=== PATIENT | female | born 1960 | race Caucasian/White ===

== ENCOUNTER 2019-08-12 14:13 | Outpatient (CLI) | payer MEDICAID, SELFPAY ==
--- NOTE | 2019-08-12 10:15 | DI.RAD_ITS ---
EXAM: XR KNEE LT 2V AP,LAT CLINICAL HISTORY: pain. TECHNIQUE: 2D digital imaging was performed. COMPARISON: No exams were available for comparison FINDINGS: BONES: No acute fracture is present. No bony destructive lesion is seen. Periarticular spurring is s een in the lateral femoral tibial joint and the patellofemoral joint. JOINTS: The knee is normally aligned. Small joint effusion. There is marked narrowing of the medial femoral tibial joint space. SOFT TISSUE: Normal. IMPRESSION: Degenerative changes of the left knee. DATA REPOSITORY: RADIATION DOSE DELIVERED:
== END 2019-08-12 14:33 ==
PROVIDERS: PCP Nurse Practitioner Family; Referring Provider Nurse Practitioner Family; Visit Provider Orthopaedic Surgery
DX: M25.562 Pain in left knee (principal); M25.462 Effusion, left knee; M17.12 Unilateral primary osteoarthritis, left knee
CPT/HCPCS: 73560

== ENCOUNTER 2020-12-29 11:58 | Outpatient (CLI) | payer MEDICAID, SELFPAY ==
--- NOTE | 2020-12-29 10:30 | DI.RAD_ITS ---
Exam(s) XR KNEE LT 1V XR STANDING ALIGNMENT EXAM: XR STANDING ALIGNMENT and XR knee LT 1 V CLINICAL HISTORY: left knee DJD. TECHNIQUE: 2D digital imaging was performed. COMPARISON: CR XR KNEE LT 2V AP,LAT from 08/12/2019 CR XR KNEE LT 2V AP,LAT from 08/12/2019 FINDINGS: Evaluation of the left knee, again shows marked loss of the medial joint compartment with bone on bon e. Mild spurring is seen at the posterior patella. There is a left knee joint effusion. The right knee is well maintained. The hips and ankles are unremarkable. The right lower extremity measures 79.4 cm. The left lower extremity measures 80.4 cm. SOFT TISSUE: Normal. IMPRESSION: Osteoarthritis of the left knee. DATA REPOSITORY: RADIATION DOSE DELIVERED:
== END 2020-12-29 11:59 | disposition home or self-care (01) ==
LOC: DIORS 11:59
PROVIDERS: PCP Nurse Practitioner Family; Referring Provider Nurse Practitioner Family; Visit Provider Physician Assistant
DX: M25.562 Pain in left knee (principal); M25.462 Effusion, left knee; M17.12 Unilateral primary osteoarthritis, left knee
CPT/HCPCS: 73560; 77073

== ENCOUNTER 2021-03-13 03:12 | Outpatient (CLI) | payer MEDICAID, SELFPAY ==
[2021-03-13 09:58] LABS: HCT 41.5 % (36.0-46.0); HGB 12.5 g/dL (11.2-15.7); MCH 28.3 pg (27.0-33.0); MCHC 30.1 % (32.0-36.0); MCV 94.1 fL (80-95); MPV 9.4 fL (8.0-11.0); Platelet Count 222 10^3/uL (130-400); RBC 4.41 10^6/uL (3.93-5.22); RDW 14.6 % (11.7-14.6); RDW-SD 50.9 fL; WBC 6.97 10^3/uL (4.4-10.8)
[2021-03-13 10:50] LABS: Anion Gap 7.8 mmol/L (3-11); BUN 21 mg/dL (7-18); CO2 29.2 mmol/L (21.0-32.0); CREATININE 0.9 mg/dL (0.55-1.02); Calcium 8.8 mg/dL (8.5-10.1); Chloride 105 mmol/L (98-107); Glucose 99 mg/dL (74-106); Potassium 4.6 mmol/L (3.5-5.1); Sodium 142 mmol/L (136-145)
[2021-03-13 13:34] LABS: Source Nasal/Nares
[2021-03-13 18:38] LABS: COVID-19 PCR Negative (Negative)
== END 2021-03-13 03:13 | disposition home or self-care (01) ==
LOC: LBO 03:12
PROVIDERS: PCP Student in an Organized Health Care Education/Training Program; Visit Provider Student in an Organized Health Care Education/Training Program
DX: M25.562 Pain in left knee (principal); M17.12 Unilateral primary osteoarthritis, left knee; Z20.822 Contact with and (suspected) exposure to COVID-19; Z01.818 Encounter for other preprocedural examination; Z01.812 Encounter for preprocedural laboratory examination
CPT/HCPCS: 36415; 80048; 85027; 87635

== ENCOUNTER 2021-03-14 07:52 | Day surgery (SDC) | payer MEDICAID, SELFPAY ==
[2021-03-14] VITALS (11 sets, daily range): BP systolic 117–170; BP diastolic 51–104; PULSE 44–68; RESP 12–16; TEMP 36.2–36.6; O2SAT 93–99; BMI 35.3
--- NOTE | 2021-03-14 07:36 | DSE_ITS ---
Documented by User: Haily Brian 03/14/21 07:42 DS: Diagnosis Discharge Diagnosis (1) Primary osteoarthritis of left knee: Status: Chronic Discharge Plan Disposition Patient Disposition: HOME Condition: Good Discharge Details Reason For Visit: Left knee DJD Attending Provider: Aldair Marina Primary Care Provider: Judy Strickland Home Meds and New Rx's Prescriptions: New acetaminophen 500 mg tablet 1,000 mg PO Q8H PRN Qty: 90 RF: 0 aspirin 81 mg tablet,delayed release (DR/EC) 81 mg PO BID 30 Days Qty: 60 RF: 0 celecoxib [Celebrex] 200 mg capsule 200 mg PO BID Qty: 30 RF: 0 docusate sodium [Colace] 100 mg capsule 100 mg PO BID Qty: 30 RF: 0 gabapentin 300 mg capsule 300 mg PO QHS Qty: 14 RF: 0 oxycodone 5 mg tablet 5 mg PO Q4H PRN (Reason: severe post-operative pain) Qty: 18 RF: 0 Continued magnesium 200 mg tablet 200 mg PO .COMPLEX RF: 0 Trelegy Ellipta 100-62.5-25 mcg blister with device 1 inh IH DAILY Qty: 60 RF: 12 omeprazole 20 mg tablet,delayed release (DR/EC) 20 mg PO BID PRN PRN (Reason: acid reflux) RF: 0 albuterol sulfate [Ventolin HFA] 90 mcg/actuation HFA aerosol inhaler 2 puff Inhalation PRN PRN (Reason: shortness of breath or wheezing) Qty: 8.5 RF: 12 albuterol sulfate 2.5 mg /3 mL (0.083 %) solution for nebulization 2.5 mg Inhalation PRN PRN (Reason: shortness of breath or wheezing) Qty: 90 RF: 12 loratadine 5 MG/5 ML solution 10 mg PO DAILY PRNRF: 0 multivitamin 1 EACH capsule 1 ea PO DAILY RF: 0 cholecalciferol (vitamin D3) [Vitamin D3] 2,000 UNIT tablet 2,000 unit PO DAILY RF: 0 Discontinued celecoxib [Celebrex] 200 mg capsule 200 mg PO BID Qty: 180 RF: 4 No Action celecoxib [Celebrex] 200 mg Capsule 200 mg BID RF: 0 acetaminophen [Tylenol Extra Strength] 500 mg Capsule 1,500 mg PO TID RF: 0 Discharge Instructions Additional Instructions: Total Knee Discharge Instructions Activity: The most important activity is to walk. You should try to take short walks a few times a day. It is important that when resting you work on keeping the knee straight. Avoid putting a pillow behind the knee as this will encourage flexion. Work on range of motion exercises as provided by [facility]. If you have the [employer] bike coming, this will be your primary tool for exercise after the knee replacement. You should use it and follow the directions for the knee. Utilize the other exercises sparingly based on your symptoms. - Start outpatient physical therapy within 2 weeks. - You should wear the DEDRA hose on both legs for 2 weeks. You may remove these at night. You may also use any compression sock in place of the DEDRA hose. - Utilize [employer] to review exercises, see videos on exercises and obtain basic information pertaining to your surgery and your recovery. Dressing: Remove the Darion wrap by 2 days after your surgery and put on the DEDRA stocking given to you from the hospital. Keep the surgical dressing (underneath the DARION wrap) in place for at least one week. After the first week it may be removed and replaced with light gauze and tape or nothing. The wound and dressing may get wet after 3 days but avoid soaking the dressing or otherwise it will need to be changed. Many people prefer covering the dressing with cling wrap (saran wrap) to minimize it from getting soaked. If it gets wet, just pat dry. If it starts to peel off then it will need to be changed. Medications: - You should take Tylenol and anti-inflammatory Celebrex as your primary pain control medications. If the Celebrex is too expensive or not covered, please call the office for another alternative (Advil/Ibuprofen or Naproxen/Aleve) - You have been prescribed a stronger pain medication Oxycodone for breakthrough pain, take as needed as prescribed. - You normally take Omeprazole, a stomach acid reduction agent will continue to take this daily after surgery to help reduce stomach acid and reflux. - You have been prescribed Gabapentin to take at night for restlessness and nerve pain. - You will be taking Aspirin 81mg twice a day for DVT prevention unless instructed otherwise. - If you have constipation you should take Colace (which has been prescribed) or Miralax (which may be purchased [id number]). It takes most people 3-4 days to have a bowel movement. Follow-up: 2 weeks If you have any acute concerns or questions, please do not hesitate to contact the office at [phone]. You may contact Dr. Marina with any questions after hours through the hospital at [phone] or on his cell phone at [phone]. Referrals: Aldair Marina MD [ [facility] STAFF PHYSICIAN] - Equipment/Supplies: Walker Activity:: Elevate Remove Dressings/Wound Care:: Do Not Remove Shower/Bathe:: Cover Diet:: As Tolerated Discharge Orders Discharge Orders: Discharge Order (Routine); Ordered 03/14/21 Ordered By: Aldair Marina DS: Data Vitals/I&O Vitals and I&O: Intake & Output 03/13/21 03/13/21 03/14/21 11:59 23:59 11:59 Weight 79.4 kg PFSH All Active Problems (Updated 03/14/21 @ 08:26 by Bridget Panda) Primary osteoarthritis of left knee (Chronic) Most recent steroid injection: 09/12/2020; 06/02/2020 Synvisc injection: 07/12/2020 Intestinal disaccharidase deficiency (Acute) Anemia (Chronic) pt denies history of anemia Generalized anxiety disorder (Acute) Depressive disorder (Chronic) Obstructive sleep apnea syndrome in adult (Acute) Migraine without aura (Acute) Allergic rhinitis (Acute) Cholelithiasis without obstruction (Acute) Localized edema (Acute) Polyp of cervix (Acute) Menopause present (Acute) Derangement of medial meniscus of left knee (Acute) COPD (chronic obstructive pulmonary disease) (Chronic) Medical History (Updated 03/14/21 @ 08:26 by Bridget Panda) Acute bronchospasm Acute exacerbation of chronic obstructive airways disease COPD (chronic obstructive pulmonary disease) History of asthma History of obstructive sleep apnea pt. reports resolved with wt. 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 reports two procedures Family History (Updated 01/03/21 @ 15:21 by Tiara Scott) Mother Heart disease Hypertension Sister Heart disease age 61 Hypertension Father Emphysema, unspecified Social History (Updated 03/10/21 @ 14:07 by Della Gray) Smoking/Tobacco Use Status: Former Tobacco Use Quit Date: 08/28/01 Pack-years: 40 Second Hand Exposure: Yes Smoking risk assessment performed?: Yes Alcohol Intake: current Alcohol Intake frequency: a few times a month Alcohol type: wine Details: 1 wine weekly Drug use: Never Substance use type: does not use Details: alcohol: t-2, glass of wine Current gender identity: female Do you feel safe at home: Yes Do you feel safe in your relationship?: Yes Additional Social history: 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 Documented by User: Aldair Marina MD 03/14/21 13:57 Date of service: 03/14/21 Time of Service: 13:56 Discharge Plan Disposition Patient Disposition: HOME Condition: Good Discharge Details Reason For Visit: Left knee DJD Attending Provider: Aldair Marina Primary Care Provider: Judy Strickland Home Meds and New Rx's Prescriptions: New acetaminophen 500 mg tablet 1,000 mg PO Q8H PRN Qty: 90 RF: 0 aspirin 81 mg tablet,delayed release (DR/EC) 81 mg PO BID 30 Days Qty: 60 RF: 0 celecoxib [Celebrex] 200 mg capsule 200 mg PO BID Qty: 30 RF: 0 docusate sodium [Colace] 100 mg capsule 100 mg PO BID Qty: 30 RF: 0 gabapentin 300 mg capsule 300 mg PO QHS Qty: 14 RF: 0 oxycodone 5 mg tablet 5 mg PO Q4H PRN (Reason: severe post-operative pain) Qty: 18 RF: 0 Continued magnesium 200 mg tablet 200 mg PO .COMPLEX RF: 0 Trelegy Ellipta 100-62.5-25 mcg blister with device 1 inh IH DAILY Qty: 60 RF: 12 omeprazole 20 mg tablet,delayed release (DR/EC) 20 mg PO BID PRN PRN (Reason: acid reflux) RF: 0 albuterol sulfate [Ventolin HFA] 90 mcg/actuation HFA aerosol inhaler 2 puff Inhalation PRN PRN (Reason: shortness of breath or wheezing) Qty: 8.5 RF: 12 albuterol sulfate 2.5 mg /3 mL (0.083 %) solution for nebulization 2.5 mg Inhalation PRN PRN (Reason: shortness of breath or wheezing) Qty: 90 RF: 12 loratadine 5 MG/5 ML solution 10 mg PO DAILY PRNRF: 0 multivitamin 1 EACH capsule 1 ea PO DAILY RF: 0 cholecalciferol (vitamin D3) [Vitamin D3] 2,000 UNIT tablet 2,000 unit PO DAILY RF: 0 Discontinued celecoxib [Celebrex] 200 mg capsule 200 mg PO BID Qty: 180 RF: 4 No Action celecoxib [Celebrex] 200 mg Capsule 200 mg BID RF: 0 acetaminophen [Tylenol Extra Strength] 500 mg Capsule 1,500 mg PO TID RF: 0 Discharge Instructions Additional Instructions: Total Knee Discharge Instructions Activity: The most important activity is to walk. You should try to take short walks a few times a day. It is important that when resting you work on keeping the knee straight. Avoid putting a pillow behind the knee as this will encourage flexion. Work on range of motion exercises as provided by Physical [facility]. If you have the [employer] bike coming, this will be your primary tool for exercise after the knee replacement. You should use it and follow the dire ctions for the knee. Utilize the other exercises sparingly based on your symptoms. - Start outpatient physical therapy within 2 weeks. - You should wear the DEDRA hose on both legs for 2 weeks. You may remove these at night. You may also use any compression sock in place of the DEDRA hose. - Utilize [employer] to review exercises, see videos on exercises and obtain basic information pertaining to your surgery and your recovery. Dressing: Remove the Darion wrap by 2 days after your surgery and put on the DEDRA stocking given to you from the hospital. Keep the surgical dressing (underneath the DARION wrap) in place for at least one week. After the first week it may be removed and replaced with light gauze and tape or nothing. The wound and dressing may get wet after 3 days but avoid soaking the dressing or otherwise it will need to be changed. Many people prefer covering the dressing with cling wrap (saran wrap) to minimize it from getting soaked. If it gets wet, just pat dry. If it starts to peel off then it will need to be changed. Medications: - You should take Tylenol and anti-inflammatory Celebrex as your primary pain co ntrol medications. If the Celebrex is too expensive or not covered, please call the office for another alternative (Advil/Ibuprofen or Naproxen/Aleve) - You have been prescribed a stronger pain medication Oxycodone for breakthrough pain, take as needed as prescribed. - You normally take Omeprazole, a stomach acid reduction agent will continue to take this daily after surgery to help reduce stomach acid and reflux. - You have been prescribed Gabapentin to take at night for restlessness and nerve pain. - You will be taking Aspirin 81mg twice a day for DVT prevention unless instructed otherwise. - If you have constipation you should take Colace (which has been prescribed) or Miralax (which may be purchased [id number]). It takes most people 3-4 days to have a bowel movement. Follow-up: 2 weeks If you have any acute concerns or questions, please do not hesitate to contact the office at [phone]. You may contact Dr. Marina with any questions after hours through the hospital at [phone] or on his cell phone at [phone]. Referrals: Aldair Marina MD [ [facility] STAFF PHYSICIAN] - Equipment/Supplies: Walker Activity:: Elevate Remove Dressings/Wound Care:: Do Not Remove Shower/Bathe:: Cover Diet:: As Tolerated Discharge Orders Discharge Orders: Discharge Order (Routine); Ordered 03/14/21 Ordered By: Aldair Marina DS: Summary Time Spent with Patient providing and/or coordinating discharge services: Less than 30 minutes Status at Discharge Functional status at discharge: uses cane/walker Overall status at discharge: patient is progressing back to baseline Mental Status: mental status grossly normal Speech and Movement: speech and movement normal Mood: congruent mood Affect: normal affect Exam Psych Mental Status: mental status grossly normal Speech and Movement: speech and movement normal Mood: congruent mood Affect: normal affect PFSH All Active Problems (Updated 03/14/21 @ 08:26 by Bridget Panda) Primary osteoarthritis of left knee (Chronic) Most recent steroid injection: 09/12/2020; 06/02/2020 Synvisc injection: 07/12/2020 Intestinal disaccharidase deficiency (Acute) Anemia (Chronic) pt denies history of anemia Generalized anxiety disorder (Acute) Depressive disorder (Chronic) Obstructive sleep apnea syndrome in adult (Acute) Migraine without aura (Acute) Allergic rhinitis (Acute) Cholelithiasis without obstruction (Acute) Localized edema (Acute) Polyp of cervix (Acute) Menopause present (Acute) Derangement of medial meniscus of left knee (Acute) COPD (chronic obstructive pulmonary disease) (Chronic) Medical History (Updated 03/14/21 @ 08:26 by Bridget Panda) Acute bronchospasm Acute exacerbation of chronic obstructive airways disease COPD (chronic obstructive pulmonary disease) History of asthma History of obstructive sleep apnea pt. reports resolved with wt. 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 reports two procedures Family History (Updated 01/03/21 @ 15:21 by Tiara Scott) Mother Heart disease Hypertension Sister Heart disease age 61 Hypertension Father Emphysema, unspecified Social History (Updated 03/10/21 @ 14:07 by Della Gray) Smoking/Tobacco Use Status: Former Tobacco Use Quit Date: 08/28/01 Pack-years: 40 Second Hand Exposure: Yes Smoking risk assessment performed?: Yes Alcohol Intake: current Alcohol Intake frequency: a few times a month Alcohol type: wine Details: 1 wine weekly Drug use: Never Substance use type: does not use Details: alcohol: t-2, glass of wine Current gender identity: female Do you feel safe at home: Yes Do you feel safe in your relationship?: Yes Additional Social history: 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
[2021-03-14] MEDS: Celecoxib 200 MG CAP 400 MG PO (08:44)
[2021-03-14] MEDS: Acetaminophen 500 MG TAB 1000 MG PO (08:44)
[2021-03-14] MEDS: Gabapentin 300 MG CAP PO (08:45)
[2021-03-14] MEDS: Lactated Ringers 1,000 ML 80 ML IV (08:55)
--- NOTE | 2021-03-14 09:06 | W.ANESPRE ---
General Info Date of Service Date Performed: 03/14/21 Height: 4 ft 11 in Weight: 79.4 kg Body Mass Index (BMI): 35.3 Surgical Procedure: Operation Date: 03/14/21 09:40 Proposed Procedures Side Surgeon p Knee Total Arthroplasty Left Aldair Marina MD Meds Allergies and Home Medications Allergies Allergy/AdvReac Type Severity Reaction Status Date / Time prednisone Allergy Severe freezes Unverified 03/14/21 08:16 joints, hands swell, affects breathing, hives/rash levofloxacin [From Levaquin] Allergy Intermediate Skin Rash Unverified 03/14/21 08:16 Home Medication Medication Instructions Recorded cholecalciferol (vitamin D3) 2,000 unit PO DAILY 10/11/16 [Vitamin D3] multivitamin 1 ea PO DAILY 10/11/16 loratadine 10 mg PO DAILY PRN ml 10/17/17 albuterol sulfate 2.5 mg INHALATION PRN PRN #90 ml 03/10/21 albuterol sulfate 90 mcg/actuation 2 puff INHALATION PRN PRN #8.5 g 03/10/21 aerosol inhaler fluticasone fur. 100 mcg-umeclid 1 inh IH DAILY #60 ea 03/10/21 62.5 mcg-vilant 25 mcg inhalat.powder magnesium 200 mg tablet 200 mg PO .COMPLEX 03/10/21 omeprazole 20 mg tablet,delayed 20 mg PO BID PRN PRN tab 03/10/21 release acetaminophen 1,000 mg PO Q8H PRN #90 tab 03/14/21 acetaminophen [Tylenol Extra 1,500 mg PO TID 03/14/21 Strength] aspirin 81 mg PO BID 30 Days #60 tab 03/14/21 celecoxib [Celebrex] 200 mg BID 03/14/21 celecoxib [Celebrex] 200 mg PO BID #30 cap 03/14/21 docusate sodium [Colace] 100 mg PO BID #30 cap 03/14/21 gabapentin 300 mg PO QHS #14 cap 03/14/21 oxycodone 5 mg PO Q4H PRN #18 tab 03/14/21 Current Visit Medications: Current Medications Generic Name Dose Route Start Last Admin Trade Name Freq PRN Reason Stop Dose Admin Acetaminophen 1,000 mg 03/14/21 06:00 03/14/21 08:44 Acetaminophen 500 Mg Tab PO 1,000 mg PREOP JACKELYN Administration Acetaminophen 1,000 mg 03/14/21 09:00 Acetaminophen 500 Mg Tab PO TID JACKELYN Aspirin 81 mg 03/14/21 09:00 Aspirin E.C. 81 Mg Tabec PO BID JACKELYN Celecoxib 400 mg 03/14/21 06:00 03/14/21 08:44 Celecoxib 200 Mg Cap PO 400 mg PREOP JACKELYN Administration Celecoxib 200 mg 03/14/21 09:00 Celecoxib 200 Mg Cap PO BID JACKELYN Docusate Sodium 100 mg 03/14/21 07:33 Docusate Sodium 100 Mg Cap PO BID PRN PRN Constipation Gabapentin 300 mg 03/14/21 06:00 03/14/21 08:45 Gabapentin 300 Mg Cap PO 300 mg PREOP JACKELYN Administration Gabapentin 300 mg 03/14/21 22:00 Gabapentin 300 Mg Cap PO HS JACKELYN Hydromorphone HCl 0.5 mg 03/14/21 07:33 Hydromorphone 2 Mg/Ml Vial IVP Q2H PRN PRN Tranexamic Acid 1,000 mg/ 60 mls @ 360 mls/hr 03/14/21 06:00 Sodium Chloride IVPB PREOP JACKELYN Tranexamic Acid 1,000 mg/ 60 mls @ 360 mls/hr 03/14/21 06:00 Sodium Chloride IVPB DIRECTED JACKELYN Ringer's Solution 1,000 mls @ 80 mls/hr 03/14/21 06:00 03/14/21 08:55 IV 03/24/21 23:59 80 mls/hr INFUSION JACKELYN Administration Cefazolin Sodium/Dextrose 2 gm in 50 mls @ 100 mls/hr 03/14/21 06:00 Ancef Duplex IVPB 03/14/21 16:00 PREOP JACKELYN Cefazolin Sodium/Dextrose 1 gm in 50 mls @ 100 mls/hr 03/14/21 10:00 Ancef Duplex IVPB 03/15/21 02:29 Q8H JACKELYN IV Miscellaneous Supplies 1 each 03/14/21 06:00 Iv Access IV 03/24/21 23:59 DIRECTED JACKELYN Oxycodone HCl 0 mg 03/14/21 07:33 Oxycodone 5 Mg Tab PO Q3H PRN PRN Pain Pantoprazole Sodium 40 mg 03/15/21 07:30 Pantoprazole 40 Mg Tabcr PO DAILY@0730 JACKELYN Polyethylene Glycol 17 gm 03/14/21 07:33 Polyethylene Glycol 3350 17 Gm Packet PO BID PRN PRN Constipation Sodium Chloride 0 ml 03/14/21 06:00 Normal Saline Flush 10 Ml Syr IV 03/24/21 23:59 PRN PRN Sodium Chloride 0 ml 03/14/21 06:00 Normal Saline 10 Ml Vial IJ 03/24/21 23:59 DIRECTED PRN Sterile Water 0 ml 03/14/21 06:00 Water,Injection,Sterile 10 Ml Vial IJ 03/24/21 23:59 DIRECTED PRN PFSH Active Problems Active Problems: Problem Status Onset Code Primary osteoarthritis of left knee M17.12 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 Anemia D64.9 Generalized anxiety disorder F41.1 Depressive disorder F32.9 Obstructive sleep apnea syndrome in adult G47.33 Migraine without aura G43.009 Allergic rhinitis J30.9 Cholelithiasis without obstruction K80.20 Localized edema R60.0 Polyp of cervix N84.1 Menopause present Z78.0 Derangement of medial meniscus of left knee M23.304 COPD (chronic obstructive pulmonary disease) J44.9 Medical History Medical History (Updated 03/14/21 @ 08:26 by Bridget Panda) Acute bronchospasm Acute exacerbation of chronic obstructive airways disease COPD (chronic obstructive pulmonary disease) History of asthma History of obstructive sleep apnea pt. reports resolved with wt. loss Pulmonary hypertension Severe obesity Medical History Comments:: Pt. states she has a short neck, so they have a hard time trying to get the tube down my throat, during my they broke my front teeth, and during my nasal surgery I was a mini coma, and then during a second nasal surgery I ended up requiring oxygen for a year Surgical History Surgical History History of x2 S/P cholecystectomy 09/23/2015 S/P laparoscopic sleeve gastrectomy 12/04/2016 S/P tubal ligation 03/25/1988 Status post operation on nasal sinus ~2003, pt. reports two procedures Tobacco Smoking/Tobacco Use Status: Former Tobacco Use Second hand exposure: Yes Alcohol Alcohol Intake: current Alcohol intake frequency: a few times a month Alcohol type: wine Details: 1 wine weekly Substance Use Substance use: Never Substance use type: does not use Details: alcohol: t-2, glass of wine Vital Signs and Lab Results Vital Signs Most Recent Vital Signs in EMR: Most Recent Vital Signs Temp Pulse Resp BP Pulse Ox 36.4 C L 64 16 131/90 95 03/14/21 08:35 03/14/21 08:35 03/14/21 08:35 03/14/21 08:35 03/14/21 08:35 Lab Results Blood Type / Crossmatch: No Data to Display Complete Blood Count: White Blood Count 6.97 10^3/uL (4.4-10.8) 03/13/21 09:54 03/13/21 Red Blood Count 4.41 10^6/uL (3.93-5.22) 03/13/21 09:54 03/13/21 Hemoglobin 12.5 g/dL (11.2-15.7) 03/13/21 09:54 03/13/21 Hematocrit 41.5 % (36.0-46.0) 03/13/21 09:54 03/13/21 Platelet Count 222 10^3/uL (130-400) 03/13/21 09:54 03/13/21 Complete Metabolic Panel: Sodium Level 142 mmol/L (136-145) 03/13/21 09:54 03/13/21 Potassium Level 4.6 mmol/L (3.5-5.1) 03/13/21 09:54 03/13/21 Chloride Level 105 mmol/L (98-107) 03/13/21 09:54 03/13/21 Carbon Dioxide Level 29.2 mmol/L (21.0-32.0) 03/13/21 09:54 03/13/21 Blood Urea Nitrogen 21 mg/dL (7-18) H 03/13/21 09:54 03/13/21 Creatinine 0.9 mg/dL (0.55-1.02) 03/13/21 09:54 03/13/21 Estimated GFR/1.73 m2 >= 60.00 (mL/min/1.73m2) 03/13/21 09:54 03/13/21 Calcium Level 8.8 mg/dL (8.5-10.1) 03/13/21 09:54 03/13/21 Glucose Level 99 mg/dL (74-106) 03/13/21 09:54 03/13/21 Liver Function Panel: No Data to Display Coagulation Panel: No Data to Display Cardiac Panel: No Data to Display Arterial Blood Gas: No Data to Display Venous Blood Gas: No Data to Display Pancreas Panel: No Data to Display Thyroid Panel: No Data to Display Infectious Disease: Coronavirus (COVID-19)(PCR) Negative (Negative) 03/13/21 10:26 03/13/21 Coronavirus 2019 Source Nasal/Nares 03/13/21 10:26 03/13/21 Blood Cultures: No Data to Display Toxicology Panel: No Data to Display Anesthesia Assessment and Plan Anesthesia History Personal History: Delayed Emergence and Other (patient states she was in a coma for one day following her first nasal surgery requiring ICU admission. she required oxygen x 1 year after a second nasal surgery. ) Family History: No Family History of Anesthesia Complications Exercise Tolerance Exercise Tolerance: Metabolic Equivalents>4 Pertinent Negatives Pertinent Negatives: No Symptoms of GERD, No Major Cardiovascular Symptoms or Complaints, No Major Pulmonary Symptoms or Complaints and No History of CVA/TIA Cardiac & Pulmonary Exam Cardiac Exam: Normal S1/S2 Heart Sounds Pulmonary Exam: Clear Bilateral Breath Sounds Implantable Cardiac Device Does patient have a Pacemaker or an ICD?: No Airway Exam Known Difficult Airway: Yes Previous Airway Comments:: patient states history of difficult intubation during . she reports that her front 2 teeth were broken and she had difficulty swallowing for months afterward. Mallampati Class: 3 Mouth Opening: Normal (> 3cm) Thyromental Distance: Greater than 3 cm Neck Range of Motion: Full ROM Neck Circumference: Thick Teeth Condition: Normal Dentition ASA Classification ASA Score: ASA 3 Emergency Case?: No NPO Status NPO Status: NPO Clears >2 hours, Solids >8 hours Anesthesia Plan Resuscitation Status: Full Code Anesthesia Technique: Spinal Anesthesia Airway Planned: Natural Airway Monitors Used: Standard Monitors
[2021-03-14] MEDS: ceFAZolin 2 GM/50 ML BAG IVPB (09:58)
--- NOTE | 2021-03-14 10:29 | W.ANESNERVE ---
Nerve Block Single Injection Procedure Date and Time Date Performed: 03/14/21 Procedure Start: 09:50 Location Where Procedure Performed Procedure Location: Day Surgery Unit Reason Performed: Postoperative Analgesia Requesting Provider: Aldair Marina Timeout Performed Timeout Performed: Yes Monitoring Used ECG, Blood Pressure and SpO2 Sterility Sterility: Hand Hygiene, Surgical Cap, Surgical Mask, Sterile Gloves and Chlorhexidine Sedation Given During Procedure Sedation Given (Indicate Dose Given): Versed IV Dose:: 2 mg Patient Mental Status Patient Mental Status: Sedate with meaningful communication Nerve Block 1st Nerve Block: Laterality: Left Block Type: Adductor Canal Needle / Catheter Used: 100mm SonoPlex II Local Anesthetic Bolus (Indicate Dose Given): Lidocaine used for local infiltration of skin, Injected in 3-5ml increments after negative blood aspiration and Bupivacaine 0.25% Dose:: 15 mL Additives (Indicate Dose Given): None Ultrasound: Sterile probe cover and gel used Ultrasound Image Saved?: Yes Nerve Stimulator: Not Used Paresthesia: None Procedure Tolerated: No Complications and Patient tolerated well Procedure Outcome: Successful Performed By: Yakelin Quintero Supervised By: Lia Moffett
[2021-03-14] MEDS: Bupivacaine 0.25% Pres-Free 30 ML VIAL (10:34)
[2021-03-14] MEDS: Ketorolac 30 MG/ML VIAL (10:35)
[2021-03-14] MEDS: Normal Saline 50 ML (10:36)
[2021-03-14] MEDS: oxyCODONE 5 MG TAB PO (13:04)
--- NOTE | 2021-03-14 13:24 | W.ANESPOSTOP ---
Postoperative Evaluation Date, Time and Location Date Performed: 03/14/21 Time Performed: 13:25 Patient Location: Day Surgery Unit Vital Signs Most Recent Imported Vital Signs: Most Recent Vital Signs Temp Pulse Resp BP Pulse Ox 36.3 C L 60 16 135/58 L 95 03/14/21 12:40 03/14/21 12:40 03/14/21 12:40 03/14/21 12:40 03/14/21 12:40 Pain Score Most Recent Pain Score: Most Recent Pain Score Pain Level 6 03/14/21 12:40 Assessment Mental Status: Awake (Alert & Oriented to Patient Baseline) Airway and Respiratory Function: Patent airway with normal (patient baseline) respiratory exam Cardiovascular Function: Hemodynamically Stable Hydration Status: Adequately Hydrated Nausea & Vomiting: No Nausea or Vomiting Pain: Pain is tolerable per patient (Currently states 3-4/10) Peripheral Nerve Block: Regional nerve block not resolved at time of post operative discharge
--- NOTE | 2021-03-14 15:52 | IN_ITS ---
Date of service: 03/14/21 Time of Service: 13:23 PT Notes Visit Reasons: Left knee DJD Physical Therapy Day Surgery Initial Evaluation Date: 03/14/2021 Referring Doctor: DAVID Mueller PT Orders: PT CONSULT: Status post Ortho surgery Precautions: WBAT on left LE with AD. Patient Profile/Admitting Diagnosis: Gabbi is a 60-year-old male with primary unilateral osteoarthritis of the left knee and is status post left total knee arthroplasty on postoperative day 0. PMHX: Medical History (Updated 03/08/21 @ 10:15 by Haily Brian) Acute exacerbation of chronic obstructive airways disease COPD (chronic obstructive pulmonary disease) Pulmonary hypertension Severe obesity Surgical History (Updated 03/08/21 @ 10:16 by Haily Brian) History of x2 S/P cholecystectomy 09/23/2015 S/P laparoscopic sleeve gastrectomy 12/04/2016 S/P tubal ligation 03/25/1988 Status post operation on nasal sinus ~2003 Social History/Home Situation: Lives with significant other in a private home with 2 steps to enter with rails on both sides. Equipment Owned/DME: None Subjective: Agreeable to PT consult. Reports being mildly lightheaded initially but was able to complete today's mobility assessment. Objective: General Observation: ASHLEY wraps to left knee. Cryocuff to left knee. TEDs on right leg. Mental Status: Alert and oriented x4 Pain: Reports 5/10 pain in the right knee at rest and with movement ROM: Right Lower Extremity: Hip flexion WFL. Hip abduction WFL. Knee flexion WFL. Ankle dorsiflexion WFL. Ankle plantarflexion WFL. Left Lower Extremity: Hip flexion WFL. Hip abduction WFL. Knee flexion 20 degree s to 80 degrees. Knee extension -20 degrees. Ankle dorsiflexion WFL. Ankle plantarflexion WFL. Strength: Right Lower Extremity: Hip flexors 5/5. Hip abductors 5/5. Knee flexors 5/5. Knee extensors 5/5. Ankle dorsiflexors 5/5. Ankle plantarflexors 5/5. Left Lower Extremity:Hip flexors 3-/5. Hip abductors 3-/5. Knee flexors 3-/5. Knee extensors 3-/5. Ankle dorsiflexors 5/5. Ankle plantarflexors 5/5. Sensation: Intact as to pain and light pressure in bilateral lower extremities Bed Mobility/Transfers: Supine to sit supervision Sit to stand contact-guard assist Stand to sit standby assist Bed to chair contact-guard assist Gait: Instructed patient with level surface ambulation of 150 feet using front wheeled walker with step through gait pattern requiring only contact-guard assist. Reported mild lightheadedness but did not limit ambulation distance and safety level. No LOB. No SOB. Stairs: Up and down 6 x 4 inch steps and 4 x 6 inch steps while holding onto rail on 1 side and onto a single-point cane on the other side with step to gait pattern during contact-guard assist with no report of increased pain. Balance: Static Sitting: Normal Dynamic Sitting: Normal Static Standing: Fair Dynamic Standing: Fair Special Tests: Mobility Limitations Standardized Measure [facility]-PAC 6 clicks Basic Mobility Inpatient Short Form: Raw Score: 2311% deficit CMS Score: Informed Consent/Education: Patient instructed in purpose of PT consult. Education and training on initial set of exercises that can be done at home have been completed with patient. Assessment: Patient requires the use of a front wheeled walker for all mobility ADL performance in order to maximize independence and reduce fall risk. Patient presents with clinical signs and symptoms consistent with current/admitting diagnoses that have resulted to mobility limitations, gait instability, generalized weakness, and impairment of motor control as demonstrated by the following impairment level findings: 1. Decreased strength to left knee major muscle groups 2. Impaired standing balance 3. Limitation of joint range of motion in left knee Impairments are contributing to the following functional limitations: 1. Inability to safely ambulate without assistive device 2. Increase completion time for mobility ADL performance 3. Increased fall risk Patient is assessed as a 22457 moderate complexity based on the following: History: 60-year-old female with impairment level findings, functional limitations, and past medical history as indicated above Examination: Demonstrable impairment in strength, balance, and mobility level with underlying impairments and functional limitations as documented above Presentation: Evolving Decision Makin moderate complexity Goals: N/A. PT evaluation and 1-2 treatment sessions only for functional mobility training using recommended AD and for HEP instruction. Plan of Care/Treatment Plan: N/A. PT evaluation and 1-2 treatment session only for functional mobility training using recommended AD and for HEP instruction. DISCHARGE RECOMMENDATIONS: [] Home with no services [] [] Home with services [specify] [X] Home with outpatient PT. Home when medically cleared by orthopedic surgeon. Will highly benefit from outpatient PT services in order to facilitate return to premorbid independent community ambulation without an assistive device. [] SNF for continued rehabilitation [] [] [facility] [] [] SNF versus LTC based on ability to participate and progress [] TREATMENT CODE/TIME: 77741 x 20 minutes, 32597 x 15 minutes beginning at 15:52 PM. Thank you for the opportunity to participate in the care of this patient. Susie Nunez PT, DPT, CLT [facility] [place], [place]
--- NOTE | 2021-03-14 18:28 | ROE_ITS ---
Date of service: 03/14/21 Time of Service: 11:28 Operative Note Operative Note DATE OF PROCEDURE: 03/14/21 PRE-OP DIAGNOSIS: Left Knee Osteoarthritis POST-OP DIAGNOSIS: same PROCEDURE: Left Total Knee Replacement SURGEON: Aldair Marina GRANULATING BLENDER: Haily Brian Refer to Anesthesia Record ESTIMATED BLOOD LOSS: 100 PATHOLOGY: none sent TOURNIQUET TIME: 0 COMPLICATIONS: None Patient was transported to: PACU Patient's condition: stable Implants: 1. Depuy Attune Cementless Cruciate Retaining Femoral Component, Size 5N 2. Depuy Attune Cementless Rotating Platform Tibial Component, Size 3 3. Depuy Attune 5x7mm CR/RP Poly 4. Depuy Attune Patellar Component, Size 32 Indications: I have seen Gabbi in clinic for symptoms of knee arthritis, confirmed with radiographic findings. She has exhausted nonoperative methods and was having significant limitations in daily function and desired better function and less pain. I discussed the technical details of a knee replacement. I explained the risks of the procedure to include, but not limited to, bleeding, infection, pain, stiffness, fracture, damage to nerves and vessels, damage to muscles and tendons, loosening, need for repeat procedure, blood clot and cardiopulmonary demise. Despite these risks, Gabbi elected to proceed. Findings: There was significant signs of arthritis throughout the knee. Procedure Description: Gabbi was greeted in the preoperative holding area where the correct side was identified and marked. The consent was reviewed with the patient and signed. The history and physical was updated. All questions were answered. Preoperative medications were administered: Acetaminophen 1000mg, Celebrex 400mg, and Gabapentin 300mg. An adductor canal block was then administered by the anesthesia team in the PACU. Gabbi was taken back to the operating room. A spinal anesthestic was then administered. The patient was placed into the supine position on the operating room table. A nonsterile tourniquet was placed high onto the leg but only used for cementing. Posts were placed for positioning during the procedure. All bony prominences were well padded. Prophylactic antibiotics in the form of Cef azolin were administered. 1g of Tranxemic Acid was given intravenously within 30 minutes of incision. The left leg was then prepped with Chloraprep and draped in a standard fashion with impervious stockinette. A second prep with Chloraprep was performed prior to application of Iodine impregnated skin protection. A timeout to confirm correct identity, side and site, procedure, allergies, anesthesia, and medical concerns was performed. With the knee in some flexion, a midline incision was made overlying the knee. Full thickness skin flaps were raised once the extensor mechanism was encount ered. These were raised medially and laterally. Any bleeding was controlled with electrocautery. Once the extensor mechanism was fully exposed, a medial parapatellar arthrotomy was performed in a flexed position. All bleeding from the arthrotomy and the geniculate arteries was coagulated. A medial subperiosteal peel was performed with electrocautery to the midcoronal plane. The fat pad was removed while keeping the patellar tendon protected. The anterior distal femur synovium was removed for later visualization. The ACL and PCL were resected and the anterior horn of the lateral meniscus was transected. The knee was then flexed with the patella everted. Large osteophytes from the tibia were removed. Large osteophytes from the femur were removed. Using a step drill, and based on preoperative templating, the femoral canal was entered. This was done with a step drill without any difficulty. The intramedullary distal femoral cut guide was inserted, set to a 5 degree valgus cut and 9mm cut thickness. The distal femoral cut guide was then held in position and pinned. With the soft tissues protected, the distal cut was performed. This was passed over a few times to ensure a planar cut. I then turned attention to the tibia. The extramedullary guide was placed onto the leg. The distal aspect was slid medial to adjust for position of center of ankle and stay in line with shaft of the tibia. Approximately 3-5 degrees of posterior slope was kept in the proximal cutting guide. The center of the guide was aligned with the PCL. The stylus was used to assess cut thickness. The medial side, most involved side, was set for a 4mm cut. This was then held in position and pinned into place with 2 additional pins and a cross pin for stability. The medial and lateral collateral ligaments were protected and the cut was performed. With this completed, it was assessed and noted to be of appropriate dimensions. The guide was removed. A spacer block was inserted and the knee was brought into extension. The 6mm spacer block provided full extension, without hyperextension and with stability of both the medial and lateral collateral ligaments was assessed. The pins from the femur and the tibia were then removed. The distal femur was then sized. The anterior stylus was placed onto the lateral ridge of the anterior femur. This indicated a size 5 Narrow femur. The external rotation of the guide was adjusted to 3 degrees to match the epicondylar axis, perpendicular to Kimberly?s line. The 4-in-1 cutting guide was the placed. The posterior medial femur cut was evaluated and appeared of good thickness. The spacer block was inserted underneath the cutting guide and stability was confirmed in 90 degrees of flexion. An victoria wing was used to confirm appropriate position of the anterior cut to avoid notching. This cutting guide was ensured to be flush on the cut surface and then pinned into place with headed pins. While protecting the soft tissues, quad tendon, and collateral ligaments, the anterior and posterior cuts were performed with a saw. The central two pins were removed and the posterior and anterior chamfers were cut next. The notch-cutting guide was placed. This was pinned to lateralize the femoral component as much as possible while keeping it flush on the cut surface. This was then pinned into position. A reciprocating saw was used to make the notch cut. A rasp smoothed the cut surfaces. The medial and lateral menisci were removed. A trial femoral component was then inserted, impacted down to the cut surfaces, and the lug holes were drilled. A provisional trial tibial component was placed and the knee was brought through range of motion. The polyethylene was trialed until there was good flexion and extension with excellent stability to the medial and lateral collaterals. The patella was tracking without thumbs. A size 7mm polyethylene component provided the best range of motion and stability with less than 2mm gapping with medial and lateral stress and full extension without significant hyperextension. The tibial cut surface was fully exposed. The tibia was then sized as a 3. The tibia had been previously marked during trialing to correspond to the center of the tibial component to help with rotation. The trial was aligned to this christy, approximately rotated to the medial 1/3rd of the tibial tubercle. The trial was pinned into place. The tibia was prepared with a reamer and a keel punch and lug holes. The knee was then brought into extension and the patella was measured as 25mm. Using the patellar clamp and cut guide, this was resected to a flat surface with at least 13mm of thickness remaining. The size 32 patella fit the best. This was oriented and then clamped into position. The lugs were drilled. The trial components were removed. The final components were opened on the back table. The periosteal and capsular tissues, especially posteriorly, around the knee were then systematically injected with a periarticular cocktail consisting of 50cc 0.25% Marcaine, 30mg Ketorolac, 20cc of Exparal and 50cc of injectable saline. The knee was thoroughly irrigated with a pulse lavage and dried. Irrisept was also used to irrigate the tissues. On the back table, with the implants opened, the cement was mixed. One batch of high viscosity cement was prepared with vacuum assistance. After the cement was ready a small amount was placed on the cut surface of the patella and the patellar button was clamped into position and held. While the cement was hardening, the cementless knee components were placed. Starting with the tibial component, the tibia was subluxed anteriorly and the lug holes of the component were lined up. The tibia was then impacted with an impactor and mallet until the tibial component was in contact with the tibia. The final polyethylene component was inserted. Then, the femoral component was inserted. The lug holes were aligned and the component was impacted into position. The knee was irrigated with Irrisept chlorhexadine solution. This was allowed to sit in the knee for 3 minutes. After the cement had finally cured, approximately 15min, the clamp was removed from the patella and the knee was taken through range of motion. The patella was tracking with a no-thumbs technique. The capsule was then reapproximated with a No. 1 Vicryl at multiple locations. The capsule was finally closed with a No. 2 Stratafix, barbed suture. The second dosing of 1g TXA was started. Deep tissues were then reapproximated with 0 Vicryl and 2-0 Vicryl. The skin was closed with a running 3-0 Monocryl in a subcuticular fashion. This was reinforced with skin glue. A Mepilex silver dressing was applied along with a [id number] ASHLEY wrap. A CryoCuff was applied. Gabbi was transferred to the hospital bed without difficulty an suffering no apparent complication. Gabbi has a good prognosis. Physical therapy will start today and without restrictions, weight-bearing as tolerated. Aspirin 81mg BID will be used for DVT prophylaxis.
== END 2021-03-14 15:02 | disposition home or self-care (01) ==
LOC: SUR 07:54
PROVIDERS: PCP Student in an Organized Health Care Education/Training Program; Visit Provider Student in an Organized Health Care Education/Training Program
PROC: (CPT 27447; principal; 2021-03-14 09:30)
DX: M17.12 Unilateral primary osteoarthritis, left knee (principal); G47.33 Obstructive sleep apnea (adult) (pediatric); J44.9 Chronic obstructive pulmonary disease, unspecified; D64.9 Anemia, unspecified
CPT/HCPCS: 27447; 76942; 97162; J0690; J1885; J2250; J2405; J3010

== ENCOUNTER 2021-03-27 10:56 | Outpatient (CLI) | payer MEDICAID, SELFPAY ==
--- NOTE | 2021-03-27 10:00 | DI.RAD_ITS ---
Exam(s) XR KNEE LT 1V XR STANDING ALIGNMENT EXAM: XR STANDING ALIGNMENT CLINICAL HISTORY: 1ST POST OP L TKA. TECHNIQUE: 2D digital imaging was performed. Standing AP views were performed from the pelvis throu gh the ankles. COMPARISON: CR XR STANDING ALIGNMENT from 12/29/2020 CR XR STANDING ALIGNMENT from 12/29/2020 CR XR KNEE LT 1V from 03/27/2021 CR XR KNEE LT 1V from 03/27/2021 FINDINGS: BONES: No acute fracture is present. No bony destructive lesion is seen. At the level of the femoral heads, there is an overall length leg length discrepancy of 6 to 7 millimeters, with the left femoral head projecting superior to the right.. JOINTS: Knees: Total left knee prosthesis has been placed since the previous exam. Alignment is sati sfactory. No surrounding abnormal lucencies.. Right knee joint spaces are well maintained. The left ankle and hip joints are unremarkable.There is some narrowing at the medial right tibiotalar joint. SOFT TISSUE: Normal. IMPRESSION: Left total knee prosthesis. Mild leg length discrepancy. DATA REPOSITORY: RADIATION DOSE DELIVERED:
== END 2021-03-27 10:57 | disposition home or self-care (01) ==
LOC: DIORS 10:56
PROVIDERS: PCP Student in an Organized Health Care Education/Training Program; Referring Provider Student in an Organized Health Care Education/Training Program; Visit Provider Physician Assistant
DX: Z96.652 Presence of left artificial knee joint (principal); Z47.1 Aftercare following joint replacement surgery; M21.752 Unequal limb length (acquired), left femur
CPT/HCPCS: 73560; 77073

== ENCOUNTER 2022-05-07 15:48 | Outpatient (CLI) | payer MEDICAID, SELFPAY ==
--- NOTE | 2022-05-07 14:29 | DI.RAD_ITS ---
Exam(s) XR KNEE LT 2V AP,LAT EXAM: XR KNEE LT 2V AP,LAT INDICATION: ANNUAL F/U L TKA. COMPARISON: CR XR STANDING ALIGNMENT from 03/27/2021 CR XR KNEE LT 1V from 03/27/2021 TECHNIQUE: 2D digital imaging was performed. Two views. FINDINGS: No change in alignment of total knee prosthesis. No abnormal bony lucencies. Decreased soft tissue swelling. DATA REPOSITORY: RADIATION DOSE DELIVERED:
== END 2022-05-07 15:49 | disposition home or self-care (01) ==
LOC: DIORS 15:48
PROVIDERS: Visit Provider Student in an Organized Health Care Education/Training Program
DX: Z96.652 Presence of left artificial knee joint (principal)
CPT/HCPCS: 73560

== ENCOUNTER 2022-11-16 10:10 | Emergency (ER) | payer MEDICAID, SELFPAY ==
[2022-11-16 10:19] VITALS: BP 143/66; PULSE 66; RESP 17; TEMP 36.5; O2SAT 94
--- NOTE | 2022-11-16 10:27 | W.ED.GENAD ---
Discharge Plan Disposition Patient Disposition: Home Discharge Details Clinical Impression: Pain and swelling of left knee Primary Care Provider: None,None ED Provider: Mejia Orourke Home Meds and New Rx's Prescriptions: No Action magnesium 200 mg tablet 200 mg PO .COMPLEX Rx Instructions: 200 mg PO 1-2 times weekly; acetylcysteine [NAC] 600 mg capsule 600 mg PO BID Qty: 90 4RF diclofenac sodium [Voltaren Arthritis Pain] 1 % gel 4 g topical QID Qty: 100 3RF Rx Instructions: apply to left knee roflumilast 500 mcg tablet 500 mcg PO DAILY Qty: 90 12RF Rx Instructions: Start taking daily after 28 days of 250mcg dose loratadine 5 MG/5 ML solution 10 mg PO DAILY PRN levalbuterol HCl 1.25 mg/3 mL solution for nebulization 1.25 mg inhalation Q4H PRN (Reason: shortness of breath or wheezing) Qty: 540 12RF omeprazole 40 mg capsule,delayed release(DR/EC) 40 mg PO DAILY Qty: 90 3RF albuterol sulfate [Ventolin HFA] 90 mcg/actuation HFA aerosol inhaler 2 puff Inhalation PRN PRN (Reason: shortness of breath or wheezing) Qty: 8.5 12RF azithromycin 250 mg tablet See Rx Instructions PO .COMPLEX Qty: 6 0RF Rx Instructions: For 250 mg dose pack: take 500 mg today (day 1), then 250 mg for 4 days (days 2-5) PO celecoxib 200 mg capsule See Rx Instructions .ROUTE .COMPLEX Qty: 180 0RF Dose Instruction: TAKE ONE CAPSULE BY MOUTH TWICE DAILY Rx Instructions: TAKE ONE CAPSULE BY MOUTH TWICE DAILY sertraline [Zoloft] 50 mg tablet 50 mg PO DAILY Qty: 90 3RF Trelegy Ellipta 200-62.5-25 mcg blister with device See Rx Instructions .ROUTE .COMPLEX Qty: 180 8RF Dose Instruction: INHALE ONE PUFF BY MOUTH EVERY DAY Rx Instructions: INHALE ONE PUFF BY MOUTH EVERY DAY multivitamin 1 EACH capsule 1 ea PO DAILY cholecalciferol (vitamin D3) [Vitamin D3] 2,000 UNIT tablet 2,000 unit PO DAILY acetaminophen 500 mg tablet 1,000 mg PO Q8H PRN Qty: 90 0RF Rx Instructions: Take two tablets up to every 8 hours as needed for pain Discharge Instructions Instructions: Knee Pain (ED), R.I.C.E. Treatment (ED) Additional Instructions: As discussed please rest over the next couple days, apply ice, and wear Darion wrap to help with swelling. On top your normally prescribed medication you may also use [id number] acetaminophen/Tylenol as directed on packaging. If you have any new or significant worsening of symptoms feel free to return to the emergency department for reassessment Please follow-up with orthopedist if not improving Referrals: [facility] [Provider Group] Discharge Data Discharge Date/Time-TO BE ENTERED AT DEPARTURE: 11/16/22 10:42 Medical Decision Making Patient presenting to the emergency department for chief complaint of left knee pain. 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 Yesterday she noted significant swelling and discomfort and pain with range of motion. Patient denies any injury or trauma, fever chills, erythema, other joint involvement or other symptoms. Physical exam shows significant prepatellar swelling to the left knee. Otherwise exam is unremarkable. Do feel this is most likely prepatellar bursitis that is not septic but also considered is joint effusion but given exam I feel this is less likely. We will conservatively manage patient with Darion wrap, ice, and patient to continue NSAIDs that are already prescribed to her. I do not feel that joint needs to be tapped at this time as I see no signs of infection. After discussion of diagnosis and plan of care patient has no further needs, questions, or concerns and states clear understanding to return to the emergency department for any worsening symptoms. Patient was otherwise encouraged to follow-up with orthopedist next week for reassessment if not improving. This documentation was generated using [email or web address] system, please disregard any oddities of phrase or misspellings. HPI General Mode of arrival: ambulatory. Date/Time Provider Initiated Documentation: 11/16/22 10:12. Limitations to Documentation: no limitations. Information obtained by: patient and RN notes reviewed. History of Present Illness 61 year old F presents to the emergency department with the chief complaint of Left knee swelling, described as moderate, and is localized to the left and lower extremity. Patient reports no radiation. Patient started experiencing this day(s) (1) and it has been constant. Rest improves symptom(s), No exacerbating factors reported . Patient notes no other symptoms.. Patient did receive the following treatments prior to arrival, NSAID Related Data Home Medications Medication Instructions Recorded Confirmed cholecalciferol (vitamin D3) 50 2,000 unit PO DAILY 10/11/16 11/16/22 mcg (2,000 unit) tablet (Vitamin D3) multivitamin 1 ea PO DAILY 10/11/16 11/16/22 loratadine 5 mg/5 mL oral solution 10 mg PO DAILY PRN 10/17/17 11/16/22 magnesium 200 mg tablet 200 mg PO .COMPLEX 03/10/21 11/16/22 acetaminophen 500 mg tablet 1,000 mg PO Q8H PRN pain #90 tabs 03/14/21 11/16/22 diclofenac sodium 1 % topical gel 4 g topical QID #100 grams 05/08/21 11/16/22 (Voltaren Arthritis Pain) acetylcysteine 600 mg capsule (NAC) 600 mg PO BID #90 caps 10/09/21 11/16/22 levalbuterol HCl 1.25 mg/3 mL 1.25 mg (3 mL) inhalation Q4H PRN 10/11/21 11/16/22 solution for nebulization shortness of breath or wheezing #540 mL roflumilast 500 mcg tablet 500 mcg PO DAILY #90 tabs 12/20/21 11/16/22 omeprazole 40 mg capsule,delayed 40 mg PO DAILY #90 caps 02/19/22 11/16/22 release albuterol sulfate 90 mcg/actuation 2 puff inhalation PRN PRN 05/04/22 11/16/22 aerosol inhaler (Ventolin HFA) shortness of breath or wheezing #8.5 grams azithromycin 250 mg tablet See Rx Instructions PO .COMPLEX #6 09/05/22 11/16/22 tabs celecoxib 200 mg capsule See Rx Instructions .Route 10/04/22 11/16/22 .COMPLEX #180 caps sertraline 50 mg tablet (Zoloft) 50 mg PO DAILY #90 tabs 10/16/22 11/16/22 fluticasone fur. 200 mcg-umeclid See Rx Instructions .Route 11/15/22 11/16/22 62.5 mcg-vilant 25 mcg .COMPLEX #180 blisters inhalat.powder (Trelegy Ellipta) Previous Rx's Medication Instructions Recorded acetaminophen 500 mg tablet 1,000 mg PO Q8H PRN pain #90 tabs 03/14/21 diclofenac sodium 1 % topical gel 4 g topical QID #100 grams 05/08/21 (Voltaren Arthritis Pain) acetylcysteine 600 mg capsule (NAC) 600 mg PO BID #90 caps 10/09/21 levalbuterol HCl 1.25 mg/3 mL 1.25 mg (3 mL) inhalation Q4H PRN 10/11/21 solution for nebulization shortness of breath or wheezing #540 mL roflumilast 500 mcg tablet 500 mcg PO DAILY #90 tabs 12/20/21 omeprazole 40 mg capsule,delayed 40 mg PO DAILY #90 caps 02/19/22 release albuterol sulfate 90 mcg/actuation 2 puff inhalation PRN PRN 05/04/22 aerosol inhaler (Ventolin HFA) shortness of breath or wheezing #8.5 grams azithromycin 250 mg tablet See Rx Instructions PO .COMPLEX #6 09/05/22 tabs celecoxib 200 mg capsule See Rx Instructions .Route 10/04/22 .COMPLEX #180 caps sertraline 50 mg tablet (Zoloft) 50 mg PO DAILY #90 tabs 10/16/22 fluticasone fur. 200 mcg-umeclid See Rx Instructions .Route 11/15/22 62.5 mcg-vilant 25 mcg .COMPLEX #180 blisters inhalat.powder (Trelegy Ellipta) Allergies Allergy/AdvReac Type Severity Reaction Status Date / Time prednisone Allergy Severe freezes Unverified 07/04/22 14:27 joints, hands swell, affects breathing, hives/rash levofloxacin [From Levaquin] Allergy Intermediate Skin Rash Unverified 07/04/22 14:27 Sulfa (Sulfonamide AdvReac Intermediate Verified 07/04/22 14:27 Antibiotics) amoxicillin [From Augmentin] AdvReac Unknown hives Verified 07/04/22 14:27 clavulanic acid AdvReac Unknown hives Verified 07/04/22 14:27 [From Augmentin] General Stated Complaint: Orthopedic ITZ: 5 Review of Systems Constitutional Constitutional: Denies chills, Denies fever(s) and Denies malaise Musculoskeletal Musculoskeletal: Reports as per HPI, Reports arthralgias, Reports joint swelling, Reports limited range of motion, Denies muscle weakness, Denies numbness and Denies tingling Integumentary/Breasts Skin/Breast: Denies erythema and Denies rash Neurologic Neurologic: Denies numbness and Denies tingling PFSH All Active Problems (Updated 11/16/22 @ 10:34 by Mejia Orourke NP) Pain and swelling of left knee (Acute) Cough (Acute) History of total left knee replacement (Acute 03/14/21) DOS 03/14/21 Intestinal disaccharidase deficiency (Acute) Anemia (Chronic) pt denies history of anemia Generalized anxiety disorder (Acute) Depressive disorder (Chronic) Obstructive sleep apnea syndrome in adult (Acute) Migraine without aura (Acute) Allergic rhinitis (Acute) Cholelithiasis without obstruction (Acute) Localized edema (Acute) Polyp of cervix (Acute) Menopause present (Acute) COPD (chronic obstructive pulmonary disease) (Chronic) Medical History Acute bronchospasm Acute exacerbation of chronic obstructive airways disease COPD (chronic obstructive pulmonary disease) History of asthma History of obstructive sleep apnea pt. reports resolved with wt. 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 reports two procedures Family History Mother Heart disease Hypertension Sister Heart disease age 61 Hypertension Father Emphysema, unspecified Social History Smoking/Tobacco Use Status: Former Tobacco Use Quit Date: 08/28/01 Pack-years: 40 Second Hand Exposure: Yes Smoking risk assessment performed?: Yes Alcohol Intake: current Alcohol Intake frequency: a few times a month Alcohol type: wine Details: 1 wine weekly Drug use: Never Substance use type: does not use Details: alcohol: t-2, glass of wine Housing: house Current gender identity: female Do you feel safe at home: Yes Do you feel safe in your relationship?: Yes Additional Social history: 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 Exam Const General: cooperative, no acute distress and not ill appearing Orientation: alert, awake and oriented x3 HENMT Mouth: moist mucous membranes Resp Effort & Inspection: normal respiratory effort, able to speak in complete sentences and no respiratory distress Cardio Rate: regular rate Rhythm: regular rhythm Pulses: normal peripheral pulses Skin General skin exam: no rashes or lesions noted Neuro General: patient alert, patient awake, patient oriented x3, moves all extremities and no focal motor deficits Sensory Exam: no sensory deficits noted Extrem General: normal exam except as noted Left lower extremity: knee Details: tenderness Location: of the patella and of the pre-patellar area, swelling Location: of the pre-patellar area, normal ROM and knee ligament exam normal; no abrasions, no lacerations, no ecchymosis, no deformity and no unusual warmth Course Vital Signs Vital signs: Vital Signs Temperature 36.5 C 11/16/22 10:19 Pulse 66 11/16/22 10:19 Respiratory Rate 17 11/16/22 10:19 Blood Pressure 143/66 H 11/16/22 10:19 Pulse Oximetry 94 11/16/22 10:19 Temperature 36.5 C 11/16/22 10:19 Temperature Source Temporal Artery Scan 11/16/22 10:19 Pulse 66 11/16/22 10:19 Respiratory Rate 17 11/16/22 10:19 Respiratory Effort Normal, Non-Labored 11/16/22 10:22 Blood Pressure 143/66 H 11/16/22 10:19 Blood Pressure Position Sitting 11/16/22 10:19 Pulse Oximetry 94 11/16/22 10:19 Oxygen Delivery Method Room Air 11/16/22 10:19 Oxygen Flow Rate 0 11/16/22 10:19 Pain Level 8 11/16/22 10:19 PAWSS Have you Been Recently Intoxicated or Drunk Within the Last 30 days?: No Have you Ever Experienced Previous Episodes of Alcohol Withdrawal?: No Have you ever Experienced Withdrawal Seizures?: No Have you ever Experienced Delirium Tremens(DT)s?: No Have you ever undergone Alcohol Rehabilitation Treatment (i.e, inpt ot outpatient treatment programs)?: No Have you ever Experienced Blackouts?: No Have you ever Combined Alcohol with other Downers within the last 90 days?: No Have you ever Combined Alcohol with any other Substance of Abuse during the last 90 days?: No Positive Blood Alcohol level on Presentation? [PCS.BAL]: No Evidence of Increased Autonomic Activity (i.e. HR>120, tremor, sweating, agitation, nausea)?: No Result: 0
== END 2022-11-16 10:42 | disposition home or self-care (01) ==
PROVIDERS: Emergency Provider Nurse Practitioner Family
DX: M25.562 Pain in left knee (principal); R22.42 Localized swelling, mass and lump, left lower limb
CPT/HCPCS: 99282

== ENCOUNTER 2022-12-03 11:58 | Outpatient (CLI) | payer MEDICAID, SELFPAY ==
--- NOTE | 2022-12-03 08:45 | DI.RAD_ITS ---
Exam(s) XR KNEE LT 3V AP,LAT,MATY EXAM: XR KNEE LT 3V AP,LAT,MATY INDICATION: eval L anterior knee pain s/p TKA. COMPARISON: CR XR KNEE LT 2V AP,LAT from 05/07/2022 TECHNIQUE: 2D digital imaging was performed. Two views. FINDINGS: There has been no change in the alignment of the total knee prosthesis. There are no abnormal surrou nding bony lucencies. No joint effusion is visible. Impression: Stable appearance of knee prosthesis. DATA REPOSITORY: RADIATION DOSE DELIVERED:
== END 2022-12-03 11:59 | disposition home or self-care (01) ==
LOC: DIORS 11:59
PROVIDERS: Visit Provider Student in an Organized Health Care Education/Training Program
DX: M25.462 Effusion, left knee (principal); M25.562 Pain in left knee; Z47.1 Aftercare following joint replacement surgery
CPT/HCPCS: 73562

== ENCOUNTER → 2023-07-10 03:14 | Outpatient (CLI) | payer MEDICAID, SELFPAY ==
--- NOTE | 2023-07-10 09:45 | DI.MRI_ITS ---
Exam(s) MR LOWER JOINT LT WO EXAM: MR LOWER JOINT LT WO CLINICAL HISTORY: popliteal mass,s/p TKA,z96.652. TECHNIQUE: Multiplanar multisequence MRI was performed. COMPARISON: MR MR KNEE LT W/O CONTRAST from 06/07/2016 CR XR KNEE LT 3V AP,LAT,MATY from 12/03/2022 FINDINGS: BONES: There is no fracture or contusion pattern. There is a total knee prosthesis which creates ar tifact. JOINTS: A moderate-sized joint effusion is present there is synovial thickening.. Articular cartilage: Patellofemoral joint: Articular cartilage is unremarkable. Medial femoral tibial joint: Articular cartilage is unremarkable. Lateral femoral tibial joint: Articular cartilage is unremarkable. TENDONS: Extensor mechanism: Unremarkable. Medial retinaculum: Unremarkable. Lateral retinaculum: Unremarkable. Popliteus: Unremarkable. MUSCLES: Unremarkable. MENISCI: The medial meniscus is unremarkable. The lateral meniscus is unremarkable. SOFT TISSUES: A bilobed popliteal cyst is present measuring roughly 5.5 by 2.1 by 2.5 cm. There is s ynovial thickening and debris. Mild anterior and posterior subcutaneous edema. LIGAMENTS: Anterior Cruciate: Obscured Posterior Cruciate: Obscured Medial Collateral:Grossly intact Lateral Collateral: Grossly intact IMPRESSION: Total knee prosthesis. No gross evidence of loosening. Moderate size joint effusion with synovial thickening. Popliteal cyst with synovial thickening and d ebris. DATA REPOSITORY:
== END ==
PROVIDERS: Visit Provider Student in an Organized Health Care Education/Training Program
DX: Z96.652 Presence of left artificial knee joint (principal); M25.462 Effusion, left knee; M67.262 Synovial hypertrophy, not elsewhere classified, left lower leg; M71.22 Synovial cyst of popliteal space [Baker], left knee
CPT/HCPCS: 73721

== ENCOUNTER 2023-07-11 15:30 | Outpatient (CLI) | payer MEDICAID, SELFPAY ==
--- NOTE | 2023-07-11 11:00 | DI.RAD_ITS ---
Exam(s) XR KNEE LT 3V AP,LAT,MATY EXAM: XR KNEE LT 3V AP,LAT,MATY CLINICAL HISTORY: eval continued l knee pain/swelling. TECHNIQUE: 2D digital imaging was performed. Three images were obtained. Merchant's, AP and lateral views were obtained. COMPARISON: CR XR KNEE LT 3V AP,LAT,MATY from 12/03/2022 FINDINGS: BONES: There are stable post operative changes of a left total knee replacement present. No fracture or dislocation. JOINTS: The orthopedic hardware is in good position. No evidence of hardware loosening. There is no w large joint effusion. SOFT TISSUE: Vascular calcification is present. IMPRESSION: 1. The patient's left knee replacement appears intact. No suspicious lucencies are seen in or about the orthopedic hardware. 2. Large joint effusion. If there is concern for infection or loosening, nuclear medicine imaging ma y be obtained. DATA REPOSITORY: RADIATION DOSE DELIVERED:
== END 2023-07-11 15:31 | disposition home or self-care (01) ==
LOC: DIORS 15:30
PROVIDERS: Visit Provider Student in an Organized Health Care Education/Training Program
DX: Z96.652 Presence of left artificial knee joint (principal); Z47.1 Aftercare following joint replacement surgery
CPT/HCPCS: 73562

== ENCOUNTER 2023-07-11 15:56 | Outpatient (REF) | payer MEDICAID, SELFPAY ==
[2023-07-11 14:45] LABS: Clarity Cloudy
[2023-07-11 14:46] LABS: Mononuclear Cells 16 %; Polynuclear Cells 84 %
[2023-07-11 14:47] LABS: Crystals (BF) No Crystals seen
== END 2023-07-11 15:57 | disposition home or self-care (01) ==
LOC: LBN 15:56
PROVIDERS: Visit Provider Student in an Organized Health Care Education/Training Program
DX: Z96.652 Presence of left artificial knee joint (principal)
CPT/HCPCS: 87070; 87205; 89051; 89060

== ENCOUNTER 2023-07-12 11:40 | Inpatient (IN) | payer MEDICAID, SELFPAY ==
[2023-07-12] VITALS (19 sets, daily range): BP systolic 65–157; BP diastolic 36–89; PULSE 72–97; RESP 14–20; TEMP 36.3–37.3; O2SAT 90–98; BMI 32.9
--- NOTE | 2023-07-12 12:18 | ANES.PREOP_ITS ---
General Info Date of Service Date Performed: 07/12/23 Height: 4 ft 11 in Weight: 73.936 kg Body Mass Index (BMI): 32.9 Surgical Procedure: Operation Date: 07/12/23 13:40 Proposed Procedure Side Surgeon p I and D left knee of Knee w/Polyethylene Exchange Left Aldair Marina MD Meds Allergies and Home Medications Allergies Allergy/AdvReac Type Severity Reaction Status Date / Time prednisone Allergy Severe freezes Verified 07/12/23 12:22 joints, hands swell, affects breathing, hives/rash levofloxacin [From Levaquin] Allergy Intermediate Skin Rash Verified 07/12/23 12:22 Sulfa (Sulfonamide AdvReac Intermediate other Verified 07/12/23 12:22 Antibiotics) amoxicillin [From Augmentin] AdvReac Unknown hives Verified 07/12/23 12:22 clavulanic acid AdvReac Unknown hives Verified 07/12/23 12:22 [From Augmentin] Augmentin Allergy Itching Uncoded 07/12/23 12:22 Home Medication Medication Instructions Recorded cholecalciferol (vitamin D3) 50 2,000 unit PO DAILY 10/11/16 mcg (2,000 unit) tablet (Vitamin D3) multivitamin 1 ea PO DAILY 10/11/16 loratadine 5 mg/5 mL oral solution 10 mg PO DAILY PRN 10/17/17 magnesium 200 mg tablet 200 mg PO .COMPLEX 03/10/21 acetaminophen 500 mg tablet 1,000 mg (2 x 500 mg) PO Q8H PRN 03/14/21 pain #90 tabs diclofenac sodium 1 % topical gel 4 g topical QID #100 grams 05/08/21 (Voltaren Arthritis Pain) fluticasone fur. 200 mcg-umeclid See Rx Instructions .Route 11/15/22 62.5 mcg-vilant 25 mcg .COMPLEX #180 blisters inhalat.powder (Trelegy Ellipta) roflumilast 500 mcg tablet 500 mcg PO DAILY #90 tabs 01/02/23 omeprazole 40 mg capsule,delayed See Rx Instructions .Route 03/11/23 release .COMPLEX #90 caps celecoxib 200 mg capsule See Rx Instructions .Route 06/29/23 .COMPLEX #180 caps levalbuterol HCl 1.25 mg/3 mL 1.25 mg (3 mL) inhalation Q4H PRN 07/01/23 solution for nebulization shortness of breath or wheezing #540 mL albuterol sulfate 90 mcg/actuation See Rx Instructions .Route 07/05/23 aerosol inhaler (Ventolin HFA) .COMPLEX #18 grams acetaminophen 650 mg 1,300 mg PO DIRECTED 07/12/23 tablet,extended release (8HR Muscle Aches-Pain) Current Visit Medications: Current Medications Generic Name Dose Route Start Last Admin Trade Name Freq PRN Reason Stop Dose Admin Acetaminophen 1,000 mg 07/12/23 06:00 Acetaminophen 500 Mg Tab PO 08/11/23 23:59 PREOP JACKELYN Celecoxib 400 mg 07/12/23 06:00 Celecoxib 200 Mg Cap PO 08/11/23 23:59 PREOP JACKELYN Gabapentin 300 mg 07/12/23 06:00 Gabapentin 300 Mg Cap PO 08/11/23 23:59 PREOP JACKELYN Ringer's Solution 1,000 mls @ 80 mls/hr 07/12/23 06:00 IV 08/11/23 23:59 INFUSION JACKELYN Cefazolin Sodium/Dextrose 2 gm in 50 mls @ 100 mls/hr 07/12/23 06:00 Ancef Duplex IVPB 08/11/23 23:59 PREOP JACKELYN Tranexamic Acid/Sodium Chloride 1,000 mg in 100 mls @ 600 mls/hr 07/12/23 06:00 IVPB 08/11/23 23:59 PREOP JACKELYN IV Miscellaneous Supplies 1 each 07/12/23 06:00 Iv Access IV 08/11/23 23:59 DIRECTED JACKELYN Sodium Chloride 0 ml 07/12/23 06:00 Normal Saline Flush 10 Ml Syr IV 08/11/23 23:59 PRN PRN Sodium Chloride 0 ml 07/12/23 06:00 Normal Saline 10 Ml Vial IJ 08/11/23 23:59 DIRECTED PRN Sterile Water 0 ml 07/12/23 06:00 Water,Injection,Sterile 10 Ml Vial IJ 08/11/23 23:59 DIRECTED PRN PFSH Active Problems Active Problems: Problem Status Onset Code Infection of prosthetic left knee joint T84.54XA Painful total knee replacement, left T84.84XA, Z96.652 Former cigarette smoker Z87.891 Cough R05.9 History of total left knee replacement 03/14/21 Z96.652 COPD (chronic obstructive pulmonary disease) J44.9 Menopause present Z78.0 Polyp of cervix N84.1 Localized edema R60.0 Cholelithiasis without obstruction K80.20 Allergic rhinitis J30.9 Migraine without aura G43.009 Obstructive sleep apnea syndrome in adult G47.33 Depressive disorder F32.9 Generalized anxiety disorder F41.1 Anemia D64.9 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 reports resolved with wt. loss History of asthma Acute bronchospasm COPD (chronic obstructive pulmonary disease) Acute exacerbation of chronic obstructive airways disease Pulmonary hypertension Pt. states she had this worked up and no longer is an issue Severe obesity Medical History Comments:: Pt. states during her sinus surgery she didn't wake up well from that surgery Surgical History Surgical History History of x2 Status post operation on nasal sinus ~2003, pt. reports two procedures S/P tubal ligation 03/25/1988 S/P cholecystectomy 09/23/2015 S/P laparoscopic sleeve gastrectomy 12/04/2016 Tobacco Smoking/Tobacco Use Status: Former Tobacco Use Second hand exposure: Yes Alcohol Alcohol Intake: current Alcohol intake frequency: a few times a month Alcohol type: wine Details: 1 wine weekly Substance Use Substance use: Never Substance use type: does not use Details: alcohol: t-2, glass of wine Vital Signs and Lab Results Vital Signs Most Recent Vital Signs in EMR: Temp Pulse Resp BP Pulse Ox 36.7 C 82 18 152/74 H 97 07/12/23 12:30 07/12/23 12:30 07/12/23 12:30 07/12/23 12:30 07/12/23 12:30 Lab Results 07/12/23 Unknown 07/12/23 12:11 Blood Type / Crossmatch: 2 No Data to Display Complete Blood Count: 2 No Data to Display Complete Metabolic Panel: 2 Est GFR (CKD-EPI 2020) Pending 07/12/23 12:38 Liver Function Panel: 2 No Data to Display Coagulation Panel: 2 No Data to Display Cardiac Panel: 2 No Data to Display Arterial Blood Gas: 2 No Data to Display Venous Blood Gas: 2 No Data to Display Pancreas Panel: 2 No Data to Display Thyroid Panel: 2 No Data to Display Infectious Disease: 2 No Data to Display Blood Cultures: 2 No Data to Display Toxicology Panel: 2 No Data to Display Anesthesia Assessment and Plan Anesthesia History Personal History: Other Family History: No Family History of Anesthesia Complications Exercise Tolerance Exercise Tolerance: Metabolic Equivalents>4 Cardiac & Pulmonary Exam Cardiac Exam: Normal S1/S2 Heart Sounds Pulmonary Exam: Clear Bilateral Breath Sounds Implantable Cardiac Device Does patient have a Pacemaker or an ICD?: No Airway Exam Known Difficult Airway: Yes Mallampati Class: 3 Mouth Opening: Normal (> 3cm) Thyromental Distance: Greater than 3 cm Neck Range of Motion: Full ROM Neck Circumference: Thick Teeth Condition: Normal Dentition ASA Classification ASA Score: ASA 3 Emergency Case?: No NPO Status NPO Status: NPO Clears >2 hours, Solids >8 hours Anesthesia Plan Resuscitation Status: Full Code Anesthesia Technique: Spinal Anesthesia Airway Planned: Natural Airway Pain Management: Surgeon and patient request nerve block Monitors Used: Standard Monitors Preoperative Comments:: 62 yo female for I/D polyswap knee. Sig PMHx: ELIAN, pHTN, COPD/asthma (trelegy, albuterol, roflumilast. breathing feels much better than in the past), depression/anxiety, former smoker, occ EtOH. Previous Anes: - TKA, spinal 2 mL chloro, minimal sedation. Adductor, 2 mg, 15 mL 0.25%. - knee scope, sevo, LMA 4.
[2023-07-12 12:58] LABS: HCT 35.1 % (36.0-46.0); HGB 10.4 g/dL (11.2-15.7); MCH 24.4 pg (27.0-33.0); MCHC 29.6 % (32.0-36.0); MCV 82 fL (80-95); MPV 8.7 fL (8.0-11.0); Platelet Count 420 10^3/uL (130-400); RBC 4.26 10^6/uL (3.93-5.22); RDW 15.1 % (11.7-14.6); RDW-SD 45.7 fL; WBC 9.16 10^3/uL (4.4-10.8)
--- NOTE | 2023-07-12 12:58 | W.PREOPHP ---
Assessment and Plan Assessment and plan (1) Infection of prosthetic left knee joint: Status: Acute Assessment and plan: Gabbi is a 62-year-old female who is 2 and half years status post left knee replacement. Unfortunate, she has developed an infection about the left knee. Was very difficult from her history is a truly, with confidence, stated this is an acute infection. However, she is quite certain that around June 26, 2015 days ago, she had the acute worsening of symptoms with weightbearing pain and pain at all times. She has some occasional pain and there was some mild lucency seen around the periphery of the tibial implant on the previous x-rays. What is really hard to know is if there was some low-grade infection which started sometime around the trauma in November and now has acutely worsened versus some soft tissue injury from that trauma in November complicated with an acute hematogenous infection, potentially from her recent upper respiratory infection. There are limitations at [facility] and I called in the loading platform polyethylene that she has in her knee to consider all options. My concern is about this being more chronic than what she feels. I discussed with her the downside of doing debridement with implant retention versus a single or two-stage exchange. Given her expression that this is only 2 and half weeks for acute pain we can proceed with debridement, antibiotics, and implant retention. However, the sed rate is concerning given that it is already 86. The other option would be to proceed with spacer placement versus a single-stage revision. I do not have components here in house to consider single-stage revision at this time. I would also only like to do that if I know exactly what organism is growing. She denies any significant premorbid start of pain suggest loose components and therefore I think at this point the best option is to proceed with open synovectomy and debridement with polyethylene removal. I would investigate the components to make sure they are well-seated on the bone. There is any signs of loosening then I would remove the components and place a low friction spacer. She would likely require up to 6 weeks of IV antibiotics and 6 months of oral antibiotics. Will continue to await cultures for we can specify which antibiotics would be best suited in this situation. I reviewed risk to include bleeding, continued infection, need for repeat procedures, cardiopulmonary demise, sepsis, damage to nerves and vessels, damage to muscle and tendons, weakness, instability, need for repeat procedures. Despite these risk, she elects to proceed. Qualifiers: Encounter type: sequela Qualified Code(s): T84.54XS - Infection and inflammatory reaction due to internal left knee prosthesis, sequela History of Present Illness History of Present Illness Chief Complaint: Left prosthetic knee infection Narrative: Gabbi is a 62-year-old female who presented for acute worsening pain and swelling about the left knee. Please see the office note from yesterday but unfortunately this revealed an infection about the left knee. I have asked Gabbi multiple questions to ascertain when this likely occurred. Both her and her partner feel that her symptoms acutely worsened around 25 June. She was suffering from a sinus infection approximately 2 weeks prior to that. She has had some off-and-on pain since that time and injury documented in November 2022. However, from her recollection she does not feel that there is any significant start up pain. However, she did have some intermittent pain based on what she was doing with some mild swelling. At no point has she had any warmth to the knee or fevers or chills. However, over the past few days she has had some fever and subjective chills as well as warmth and swelling to the knee. Aspiration yesterday revealed greater than 30,000 cells with a preponderance of PMNs. Labs from [facility] revealed a ESR of 86 and a high-sensitivity CRP, unfortunately not regular, of 90. Otherwise, she denies any current medical issues. She did have a sinus infection which is also complicated by reaction to Augmentin. No chest pain. No shortness of breath. Review of Systems All systems reviewed & are unremarkable except as noted in HPI and below PFSH All Active Problems (Updated 07/12/23 @ 13:09 by Aldair Marina MD) Infection of prosthetic left knee joint (Acute) Painful total knee replacement, left (Acute) Former cigarette smoker (Acute) Cough (Acute) History of total left knee replacement (Acute 03/14/21) DOS 03/14/21 COPD (chronic obstructive pulmonary disease) (Chronic) Menopause present (Acute) Polyp of cervix (Acute) Localized edema (Acute) Cholelithiasis without obstruction (Acute) Allergic rhinitis (Acute) Migraine without aura (Acute) Obstructive sleep apnea syndrome in adult (Acute) Depressive disorder (Chronic) Generalized anxiety disorder (Acute) Anemia (Chronic) pt denies history of anemia Intestinal disaccharidase deficiency (Acute) Medical History History of obstructive sleep apnea pt. reports resolved with wt. loss History of asthma Acute bronchospasm COPD (chronic obstructive pulmonary disease) Acute exacerbation of chronic obstructive airways disease Pulmonary hypertension Pt. states she had this worked up and no longer is an issue Severe obesity Surgical History History of x2 Status post operation on nasal sinus ~2003, pt. reports two procedures S/P tubal ligation 03/25/1988 S/P cholecystectomy 09/23/2015 S/P laparoscopic sleeve gastrectomy 12/04/2016 Family History Mother Heart disease Hypertension Sister Heart disease age 61 Hypertension Father Emphysema, unspecified Social History Smoking/Tobacco Use Status: Former Tobacco Use Quit Date: 08/29/19 Pack-years: 40 Second Hand Exposure: Yes Smoking risk assessment performed?: Yes Alcohol Intake: current Alcohol Intake frequency: a few times a month Alcohol type: wine Details: 1 wine weekly Drug use: Never Substance use type: does not use Details: alcohol: t-2, glass of wine Housing: house Current gender identity: female Do you feel safe at home: Yes Do you feel safe in your relationship?: Yes Meds Allergies and Home Medications Allergies Allergy/AdvReac Type Severity Reaction Status Date / Time prednisone Allergy Severe freezes Verified 07/12/23 12:22 joints, hands swell, affects breathing, hives/rash levofloxacin [From Levaquin] Allergy Intermediate Skin Rash Verified 07/12/23 12:22 Sulfa (Sulfonamide AdvReac Intermediate other Verified 07/12/23 12:22 Antibiotics) amoxicillin [From Augmentin] AdvReac Unknown hives Verified 07/12/23 12:22 clavulanic acid AdvReac Unknown hives Verified 07/12/23 12:22 [From Augmentin] Augmentin Allergy Itching Uncoded 07/12/23 12:22 Home Medications Medication Instructions Recorded Confirmed Type cholecalciferol (vitamin D3) 50 2,000 unit PO DAILY 10/11/16 07/12/23 History mcg (2,000 unit) tablet (Vitamin D3) multivitamin 1 ea PO DAILY 10/11/16 07/12/23 History loratadine 5 mg/5 mL oral solution 10 mg PO DAILY PRN 10/17/17 07/12/23 History magnesium 200 mg tablet 200 mg PO .COMPLEX 03/10/21 07/12/23 History acetaminophen 500 mg tablet 1,000 mg (2 x 500 mg) PO Q8H PRN 03/14/21 07/12/23 Rx pain #90 tabs diclofenac sodium 1 % topical gel 4 g topical QID #100 grams 05/08/21 07/12/23 Rx (Voltaren Arthritis Pain) fluticasone fur. 200 mcg-umeclid See Rx Instructions .Route 11/15/22 07/12/23 Rx 62.5 mcg-vilant 25 mcg .COMPLEX #180 blisters inhalat.powder (Trelegy Ellipta) roflumilast 500 mcg tablet 500 mcg PO DAILY #90 tabs 01/02/23 07/12/23 Rx omeprazole 40 mg capsule,delayed See Rx Instructions .Route 03/11/23 07/12/23 Rx release .COMPLEX #90 caps celecoxib 200 mg capsule See Rx Instructions .Route 06/29/23 07/12/23 Rx .COMPLEX #180 caps levalbuterol HCl 1.25 mg/3 mL 1.25 mg (3 mL) inhalation Q4H PRN 07/01/23 07/12/23 Rx solution for nebulization shortness of breath or wheezing #540 mL albuterol sulfate 90 mcg/actuation See Rx Instructions .Route 07/05/23 07/12/23 Rx aerosol inhaler (Ventolin HFA) .COMPLEX #18 grams acetaminophen 650 mg 1,300 mg PO DIRECTED 07/12/23 07/12/23 History tablet,extended release (8HR Muscle Aches-Pain) Exam Const General: cooperative, healthy appearing, comfortable and no acute distress Resp Effort & Inspection: normal respiratory effort Auscultation: clear to auscultation bilaterally Cardio Rate: regular rate Rhythm: regular rhythm Results Labs 07/12/23 12:38 07/12/23 12:38 Last Vital Signs Temp 36.7 C 07/12/23 12:30 Pulse 82 07/12/23 12:30 Resp 18 07/12/23 12:30 BP 152/74 H 07/12/23 12:30 Pulse Ox 97 07/12/23 12:30
[2023-07-12 13:07] LABS: Anion Gap 8.5 mmol/L (3-11); BUN 15 mg/dL (7-18); CO2 28.5 mmol/L (21.0-32.0); CREATININE 0.9 mg/dL (0.55-1.02); Calcium 9.4 mg/dL (8.5-10.1); Chloride 104 mmol/L (98-107); Estimated GFR 73.19 (mL/min/1.73m2); Glucose 101 mg/dL (74-106); Potassium 4.2 mmol/L (3.5-5.1); Sodium 141 mmol/L (136-145)
[2023-07-12] MEDS: Lactated Ringers 1,000 ML 80 ML IV ×2 (13:07→18:52)
[2023-07-12] MEDS: Gabapentin 300 MG CAP PO ×2 (13:08→19:45)
--- NOTE | 2023-07-12 13:40 | W.ANESNERVE ---
Nerve Block Single Injection Procedure Date and Time Date Performed: 07/12/23 Procedure Start: 13:10 Location Where Procedure Performed Procedure Location: Day Surgery Unit Reason Performed: Postoperative Analgesia Requesting Provider: Aldair Marina Timeout Performed Timeout Performed: Yes Monitoring Used ECG, Blood Pressure and SpO2 Sterility Sterility: Hand Hygiene, Surgical Cap, Surgical Mask, Sterile Gloves and Chlorhexidine Sedation Given During Procedure Sedation Given (Indicate Dose Given): Versed IV Dose:: 2 mg Patient Mental Status Patient Mental Status: Sedate with meaningful communication Nerve Block 1st Nerve Block: Laterality: Left Block Type: Adductor Canal Ultrasound Image Saved?: Yes Needle / Catheter Used: 100mm SonoPlex II Local Anesthetic Bolus (Indicate Dose Given): Lidocaine used for local infiltration of skin and Bupivacaine 0.25% Dose:: 5 mL Additives (Indicate Dose Given): None Ultrasound: Sterile probe cover and gel used Nerve Stimulator: Supplement to Ultrasound use and No twitch or parasthesia noted < 0.5 mA Paresthesia: None Procedure Tolerated: No Complications Procedure Outcome: Successful Performed By: Nehemias Stephen 2nd Nerve Block: Laterality: Left Block Type: Other (anterior femoral cutaneous) Ultrasound Image Saved?: Yes Needle / Catheter Used: 100mm SonoPlex II Local Anesthetic Bolus (Indicate Dose Given): Bupivacaine 0.25% Dose:: 3 mL Additives (Indicate Dose Given): None Ultrasound: Not Used Nerve Stimulator: Supplement to Ultrasound use and No twitch or parasthesia noted < 0.5 mA Paresthesia: None Procedure Tolerated: No Complications Procedure Outcome: Successful Performed By: Nehemias Stephen
[2023-07-12] MEDS: TRANEXAMIC ACID/SOD. CHL. 1,000 MG/100 ML BAG 600 MG IVPB (13:50)
[2023-07-12] MEDS: ceFAZolin 2 GM/50 ML BAG IVPB (14:06)
[2023-07-12] MEDS: VANCOMYCIN/WATER (PEG) 1.25 GM/250 ML BAG IVPB (14:20)
[2023-07-12] MEDS: ePHEDrine 50 MG/ML VIAL 25 MG IM (16:28)
--- NOTE | 2023-07-12 16:29 | W.PM.OP ---
Date of service: 07/12/23 Time of Service: 14:00 Operative Note Operative Note DATE OF PROCEDURE: 07/12/23 PRE-OP DIAGNOSIS: Prosthetic Knee Infection - Left Knee PROCEDURE: Explantation of Left Knee Components (tiba and femur) Irrigation and Debridement and Synovectomy Antibiotic Spacer Placement - rods in femur and tibia canal with tibia poly and CR femur SURGEON: Aldair Marina PEDIATRIC IMMUNOLOGIST: Talon Trinidad ANESTHESIA TYPE: Spinal Refer to Anesthesia Record ESTIMATED BLOOD LOSS: 200 PATHOLOGY: other (Multiple fluid and tissue cultures were sent to the lab) Implants: Depuy CR femur, size 5 narrow DePuy 5 x 12 mm CR/RP polyethylene Indications: Gabbi is a 62-year-old female soon after year status post left knee replacement. She had some trauma to her left knee in November and since then has had some off-and-on pain. Over the last 3 to 4 weeks is acutely worse and such that she is having pain at all times, and limited weightbearing. Aspiration in the office revealed a cell count of 33,000 with greater than 80% PMNs and therefore infection was confirmed. Findings: There was gross purulence in the knee with aggressive synovitis. The peripheral bone underneath the tibial implant was grossly soft although the tibial component was not grossly loose. The bone underlying the femoral implant was necrotic with only minimal attachments to the surrounding bone. It was easily removed with a bone tamp. An osteotome was utilized to remove the tibia and it was removed with minimal difficulty. Aggressive debridement was performed including complete synovectomy. Antibiotic cement rods were placed into the tibial and femoral canals and a low friction spacer was placed with antibiotic cement. The cement contained 2 g of vancomycin and 2.4 g of tobramycin per batch of cement. Procedure Description: Gabbi was greeted in the preoperative holding area where the correct side was identified and marked. The consent was reviewed with the patient and signed. The history and physical was updated. All questions were answered. Preoperative medications were administered: Gabapentin 300mg. An adductor canal block was then administered by the anesthesia team in the PACU. Gabbi was taken back to the operating room. A spinal anesthestic was administered. The patient was placed into the supine position on the operating room table. Posts were placed for positioning during the procedure. All bony prominences were well padded. Prophylactic antibiotics in the form of Cefazolin and Vancomycin were administered after cultures were obtained. The left leg was then prepped with Chloraprep and draped in a standard fashion with impervious stockinette. A second prep with Chloraprep was performed prior to application of Iodine impregnated skin protection. A timeout to confirm correct identity, side and site, procedure, allergies, anesthesia, and medical concerns was performed. With the knee in some flexion, a midline incision was made overlying the knee utilizing the previous incision. Full thickness skin flaps were raised once the extensor mechanism was encountered. These were raised medially and laterally. Any bleeding was controlled with electrocautery. Medial and lateral skin flaps were raised to fully evaluate the extensor mechanism. There is no extensor mechanism defect. An arthrotomy was then performed in usual technique. Medially there is a chaidez of purulent, blood-tinged fluid. Cultures were taken of the fluid. There was gross purulent synovitis seen throughout the knee. Electrocautery was utilized to coagulate capsular blood vessels. A complete synovectomy was then performed utilizing 2 Allis and 2 Delfino clamps working laterally, superiorly, medially and then into the gutters. A medial subperiosteal peel was created and the knee was brought in flexion with the patella translated. Utilizing a straight osteotome the post of the RP plastic was cut and the polyethylene was removed. Once again there is purulent material seen posterior to the knee. Cultures of this posterior fluid were also taken. Synovial samples were also sent to the lab for culture. Debridement was performed of the gutters and in the posterior aspect of the knee. The periphery of the tibial component was released as was periphery of the femoral component for exposure of the bone?metal interface. It was obvious on the femur there is undermining of the bone at the edge of the femur. [place] elevator was utilized to check the interface and there is no solid attachment of bone to the implant except for around the PEG laterally and medially and the far anterior aspect of the femur. It was then determined that this poor interface and necrotic bone appearance indicated bone involvement and a loose implant and therefore the implants were removed. Utilizing flexible osteotomes I freed up the interface once again of the femur. I also worked on the tibia which had no significant attachment peripherally but did have some attachments centrally and posteriorly. Utilizing a bone tamp the femur came off without any resistance with minimal bone attachment except around the anterior portion of the notch. There was gross bone loss over the lateral aspect of the femur with necrotic appearing tissue in the canal as well as in the metaphysis of the femur. The tibia was more difficult to remove but was done so with minimal bone loss. Debridement was performed of the femur to remove any soft necrotic bone and necrotic tissue. I then utilized the reamers from the revision knee system to ream the canal is up to size 13 mm on the tibia and 14 mm on the femur. A pulse lavage was utilized with 3 L normal saline to fully irrigate the knee. During the irrigation process I stopped to perform any sharp debridement of necrotic. Tissue. A trial size 5 femur was placed along with a 12 mm polyethylene which closely recreated the flexion extension gaps. On the back table a single batch of medium discuss the cement was mixed along with 2 g of vancomycin powder and 2.4 g of tobramycin powder in addition to a few drops of methylene blue for later identification. This was mixed by hand without vacuum. It was then rolled over to Steinmann pins previously measured for canal spacers. This was rolled and checked for size and allowed to set up on the back table. While this was setting up, the periosteal and capsular tissues were then systematically injected with a periarticular cocktail consisting of 100cc 0.25% ropivacaine, epinephrine, clonidine, and ketorolac. The underside of the tibial polyethylene was penetrated with some indentations and holes for better cement integration. The canal spacers were placed into the canals with excellent fit. All the previous use instruments were then removed from the table and clean instruments were utilized. Betadine wash was placed into the knee allowed to sit for at least 3 minutes while 2 additional batches of cement were mixed along with 4 g of vancomycin powder and 4.8 g of tobramycin powder along with some methylene blue. Once this was thoroughly next the Betadine was washed out the knee and cement was applied to the surface of the tibia. The tibial component was inserted leaving 2 to 3 mm proud over the medial surface the based on initial trialing. Cement was then placed onto the femur with a bulk placed in the defect of the metaphysis. The femoral implant was in place. This had the tendency to want to roll into extension and was brought down into flexion. The knee was brought into extension at this point after excess cement was removed with a [place]. After 18 minutes the knee was brought through range of motion and easily and smoothly went through from 0 to 95 degrees. The wound was once again irrigated with surgery for Betadine solution followed by normal saline. The arthrotomy is closed with interrupted #1 Vicryl sutures followed by a #1 stratafix suture. Deep tissues were then reapproximated with 0 Vicryl and 2-0 Vicryl. The skin was closed with kody. This was reinforced with skin glue. To promote healing and minimize wound issues, a kacy vacuum-assisted dressing was applied. This was followed by a [id number] ASHLEY wrap. A CryoCuff was applied. Gabbi was transferred to the hospital bed without difficulty an suffering no apparent complication. Gabbi has a guarded prognosis. Lovenox 40 mg daily will be used for DVT prophylaxis while in the hospital. Cultures will be followed and antibiotics were tailored. She will need a PICC line for likely home-based antibiotic administration.
--- NOTE | 2023-07-12 16:57 | W.ANESPOSTOP ---
Postoperative Evaluation Date, Time and Location Date Performed: 07/12/23 Time Performed: 16:58 Patient Location: PACU Vital Signs Most Recent Imported Vital Signs: Most Recent Vital Signs Temp Pulse Resp BP Pulse Ox 36.8 C 76 20 96/62 L 98 07/12/23 16:33 07/12/23 16:50 07/12/23 16:50 07/12/23 16:50 07/12/23 16:50 Pain Score Most Recent Pain Score: Most Recent Pain Score Pain Level 4 07/12/23 16:50 Assessment Mental Status: Awake (Alert & Oriented to Patient Baseline) Airway and Respiratory Function: Patent airway with normal (patient baseline) respiratory exam Cardiovascular Function: Hemodynamically Stable Hydration Status: Adequately Hydrated Nausea & Vomiting: No Nausea or Vomiting Pain: Pain is tolerable per patient (wants food and PO pain med once on floor. ) Peripheral Nerve Block: Regional nerve block not resolved at time of post operative discharge
[2023-07-12] MEDS: oxyCODONE 5 MG TAB PO ×2 (17:21→20:56)
[2023-07-12] MEDS: Lactated Ringers 500 ML IV (18:03)
[2023-07-12] MEDS: Normal Saline Flush 10 ML SYR IVP ×3 (18:03→18:28)
[2023-07-12] MEDS: cefTRIAXone 2 GM/50 ML BAG IVPB (18:10)
[2023-07-12] MEDS: Tranexamic Acid 650 MG TAB 1300 MG PO (19:45)
[2023-07-12] MEDS: Acetaminophen 500 MG TAB 1000 MG PO (19:45)
[2023-07-12] MEDS: Budesonide/Formoterol 160/4.5 6 GM 60 PUFF INH IH (19:51)
--- NOTE | 2023-07-12 19:55 | RESPIRATORY ---
RT seen pt. for ELIAN daignosis. Pt. states she has stopped using her CPAP machine since last year due to weight gaining. Pt. also states she will be okay without it.
--- NOTE | 2023-07-12 21:18 | DI.RAD_ITS ---
Exam(s) XR KNEE LT 2V AP,LAT EXAM: XR KNEE LT 2V AP,LAT CLINICAL HISTORY: s/p TKA explant and spacer placement. TECHNIQUE: 2D digital imaging was performed. Three views. COMPARISON: MR MR LOWER JOINT LT WO from 07/10/2023 CR XR KNEE LT 3V AP,LAT,MATY from 07/11/2023 FINDINGS: BONES: The patellar and femoral components of the prosthesis remain in place. Eight intramedullary s pacer device is noted in the distal femoral shaft as well as proximal tibial shaft. The tibial compo nent of the prosthesis has been removed.. No bony destructive lesion is seen. JOINTS: The knee is normally aligned. SOFT TISSUE: Anterior skin kody. Air within the joint space and anterior soft tissues. IMPRESSION: Per surgical changes. DATA REPOSITORY: RADIATION DOSE DELIVERED:
[2023-07-12] MEDS: Lactated Ringers 500 ML 1000 ML IV (21:40)
--- NOTE | 2023-07-12 22:07 | DI.VRAD_ITS ---
PROCEDURE INFORMATION: Exam: XR Left Knee Exam date and time: 07/12/2023 9:13 PM Age: 62 years old Clinical indication: Device placement; Joint replacement hardware; Prior surgery; Surgery date: Post-operative (0-2 days); Patient HX: S/P tka explant and spacer placement TECHNIQUE: Imaging protocol: Radiologic exam of the left knee. Views: 1 or 2 views. COMPARISON: CR XR KNEE LT 3V AP,LAT,MATY 07/11/2023 11:17 AM FINDINGS: Bones/joints: The femoral component of the arthroplasty is in position. The tibial component has been removed and there is a spacer device in place. There is no evidence of fracture. No lytic or destructive bone lesions are evident. There is air within the joint consistent with recent surgery. Soft tissues: Mild soft tissue swelling and anterior midline skin closure kody consistent with recent surgery. IMPRESSION: 1. Postoperative changes. 2. Removal of proximal tibial plateau prosthetic component with spacer placement. 3. No acute skeletal change. 4. Air within the joint consistent with recent surgery. Dictated and Authenticated by: Miguelito Duque MD. Ordering:JJ Quinteros MD
[2023-07-13] VITALS (10 sets, daily range): BP systolic 111–142; BP diastolic 49–59; PULSE 72–89; RESP 16–20; TEMP 37.1–38.9; O2SAT 93–97
[2023-07-13] MEDS: oxyCODONE 5 MG TAB PO ×6 (02:53→20:31)
[2023-07-13] MEDS: VANCOMYCIN/WATER (PEG) 750 MG/150 ML BAG 150 MG IVPB ×2 (03:31→14:03)
[2023-07-13] MEDS: Albuterol HFA 8 GM 60 PUFF INH IH (03:54)
[2023-07-13] MEDS: Ketorolac 15 MG/ML VIAL IVP ×3 (04:31→19:59)
[2023-07-13 06:42] LABS: HCT 25.4 % (36.0-46.0); HGB 7.7 g/dL (11.2-15.7); MCH 25.2 pg (27.0-33.0); MCHC 30.3 % (32.0-36.0); MCV 83 fL (80-95); MPV 8.9 fL (8.0-11.0); Platelet Count 330 10^3/uL (130-400); RBC 3.05 10^6/uL (3.93-5.22); RDW 15.7 % (11.7-14.6); RDW-SD 47.5 fL; WBC 10.01 10^3/uL (4.4-10.8)
[2023-07-13 07:00] LABS: Anion Gap 8.3 mmol/L (3-11); BUN 18 mg/dL (7-18); C-Reactive Protein 10.63 mg/dL (<or=0.5); CO2 26.7 mmol/L (21.0-32.0); Calcium 8.2 mg/dL (8.5-10.1); Chloride 102 mmol/L (98-107); Estimated GFR 64.49 (mL/min/1.73m2); Glucose 131 mg/dL (74-106); Potassium 4.6 mmol/L (3.5-5.1); Sodium 137 mmol/L (136-145)
[2023-07-13] MEDS: Pantoprazole 40 MG TABCR PO (07:06)
[2023-07-13] MEDS: Acetaminophen 500 MG TAB 1000 MG PO ×3 (07:41→19:59)
--- NOTE | 2023-07-13 07:41 | PDOC.CMIN ---
Date of service: 07/13/23 Time of Service: 07:41 Care Management Initial Assmt Initial Assessment REASON FOR HOSPITALIZATION:: Prosthetic Knee Infection PREVIOUS FUNCTIONAL STATUS/SOCIAL/FAMILY SUPPORTS:: Gabbi lives in [place] with her boyfriend Miguelito. Her daughter lives down the road. Her sister and best friend live locally as well. Gabbi drives and is independent with her ADL's/IADL's at baseline. 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 CURRENT FUNCTIONAL STATUS:: Gabbi is sitting up in bed eating her breakfast when CM met with her. She is drowsy but able to engage in conversation. Per Gabbi, she is unable to get some of her chronic medications locally. For those she uses [facility] because they take Good RX with no out of pocket expense. She receives Social Security survivor benefits which she reports will be helpful especially now that she is unable to work as a caregiver. Gabbi denies any acute/current community needs. CM provided Gabbi with a [facility] brochure, in the event she needs support following her discharge. Pt is familiar with their services. ADVANCE DIRECTIVES:: None on file at [facility] Has patient been provided with info about the portal/API?: Yes Did the patient sign up for the portal?: Yes (Prior to admission) CODE STATUS:: Full Code INSURANCE COVERAGE / FINANCIAL ISSUES:: Medicaid CURRENT HOME/COMMUNITY SERVICES/EQUIPMENT:: None PRIMARY CARE PHYSICIAN:: None currently, she has seen Amara Joiner at [facility]. POTENTIAL DISCHARGE NEEDS:: Discharge plan of care, follow up appointments PATIENT/FAMILY EDUCATION NEEDS:: Review discharge instructions, limitations, medications and plan to follow up with Ortho and PCP ANTICIPATED BARRIERS TO DISCHARGE:: None identified TRANSPORTATION:: Via private vehicle with Miguelito PLAN:: Anticipate Gabbi will discharge home when medically ready and follow up with community providers. She will be driven by her partner. CM will support evaluations for further needs. PFSH All Active Problems (Updated 07/12/23 @ 13:09 by Aldair Marina MD) Infection of prosthetic left knee joint (Acute) Painful total knee replacement, left (Acute) Former cigarette smoker (Acute) Cough (Acute) History of total left knee replacement (Acute 03/14/21) DOS 03/14/21 COPD (chronic obstructive pulmonary disease) (Chronic) Menopause present (Acute) Polyp of cervix (Acute) Localized edema (Acute) Cholelithiasis without obstruction (Acute) Allergic rhinitis (Acute) Migraine without aura (Acute) Obstructive sleep apnea syndrome in adult (Acute) Depressive disorder (Chronic) Generalized anxiety disorder (Acute) Anemia (Chronic) pt denies history of anemia Intestinal disaccharidase deficiency (Acute) Medical History History of obstructive sleep apnea pt. reports resolved with wt. loss History of asthma Acute bronchospasm COPD (chronic obstructive pulmonary disease) Acute exacerbation of chronic obstructive airways disease Pulmonary hypertension Pt. states she had this worked up and no longer is an issue Severe obesity Surgical History History of x2 Status post operation on nasal sinus ~2003, pt. reports two procedures S/P tubal ligation 03/25/1988 S/P cholecystectomy 09/23/2015 S/P laparoscopic sleeve gastrectomy 12/04/2016 Family History Mother Heart disease Hypertension Sister Heart disease age 61 Hypertension Father Emphysema, unspecified Social History Smoking/Tobacco Use Status: Former Tobacco Use Quit Date: 08/29/19 Pack-years: 40 Second Hand Exposure: Yes Smoking risk assessment performed?: Yes Alcohol Intake: current Alcohol Intake frequency: a few times a month Alcohol type: wine Details: 1 wine weekly Drug use: Never Substance use type: does not use Details: alcohol: t-2, glass of wine Housing: house Current gender identity: female Do you feel safe at home: Yes Do you feel safe in your relationship?: Yes SDOH(Care Management) Screening Will the Patient Participate in the Screening?: Yes Do you worry about having a steady place to live?: choose not to answer In the past 12 months, have you had to go without electric, gas, oil or water in your home?: choose not to answer Have you or anyone in your house had to go without enough food to eat?: choose not to answer Has lack of transportation kept you from medical appointments or from doing things needed for daily living?: choose not to answer Has anyone in your support network made you feel unsafe for any reason?: choose not to answer
[2023-07-13] MEDS: Multivitamin w/Minerals TAB 1 TAB PO ×2 (07:42→20:02)
[2023-07-13] MEDS: Cholecalciferol (Vitamin D3) 1,000 UNIT TAB 2000 UNITS PO (07:42)
[2023-07-13] MEDS: Roflumilast 500 MCG TAB PO (07:42)
[2023-07-13] MEDS: Budesonide/Formoterol 160/4.5 6 GM 60 PUFF INH IH ×2 (07:55→19:43)
[2023-07-13] MEDS: Tiotropium Bromide-Respimat 10 PUFF INH 2 PUFF IH (07:55)
--- NOTE | 2023-07-13 09:19 | PT.INIE ---
Date of service: 07/13/23 Time of Service: 08:45 PT Notes Visit Reasons: Prosthetic Left Knee Infection Inpatient Physical Therapy Evaluation Date: July 13, 2023 Referring Doctor: Aldair Marina PT Orders: PT CONSULT: Status post left knee total knee arthroplasty washout Precautions: Standard, weightbearing as tolerated left LE, knee ROM 0-90 degrees, functional mobility only Patient Profile/Admitting Diagnosis: Gabbi is a 62-year-old female s/p left knee TKA washout due to infection. PMHX: (Updated 07/12/23 @ 13:09 by Aldair Marina MD) Infection of prosthetic left knee joint (Acute) Painful total knee replacement, left (Acute) Former cigarette smoker (Acute) Cough (Acute) History of total left knee replacement (Acute 03/14/21) DOS 03/14/21COPD (chronic obstructive pulmonary disease) (Chronic) Menopause present (Acute) Polyp of cervix (Acute) Localized edema (Acute) Cholelithiasis without obstruction (Acute) Allergic rhinitis (Acute) Migraine without aura (Acute) Obstructive sleep apnea syndrome in adult (Acute) Depressive disorder (Chronic) Generalized anxiety disorder (Acute) Anemia (Chronic) pt denies history of anemiaIntestinal disaccharidase deficiency (Acute) Medical History History of obstructive sleep apnea pt. reports resolved with wt. lossHistory of asthma Acute bronchospasm COPD (chronic obstructive pulmonary disease) Acute exacerbation of chronic obstructive airways disease Pulmonary hypertension Pt. states she had this worked up and no longer is an issueSevere obesity Surgical History History of [id number] post operation on nasal sinus ~2003, pt. reports two proceduresS/P tubal ligation 03/25/1988S/P cholecystectomy 09/23/2015S/P laparoscopic sleeve gastrectomy 12/04/2016 Social History/Home Situation: Lives in a private home with her boyfriend. Has 2 steps to enter. Once in home in on one level. Prior to admission was independent with all ADL's Current Functional Limitations: WBAT L LE, decreased activity tolerance, decreased mobility Equipment Owned/DME: [facility] Subjective: Gabbi notes that she is very tired this morning. Needs to get up to go to the bathroom so is agreeable to PT consult this morning. Objective: General Observation: IV access, kacy vacuum-assisted dressing was applied, ASHLEY wraps to left knee. Cryocuff to left knee. TEDs on right leg Mental Status: Alert and oriented x4 Pain: Minimal to no pain at rest. Has been up to commode with nursing WBAT L LE 3-4/10 on VAS Vital Signs: Monitored via nursing ROM: Right Upper Extremity: Demonstrates WNL AROM R UE Left Upper Extremity: Demonstrates WNL AROM L UE Right Lower Extremity: Demonstrates WNL AROM R LE Left Lower Extremity: Demonstrates 90 degrees of knee flexion, 5 degrees of extension, good ankle mobility Strength: Right Upper Extremity: Demonstrates good functional strength R UE Left Upper Extremity: Demonstrates good functional strength L UE Right Lower Extremity: Demonstrates good functional strength R LE Left Lower Extremity: Hip flexion 3/5, unable to complete A SLR L LE Bed Mobility/Transfers: Supine-sit: Suraj x1 of L LE Sit-stand: SBA with FWW Stand-Sit: SBA Bed-commode: CGA with FWW WBAT L LE Gait: FWW, WBAT L LE bed to commode. Balance: Static Sitting: Normal Dynamic Sitting: Normal Static Standing: Fair Dynamic Standing: Fair Special Tests: Mobility Limitations Standardized Measure [facility] AM-PAC 6 clicks Basic Mobility Inpatient Short Form: Raw Score: 18 CMS Score: 47% Informed Consent/Education: Patient instructed in purpose of PT consult and plan of care. Assessment: Gabbi is a 62 year old female s/p L TKA washout due to infection. Patient requires the use of a front wheeled walker for all mobility ADL performance in order to maximize independence and reduce fall risk. Patient presents with clinical signs and symptoms consistent with current/admitting diagnoses that have resulted to mobility limitations, gait instability, generalized weakness, and impairment of motor control as demonstrated by the following impairment level findings: 1. Decreased strength to left knee major muscle groups 2. Impaired standing balance 3. Limitation of joint range of motion in left knee 4. Altered gait and balance Impairments are contributing to the following functional limitations: 1. Inability to safely ambulate without assistive device 2. Increase completion time for mobility ADL performance 3. Increased fall risk Patient is assessed as a 22316 moderate complexity based on the following: History: 62-year-old female with impairment level findings, functional limitations, and past medical history as indicated above Examination: Demonstrable impairment in strength, balance, and mobility level with underlying impairments and functional limitations as documented above Presentation: Evolving Decision Makin moderate complexity Goals: Goals X1 week 1. Supine-Sit Independent 2. Sit-Supine Independent 3. Sit-Stand Independent with FWW 4. Stand-Sit Independent 5. Bed-Chair Independent with FWW 6. Chair-Bed Independent with FWW 7. Gait WBAT FWW 100ft or greater 8. Stairs up/down 2-3 steps with use of railing 9. Independent with home exercise program Plan of Care/Treatment Plan: 1-2x/day, 7 days/week x 1 week. Plan of care has been reviewed with the [employer]ER providing the service under Physical Therapy direction. Initiate Physical Therapy intervention for strengthening, bed mobility, transfers, gait, stairs, balance training, use of assistive device. DISCHARGE RECOMMENDATIONS: Home with Home Health Services or Home with outpatient PT TREATMENT CODE/TIME: [id number] 35 minutes IE 8:45-9:20 KRISTIAN Jerez [facility] Please sign an return this page within 30 days if you agree with the above POC. Thank you! Physician Signature Date [facility] Disclaimer: This note was created using [email or web address] voice recognition software. It was reviewed for major content. However, there may be multiple small discrepancies and errors due to the voice recognition aspects of the software.
--- NOTE | 2023-07-13 09:23 | PGE_ITS ---
Date of Service Date of service: 07/13/23 Time of Service: 09:24 Assessment and Plan Assessment and plan (1) Infection of prosthetic left knee joint: Status: Acute Assessment and plan: Gabbi is a 62-year-old female postop day #1 status post explantation of left knee replacement due to overwhelming infection including involvement of the bone, particularly the distal femur. She has an antibiotic spacer in place with antibiotic related intramedullary rods and high-dose antibiotic cement with a low friction spacer. She has been running some persistent fevers between 38.1 a nd 30.9 which is not unexpected given the significant debridement performed yesterday and the load of antibiotics. She does have sensitivities to other antibiotics although what she is currently taken she either has not had or has tolerated in the past. However, it is possible developed a drug fever although is hard to know initially and she does need the antibiotics to treat her ongoing infection. I would recommend we continue with Tylenol and ketorolac to manage her fever and pain. Oxycodone for breakthrough pain relief. I will continue to follow the cultures which currently do not have any growth and customize and tailor antibiotics as needed. I would recommend a PICC line placement for likely home antibiotics. She is weightbearing as tolerated although this is not necessarily made to be aggressive with any rehabilitation or therapy. She may ambulate with assistive devices as tolerated. I recommend keeping it elevated is much as possible. Jd vacuum assisted dressing is in place, alert if any error lights are blinking. Continue with vancomycin, dosed by pharmacy, and ceftriaxone 2 g IV daily. Continue to follow daily labs and C-reactive protein. Qualifiers: Encounter type: sequela Qualified Code(s): T84.54XS - Infection and inflammatory reaction due to internal left knee prosthesis, sequela (2) Postoperative anemia due to acute blood loss: Status: Acute Assessment and plan: Acute anemia from surgery and likely postoperative blood loss from the aggressive debridement performed. She is dropped approximate 3 points from 10.6-7.7. Her vital signs are currently stable and therefore we can continue to follow this. However, is likely she may drift a little bit lower and therefore may need a blood transfusion. I will go ahead and order a type and screen we will check a blood level at 2:00 determine if we need to transfuse. Subjective Subjective Interval history since last seen: Gabbi reports being somewhat tired. She did run fever most of the night between 38.1 and 38.9. She has been receiving antibiotics as well as acetaminophen and ketorolac. She has had to take the oxycodone for knee pain but does find it worse but just makes her groggy and out of it. She has gotten up to the commode and place weight on the left knee without any acute issues. Hemoglobin did drop down to 7.7 this morning although vital signs are much stable as she was somewhat hypotensive yesterday but has been running normotensive today. Exam Narrative Exam Narrative: Sitting up in the hospital bed. Left lower extremity dressings clean dry and intact. Alert and orient x 3. No acute distress. She is able to actively flex and extend the foot. She also has active knee extension although reluctant to do so. Objective Last Vital Signs Temp 38.9 C H 07/13/23 07:41 Pulse 89 07/13/23 07:11 Resp 18 07/13/23 07:11 BP 115/51 L 07/13/23 07:11 Pulse Ox 94 07/13/23 07:11 Laboratory Results - last 24 hr 07/12/23 07/13/23 12:38 06:20 WBC 9.16 10.01 RBC 4.26 3.05 L Hgb 10.4 L 7.7 L D Hct 35.1 L 25.4 L MCV 82 83 MCH 24.4 L 25.2 L MCHC 29.6 L 30.3 L RDW 15.1 H 15.7 H Plt Count 420 H 330 MPV 8.7 8.9 Sodium 141 137 Potassium 4.2 4.6 Chloride 104 102 Carbon Dioxide 28.5 26.7 Anion Gap 8.5 8.3 BUN 15 18 Creatinine 0.9 1.0 Est GFR (CKD-EPI 2020) 73.19 64.49 Glucose 101 131 H Calcium 9.4 8.2 L C-Reactive Protein 10.63 H Time Spent with Patient Time Spent with Patient: >50 minutes Time was spent: preparing to see the patient(eg.review tests), obtaining and/or reviewing separately otained hiistory, indepentently interpreting results, counseling the patient and care coordination
[2023-07-13] MEDS: Normal Saline Flush 10 ML SYR IVP (14:04)
[2023-07-13 14:27] LABS: HCT 25.9 % (36.0-46.0); HGB 7.6 g/dL (11.2-15.7)
[2023-07-13] MEDS: cefTRIAXone 2 GM/50 ML BAG IVPB (17:26)
[2023-07-13] MEDS: diphenhydrAMINE 25 MG CAP PO (20:02)
[2023-07-13] MEDS: Gabapentin 300 MG CAP PO (20:02)
[2023-07-14] VITALS (12 sets, daily range): BP systolic 119–152; BP diastolic 59–77; PULSE 79–92; RESP 16–18; TEMP 37.1–38.7; O2SAT 90–100
[2023-07-14] MEDS: oxyCODONE 5 MG TAB PO ×6 (00:01→17:44)
[2023-07-14] MEDS: VANCOMYCIN/WATER (PEG) 750 MG/150 ML BAG 150 MG IVPB ×2 (02:07→14:51)
[2023-07-14] MEDS: Normal Saline Flush 10 ML SYR IVP ×3 (02:08→11:19)
[2023-07-14] MEDS: Ketorolac 15 MG/ML VIAL IVP ×3 (03:37→19:56)
[2023-07-14] MEDS: diphenhydrAMINE 25 MG CAP PO ×2 (03:46→21:02)
[2023-07-14 06:48] LABS: HCT 23.7 % (36.0-46.0); HGB 7.2 g/dL (11.2-15.7); MCH 25.3 pg (27.0-33.0); MCHC 30.4 % (32.0-36.0); MCV 83 fL (80-95); MPV 9.3 fL (8.0-11.0); Platelet Count 294 10^3/uL (130-400); RBC 2.85 10^6/uL (3.93-5.22); RDW 15.6 % (11.7-14.6); RDW-SD 47.7 fL; WBC 9.34 10^3/uL (4.4-10.8)
[2023-07-14 07:10] LABS: Anion Gap 9.6 mmol/L (3-11); BUN 11 mg/dL (7-18); C-Reactive Protein 17.62 mg/dL (<or=0.5); CO2 26.4 mmol/L (21.0-32.0); CREATININE 0.8 mg/dL (0.55-1.02); Calcium 8.4 mg/dL (8.5-10.1); Chloride 102 mmol/L (98-107); Glucose 122 mg/dL (74-106); Potassium 4.4 mmol/L (3.5-5.1); Sodium 138 mmol/L (136-145)
[2023-07-14] MEDS: Acetaminophen 500 MG TAB 1000 MG PO ×3 (07:23→19:59)
[2023-07-14] MEDS: Multivitamin w/Minerals TAB 1 TAB PO ×2 (07:23→20:00)
[2023-07-14] MEDS: Roflumilast 500 MCG TAB PO (07:24)
[2023-07-14] MEDS: Cholecalciferol (Vitamin D3) 1,000 UNIT TAB 2000 UNITS PO (07:24)
[2023-07-14] MEDS: Pantoprazole 40 MG TABCR PO (07:24)
[2023-07-14] MEDS: Budesonide/Formoterol 160/4.5 6 GM 60 PUFF INH IH ×2 (07:50→19:48)
[2023-07-14] MEDS: Tiotropium Bromide-Respimat 10 PUFF INH 2 PUFF IH (07:50)
--- NOTE | 2023-07-14 11:33 | PTTR_ITS ---
Date of service: 07/14/23 Time of Service: 09:10 PT Notes Visit Reasons: Prosthetic Left Knee Infection Inpatient Physical Therapy Treatment Note [facility] Date: 07/14/2023 PRECAUTIONS: Standard, weightbearing as tolerated left LE, knee ROM 0-90 degrees, functional mobility only SUBJECTIVE: Stated she is doing a little better than yesterday. Very weak, but wants to get up to move a little. OBJECTIVE: ? PAIN: 0-1 out of 10 when I arrived to room, stated she had just taken pain meds earlier. Pain level increased slightly with ambulation. [place] better once back in bed with leg resting. Therapeutic Activities ([id number][]): Direct one-on-one instruction in dynamic activities to improve functional performance. ? BED MOBILITY/TRANSFERS? Rolling L/R: Able to roll to the left and right independently Supine-sit: Min assist to lower leg to floor from bed ? Sit-supine: Min assist to help lift leg up on to bed, was issued a leg vice president digital strategist device to utilize in the future. Indicated she has used one of these devices in the past. ? Sit-stand: CGA ? Stand-sit: CGA? Bed-Chair: 5ft x 2, with FWW and CGA ? Provided skilled cues and instruction on performance and technique thr oughout.? ? GAIT? Assistive Device: FWW? Weight bearing: WBAT on the left Assist: CGA ? Distance:? 20ft, walking within room? Deviation: Placing little weight on left LE due to complaints of sensitiv ity. Slow, steady gait pattern.? ASSESSMENT:? Tolerated transfers and ambulation well. Expressed complaints of frustration with having to go through more surgery and her summer plans having to be altered PLAN: Continue to focus on functional mobility as patient is able to tolerate. TREATMENT CODE/TIME: 99479 x 2, 9:10 to 9:35 ( 25 minutes)
[2023-07-14] MEDS: Albuterol HFA 8 GM 60 PUFF INH IH (11:46)
--- NOTE | 2023-07-14 13:44 | W.PM.PROGNOT ---
Date of Service Date of service: 07/14/23 Time of Service: 12:30 Assessment and Plan Assessment and plan (1) Infection of prosthetic left knee joint: Status: Acute Assessment and plan: Awaiting cultures. CRP increased to 17 which will hopefully be the peak and should start trending down. Continue Vancomycin and Ceftriaxone although likely to only need Ceftriaxone which should have almost ubiquitous coverage of gram positive anaerobes. WBAT with assistive devices although no need to push ambulation. Elevate as much as possible. Cryocuff for comfort. Continue Oxycodone, Tylenol, Ketorolac for pain relief. PICC line to be placed soon for long-duration IV antibiotics. Qualifiers: Encounter type: sequela Qualified Code(s): T84.54XS - Infection and inflammatory reaction due to internal left knee prosthesis, sequela (2) Postoperative anemia due to acute blood loss: Status: Acute Assessment and plan: Hgb continued to drop to 7.2. I will transfuse one unit. Subjective Subjective Interval history since last seen: Gabbi is having pain today. She feels a good bit of pain and swelling in the left knee although has been able to mobilize to the bathroom. She had a bowel movement. She has had some fevers intermittently, nothing over 38.7. Voiding spontaneously. Initial knee aspirate is growing gram positive anaerobic cocci. Exam Narrative Exam Narrative: Resting in the bed. Appears uncomfortable and tired. AAOx3. LLE dressing c/d/i. ASHLEY wrap removed. Notable swelling and effusion to the left knee. Able to weakly SLR. +ADF/APF/EHL/FHL. SILT DP/SP/Tib. Objective Last Vital Signs Temp 37.3 C 07/14/23 13:32 Pulse 92 H 07/14/23 13:32 Resp 18 07/14/23 13:32 BP 132/59 L 07/14/23 13:32 Pulse Ox 96 07/14/23 13:32 Laboratory Results - last 24 hr 07/13/23 07/13/23 07/14/23 12:37 14:20 06:20 WBC 9.34 RBC 2.85 L Hgb 7.6 L 7.2 L Hct 25.9 L 23.7 L MCV 83 MCH 25.3 L MCHC 30.4 L RDW 15.6 H Plt Count 294 MPV 9.3 Sodium 138 Potassium 4.4 Chloride 102 Carbon Dioxide 26.4 Anion Gap 9.6 BUN 11 Creatinine 0.8 Est GFR (CKD-EPI 2020) 84.30 Glucose 122 H Calcium 8.4 L C-Reactive Protein 17.62 H Patient ABO/Rh O Positive Antibody Screen NEGATIVE Crossmatch See Detail Time Spent with Patient Time Spent with Patient: 25-34 minutes Time was spent: preparing to see the patient(eg.review tests), obtaining and/or reviewing separately otained hiistory, indepentently interpreting results and counseling the patient
[2023-07-14 14:44] LABS: Vancomycin, Trough 11.7 ug/mL (10.0-20.0)
[2023-07-14] MEDS: cefTRIAXone 2 GM/50 ML BAG IVPB (17:32)
[2023-07-14] MEDS: Gabapentin 300 MG CAP PO (19:59)
[2023-07-15] MEDS: Normal Saline Flush 10 ML SYR IVP ×5 (03:01→14:33)
[2023-07-15] MEDS: Ketorolac 15 MG/ML VIAL IVP ×2 (03:01→12:54)
[2023-07-15] MEDS: VANCOMYCIN/WATER (PEG) 1 GM/200 ML BAG IVPB (03:07)
[2023-07-15] MEDS: Albuterol HFA 8 GM 60 PUFF INH IH (03:13)
[2023-07-15 03:19] VITALS: BP 144/65; PULSE 82; RESP 18; TEMP 37.3; O2SAT 94
[2023-07-15 06:29] LABS: HCT 27.4 % (36.0-46.0); HGB 8.1 g/dL (11.2-15.7); MCH 24.8 pg (27.0-33.0); MCHC 29.6 % (32.0-36.0); MCV 84 fL (80-95); MPV 9.1 fL (8.0-11.0); Platelet Count 291 10^3/uL (130-400); RBC 3.26 10^6/uL (3.93-5.22); RDW 15.6 % (11.7-14.6); RDW-SD 47.6 fL; WBC 8.17 10^3/uL (4.4-10.8)
[2023-07-15] MEDS: oxyCODONE 5 MG TAB PO (06:42)
[2023-07-15 06:44] LABS: Anion Gap 10.2 mmol/L (3-11); BUN 12 mg/dL (7-18); C-Reactive Protein 16.71 mg/dL (<or=0.5); CO2 26.8 mmol/L (21.0-32.0); CREATININE 0.8 mg/dL (0.55-1.02); Calcium 8.5 mg/dL (8.5-10.1); Chloride 103 mmol/L (98-107); Glucose 115 mg/dL (74-106); Potassium 4.5 mmol/L (3.5-5.1); Sodium 140 mmol/L (136-145)
[2023-07-15] MEDS: Multivitamin w/Minerals TAB 1 TAB PO (08:07)
[2023-07-15] MEDS: Pantoprazole 40 MG TABCR PO (08:08)
[2023-07-15] MEDS: Aspirin E.C. 81 MG TABEC PO (08:08)
[2023-07-15] MEDS: Roflumilast 500 MCG TAB PO (08:09)
[2023-07-15] MEDS: Acetaminophen 500 MG TAB 1000 MG PO ×2 (08:09→14:32)
[2023-07-15] MEDS: Cholecalciferol (Vitamin D3) 1,000 UNIT TAB 2000 UNITS PO (08:09)
[2023-07-15 08:22] VITALS: BP 124/60; PULSE 90; RESP 20; TEMP 37.1; O2SAT 91
[2023-07-15] MEDS: Budesonide/Formoterol 160/4.5 6 GM 60 PUFF INH IH (08:32)
[2023-07-15] MEDS: Tiotropium Bromide-Respimat 10 PUFF INH 2 PUFF IH (08:32)
--- NOTE | 2023-07-15 09:32 | PT.INTREAT ---
PT Notes Visit Reasons: Prosthetic Left Knee Infection Inpatient Physical Therapy Treatment Note [facility] Date: 07/15/2023 PRECAUTIONS: Standard. Fall risk. WBAT on the L LE with AD. SUBJECTIVE: Was in a lot of pain. Received 2 mg of Oxycodone ealier this morning. Feels a little loopy. Tired but agreeable to demonstrate transfer to commode as she needed to void urine. Denied chest pain, headache, and lightheadedness. Aware that she only needs to walk at most 30 feet to use toilet or ado any essential transfers. Declined being seen by PT in the afternoon, stating that she already walked to and from the bathroom. Hoping to go home today if her antibiotics can be delivered to her home for tomorrow's PICC administration. OBJECTIVE: Pain: Pain at 2-3/10 in the L knee at rest and with weight bearing. ? BED MOBILITY/TRANSFERS: Minimal verbal cues provided to ensure that proper walker positioning prior to patient standing up/sitting down, posture, and limb advancement ? Supine-sit: stand by ana lilia, pulls on L sock to assist L LE onto edge of bed, adds that this is a better technique than using a leg courtesy clerk? Sit-supine: stand by assist ? Sit-stand: stand by assist?with FWW ? Stand-sit: stand by assist?with FWW ? Bed-Chair: stand by assist?with FWW ? GAIT? ? ? Minimal verbal cues provided to ensure adequate weight bearing on B LE as well as well as proper AD management to minimize pain report. ? Assistive Device: FWW? Weight bearing: WBAT on the left Assist: stand by assist ? Distance:? 15 feet + 15 feet ? Deviation: Mild antalgic gait; step-to gait pattern; decreased rudolph ? ASSESSMENT:? More able to tolerate weight bearing on the L LE this morning, although reported a little loopy from medication. Appeared and felt more stable with walking. Requires use of bedside commode specially for nighttime toileting to minimize fall risk from varying pain levels. Also fitted patient with FWW to maximize stability and safety of walking. PLAN: Progress and increase stability of short distance ambulation up to 30 feet using FWW to simulate distance from bedroom to bathroom inside patient's mobile home. Facilitate pain control and reduction with graduated B LE strengthening. TREATMENT CODE/TIME: 58352 x 24 minutes for 1 unit (9:32-9:56). No charge for afternoon visit from 14:01-14:05.
--- NOTE | 2023-07-15 12:38 | W.PM.PROGNOT ---
Date of Service Date of service: 07/15/23 Time of Service: 07:15 Assessment and Plan Assessment and plan (1) Postoperative anemia due to acute blood loss: Status: Acute Assessment and plan: Hemoglobin improved appropriately to 8.1. She her vital signs are stable and she is without symptoms. Continue to follow. (2) Infection of prosthetic left knee joint: Status: Acute Assessment and plan: Status post explantation of components with antibiotic spacer placement. Awaiting PICC line. Ceftriaxone 2 g daily should suffice as the antibiotic of choice to cover the gram-positive anaerobes as well as what seems like Streptococcus. Weightbearing as tolerated with assistive devices. I will work on home antibiotics. Once we have confirmation of delivery of the IV supplies and antibiotics, she may discharge to home. Qualifiers: Encounter type: sequela Qualified Code(s): T84.54XS - Infection and inflammatory reaction due to internal left knee prosthesis, sequela Subjective Subjective Interval history since last seen: Gabbi reports to overall be feeling okay. No acute changes. No fevers no chills overnight. Pain has been manageable and she has been able to ambulate on her own with medications. She does not report to be sleeping very well. Cultures still are only growing anaerobic gram-positive cocci it with potentially Streptococcus in 1 other culture. Exam Narrative Exam Narrative: Resting in the bed. No acute distress. Alert and x 3. Dressing has minimal sanguinous discharge. Notable swelling about the left knee. Objective Last Vital Signs Temp 37.1 C 07/15/23 08:22 Pulse 90 07/15/23 08:22 Resp 20 07/15/23 08:22 BP 124/60 07/15/23 08:22 Pulse Ox 91 L 07/15/23 08:22 Laboratory Results - last 24 hr 07/13/23 07/14/23 07/15/23 12:37 13:40 06:06 WBC 8.17 RBC 3.26 L Hgb 8.1 L Hct 27.4 L MCV 84 MCH 24.8 L MCHC 29.6 L RDW 15.6 H Plt Count 291 MPV 9.1 Sodium 140 Potassium 4.5 Chloride 103 Carbon Dioxide 26.8 Anion Gap 10.2 BUN 12 Creatinine 0.8 Est GFR (CKD-EPI 2020) 84.30 Glucose 115 H Calcium 8.5 C-Reactive Protein 16.71 H Vancomycin Trough 11.7 Crossmatch See Detail Time Spent with Patient Time Spent with Patient: 25-34 minutes Time was spent: preparing to see the patient(eg.review tests), indepentently interpreting results and counseling the patient
--- NOTE | 2023-07-15 13:00 | DI.RAD_ITS ---
Exam(s) XR PORTABLE CHEST AP POST LINE EXAM: XR PORTABLE CHEST AP POST LINE CLINICAL HISTORY: check line placement on picc line. TECHNIQUE: 2D digital imaging was performed of the chest. Two images were obtained. AP views were obtained. COMPARISON: No exams were available for comparison FINDINGS: The 1st AP images dated 07/15/2023 at 12:50 p.m.. It shows the tip of the left PICC line directed cep halad into the jugular vein. The tip is off the edge of the film. The catheter needs to be repositi oned. MEDIASTINUM: Normal. HEART: Normal. PULMONARY VASCULATURE: Normal. LUNGS: Clear. PLEURAL SPACE: No pleural effusion or pneumothorax. BONE:Within normal limits for the patient's age. OTHER FINDINGS:Normal. The 2nd chest x-ray examination is dated 07/15/2023 at 12:51 p.m.. The catheter has been repositioned . The catheter is tip is seen in the superior vena cava but is coiled in the vein and is directed ce phalad. The catheter needs to be repositioned. IMPRESSION: Abnormal positioning of the left PICC line as described above. The findings were discussed with the primary care team on the date of the examination. It was recommended that the catheter be reposition ed and a repeat chest x-ray be performed. DATA REPOSITORY: RADIATION DOSE DELIVERED:
--- NOTE | 2023-07-15 13:18 | DI.RAD_ITS ---
Exam(s) XR PORTABLE CHEST AP POST LINE EXAM: XR PORTABLE CHEST AP POST LINE CLINICAL HISTORY: POST LINE PLACEMENT TECHNIQUE: 2D digital imaging was performed of the chest. One image was obtained. An AP view was ob tained. COMPARISON: CR XR PORTABLE CHEST AP POST LINE from 07/15/2023 FINDINGS: The catheter has been repositioned. The tip now lies in the superior vena cava in good position. MEDIASTINUM: Normal. HEART: Normal. PULMONARY VASCULATURE: Normal. LUNGS: Clear. PLEURAL SPACE: No pleural effusion or pneumothorax. BONE:Within normal limits for the patient's age. OTHER FINDINGS:Normal. IMPRESSION: The left PICC line has been repositioned. The tip is now seen in the superior vena cava in good posi tion. The findings were discussed with the primary care team on the date of the examination. DATA REPOSITORY: RADIATION DOSE DELIVERED:
[2023-07-15 13:35] VITALS: BP 132/61; PULSE 86; RESP 20; TEMP 36.7; O2SAT 94
[2023-07-15] MEDS: HYDROmorphone 2 MG/ML SYR 0.5 MG IVP (14:33)
[2023-07-15 15:12] VITALS: BP 112/50; PULSE 76; RESP 16; TEMP 37.2; O2SAT 92
--- NOTE | 2023-07-15 15:12 | PDOC.CMPRO ---
Date of service: 07/15/23 Care Management Progress Note Progress Note Text Progress Note Text: S/O: Gabbi was sitting up on the edge of the bed when talking with CM. Gabbi reports PICC insertion took a longer time than anticipated but is in place. Gabbi reported wanting to be discharged today. CM worked with [facility] for home IV ABX course. A: Gabbi is a 62 year old admitted to [facility] 07/12/23 for Prosthetic left knee infection. P: Anticipate Gabbi will discharge home when medically ready and follow up with community providers. She will transport via private vehicle with family. She will have new IV ABX through [facility] and new services with [facility]. CM will support evaluations for further needs. SDOH(Care Management) Screening Will the Patient Participate in the Screening?: Yes Do you worry about having a steady place to live?: choose not to answer In the past 12 months, have you had to go without electric, gas, oil or water in your home?: choose not to answer Have you or anyone in your house had to go without enough food to eat?: choose not to answer Has lack of transportation kept you from medical appointments or from doing things needed for daily living?: choose not to answer Has anyone in your support network made you feel unsafe for any reason?: choose not to answer
--- NOTE | 2023-07-15 15:49 | DSE_ITS ---
Date of service: 07/15/23 Time of Service: 12:30 DS: Diagnosis Discharge Diagnosis (1) Postoperative anemia due to acute blood loss: Status: Acute (2) Infection of prosthetic left knee joint: Status: Acute Discharge Plan Disposition Patient Disposition: Home W/Home Health Services Condition: Stable Discharge Details Reason For Visit: Prosthetic Left Knee Infection Admit Date/Time: 07/12/23 11:40 Admit Provider: Aldair Marina Attending Provider: Aldair Marina Primary Care Provider: None,None Hospital Course Hospital Course: Gabbi was admitted following surgery for infection of the left prosthetic knee. There was bone involvement and therefore the opponents were explanted and a low friction spacer was placed. Cultures continue to grow minimally, indicating gram-positive anaerobic primary organism. She was able to mobilize independently within her room. She received 1 unit of packed red blood cells due to falling hemoglobin and responded well from this. PICC line was placed and she was thus deemed safe for discharge to home with intravenous antibiotics. Home Meds and New Rx's Prescriptions: New ceftriaxone in dextrose,iso-os 2 gram/50 mL Piggyback 2 g IVPB Q24H Qty: 0 0RF aspirin 81 mg tablet,delayed release (DR/EC) 81 mg PO BID Qty: 60 0RF gabapentin 300 mg capsule 300 mg PO QHS Qty: 14 0RF oxycodone 5 mg tablet 5 mg PO Q4H PRNQty: 18 0RF Continued magnesium 200 mg tablet 200 mg PO .COMPLEX Rx Instructions: 200 mg PO 1-2 times weekly; diclofenac sodium [Voltaren Arthritis Pain] 1 % gel 4 g topical QID Qty: 100 3RF Rx Instructions: apply to left knee roflumilast 500 mcg tablet 500 mcg PO DAILY Qty: 90 12RF Rx Instructions: Start taking daily after 28 days of 250mcg dose levalbuterol HCl 1.25 mg/3 mL solution for nebulization 1.25 mg inhalation Q4H PRN (Reason: shortness of breath or wheezing) Qty: 540 12RF loratadine 5 MG/5 ML solution 10 mg PO DAILY PRN Trelegy Ellipta 200-62.5-25 mcg blister with device See Rx Instructions .ROUTE .COMPLEX Qty: 180 8RF Dose Instruction: INHALE ONE PUFF BY MOUTH EVERY DAY Rx Instructions: INHALE ONE PUFF BY MOUTH EVERY DAY omeprazole 40 mg capsule,delayed release(DR/EC) See Rx Instructions .ROUTE .COMPLEX Qty: 90 3RF Dose Instruction: TAKE ONE CAPSULE BY MOUTH EVERY DAY Rx Instructions: TAKE ONE CAPSULE BY MOUTH EVERY DAY albuterol sulfate [Ventolin HFA] 90 mcg/actuation HFA aerosol inhaler See Rx Instructions .ROUTE .COMPLEX Qty: 18 12RF Dose Instruction: INHALE TWO PUFFS BY MOUTH EVERY 4 HOURS NEEDED FOR SHORTNESS OF BREATH OR WHEEZING Rx Instructions: INHALE TWO PUFFS BY MOUTH EVERY 4 HOURS NEEDED FOR SHORTNESS OF BREATH OR WHEEZING multivitamin 1 EACH capsule 1 ea PO DAILY cholecalciferol (vitamin D3) [Vitamin D3] 2,000 UNIT tablet 2,000 unit PO DAILY celecoxib 200 mg capsule See Rx Instructions .ROUTE .COMPLEX Qty: 180 0RF Dose Instruction: TAKE ONE CAPSULE BY MOUTH TWICE DAILY Rx Instructions: TAKE ONE CAPSULE BY MOUTH TWICE DAILY acetaminophen 500 mg tablet 1,000 mg PO Q8H PRN Qty: 90 0RF Rx Instructions: Take two tablets up to every 8 hours as needed for pain Discontinued acetaminophen [8HR Muscle Aches-Pain] 650 mg tablet extended release 1,300 mg PO DIRECTED Discharge Instructions Additional Instructions: Knee Discharge Instructions Activity: You have no formal restrictions about the left knee. You may ambulate as tolerated although I do recommend always using an assistive device to offload the knee as needed. It is of little benefit to try to do too much or to do that without assistive device. He should work on some gentle range of motion, flexion extension although not pushing flexion past about 90 to 95 degrees. Additionally, you may work on active in your quadriceps and lifting the leg straight but avoid any squatting or kneeling. - You should wear the DEDRA hose on both legs for 2 weeks. You may remove these at night. You may also use any compression sock in place of the DEDRA hose. Dressing: There is a kacy dressing on your knee which has vacuum assistance. The batteries may need to be changed if the battery light blinks. If any otherwise splint different color than green, he should call the office to discuss the best next steps. This dressing will stay on until you follow-up in the office. The wound and dressing may get wet after 3 days but avoid soaking the dressing or otherwise it will need to be changed. Many people prefer covering the dressing with cling wrap (saran wrap) to minimize it from getting soaked. If it gets wet, just pat dry. If it starts to peel off then it will need to be changed. Medications: You will be on at least 6 weeks of IV antibiotics in the form of ceftriaxone 2 g daily. This will be administered through the PICC line along with regular PICC line care including normal saline flushes and heparin as indicated. - You should take Tylenol and anti-inflammatory Celebrex as your primary pain control medications. If the Celebrex is too expensive or not covered, please call the office for another alternative (Advil/Ibuprofen or Naproxen/Aleve) - You have been prescribed a stronger pain medication Oxycodone for breakthrough pain, take as needed as prescribed. - You will continue your stomach acid reduction agent omeprazole to help reduce stomach acid and reflux. - You have been prescribed Gabapentin to take at night for restlessness and nerve pain. - You will be taking Aspirin 81mg twice a day for DVT prevention unless instructed otherwise. - If you have constipation you should take Colace or Miralax (both excn-bgd-offlevr). It takes most people 3-4 days to have a bowel movement. -You may also consider adding probiotics either through labeled yogurt or supplements available in the pharmacy. Follow-up: 2 weeks If you have any acute concerns or questions, please do not hesitate to contact the office at [phone]. You may contact Dr. Marina with any questions after hours through the hospital at [phone] or on his cell phone at [phone]. 1. Encounter Date and Reason I certify that Gabbi Back was seen by Aldair Marina MD on 07/15/23 and that I had a [id number] encounter with this patient that meets the physician face to face encounter requirements. 2. Clinical Findings Supporting Skilled Need and Homebound Status I certify that home health services are medically necessary, include either intermittent senior living and/or physical/speech therapy, and that this patient is homebound in that absences from the home require considerable and taxing effort and are infrequent or of short duration, or are attributable to the need to receive medical care. [X] (a) Attached documentation from encounter provides clinical findings supporting skilled need and homebound status (including what assistance patient requires to leave the home). The encounter with the patient was in whole, or in part, for the following medical condition, which is the primary reason for home health care: Prosthetic Left Knee Infection Penitentiary: Gabbi would benefit from home health nursing to help manage complex medical condition associate with infection of her prosthetic left knee and home IV antibiotics. Physical Therapy: Gabbi would benefit from home health physical therapy occupational therapy to address her mobility deficiencies. She is status post explantation with antibiotic spacer about the left knee. She has no position restrictions but I do recommend assistive device at all times for weightbearing. Gentle range of motion would be encouraged up to about 90 to 95 degrees. Speech Therapy: Homebound: Gabbi is homebound. He is unable to leave her home unassisted due to notable weakness and gait dysfunction following explantation of knee replacement for infection. 3. Certification and Authentication I certify that I composed the above information based on my clinical judgement relating to this patient's medical condition and, if applicable, clinical findings communicated to me by the NPP or inpatient physician who performed the Home Health Referral. All further orders will be obtained through Dr. Marina. Stand Alone Forms: Nursing Discharge Form Referrals: Aldair Marina MD [ [facility] STAFF PHYSICIAN] - 07/25/23 1:00 pm Activity:: Activity as Tolerated Equipment/Supplies:: Walker Diet:: As Tolerated Discharge Orders Discharge Orders: Discharge Order (Routine); Ordered 07/15/23 Ordered By: Aldair Marina DS: Summary Time Spent with Patient providing and/or coordinating discharge services: Less than 30 minutes Status at Discharge Functional status at discharge: uses cane/walker Overall status at discharge: patient is not back to baseline Mental Status: mental status grossly normal Speech and Movement: speech and movement normal Mood: congruent mood Affect: normal affect Quality:SDOH Health Related Social Needs: No Data to Display Exam Psych Mental Status: mental status grossly normal Speech and Movement: speech and movement normal Mood: congruent mood Affect: normal affect DS: Data Vitals/I&O Vitals and I&O: Vital Signs Temperature 37.2 C 07/15/23 15:12 Temperature Source Tympanic 07/15/23 15:12 Pulse 76 07/15/23 15:12 Pulse Rhythm Regular 07/15/23 09:18 Respiratory Rate 16 07/15/23 15:12 Respiratory Effort Normal 07/15/23 09:18 Respiratory Depth Normal 07/15/23 09:18 Respiratory Pattern Normal 07/15/23 09:18 Blood Pressure 112/50 L 07/15/23 15:12 Blood Pressure Mean 97 07/12/23 13:15 Blood Pressure Position Supine 07/12/23 13:15 Pulse Oximetry 92 07/15/23 15:12 Respiratory End-tidal CO2 33 07/12/23 16:50 Oxygen Delivery Method Room Air 07/15/23 15:12 Oxygen Flow Rate 0 07/15/23 15:12 Pain Level 5 07/15/23 14:33 Comment REGISTERED NURSE Notified 07/15/23 03:19 Intake & Output 07/14/23 07/15/23 07/15/23 23:59 11:59 23:59 Intake Total 450 / 600 400 / 400 Output Total 950 / 1750 750 / 750 Balance -500 / -1150 -350 / -350 Intake: IV 160 / 310 Oral 400 / 400 Blood Product 290 / 290 Rbc Leuko Reduced Unit 290 / 290 [id number]* Output: Urine 950 / 1750 750 / 750 Other: Urine Color Yellow Yellow Urine Appearance Clear Clear Urine Odor Normal None Voiding Methods Bedside Commode Bedside Commode Data Completed and Pending Labs on day of discharge: Labs from last 24 hours 07/15/23 06:06 WBC 8.17 RBC 3.26 L Hgb 8.1 L Hct 27.4 L MCV 84 MCH 24.8 L MCHC 29.6 L RDW 15.6 H Plt Count 291 MPV 9.1 Sodium 140 Potassium 4.5 Chloride 103 Carbon Dioxide 26.8 Anion Gap 10.2 BUN 12 Creatinine 0.8 Est GFR (CKD-EPI 2020) 84.30 Glucose 115 H Calcium 8.5 C-Reactive Protein 16.71 H Preliminary micro results at discharge 07/12/23 12:47 Blood Culture - Preliminary Blood NO GROWTH 72 HOURS 07/12/23 12:38 Blood Culture - Preliminary Blood NO GROWTH 72 HOURS 07/12/23 14:00 Surgical Culture - Preliminary Knee - Left Joint 07/12/23 14:00 Surgical Culture - Preliminary Knee - Left 07/12/23 14:02 Surgical Culture - Preliminary Knee - Left Joint 07/12/23 14:02 Surgical Culture - Preliminary Knee - Left Joint 07/12/23 14:02 Surgical Culture - Preliminary Knee - Left Joint Gram Positive Cocci 07/12/23 14:02 Anaerobic Culture - Preliminary Knee - Left Joint 07/12/23 14:02 Anaerobic Culture - Preliminary Knee - Left Joint 07/12/23 14:00 Anaerobic Culture - Preliminary Knee - Left Joint 07/12/23 14:00 Anaerobic Culture - Preliminary Knee - Left Joint 07/12/23 14:02 Anaerobic Culture - Preliminary Knee - Left Joint PFSH All Active Problems Postoperative anemia due to acute blood loss (Acute) Infection of prosthetic left knee joint (Acute) Painful total knee replacement, left (Acute) Former cigarette smoker (Acute) Cough (Acute) History of total left knee replacement (Chronic 03/14/21) DOS 03/14/21 COPD (chronic obstructive pulmonary disease) (Chronic) Menopause present (Acute) Polyp of cervix (Acute) Localized edema (Acute) Cholelithiasis without obstruction (Acute) Allergic rhinitis (Acute) Migraine without aura (Acute) Obstructive sleep apnea syndrome in adult (Acute) Depressive disorder (Chronic) Generalized anxiety disorder (Acute) Anemia (Chronic) pt denies history of anemia Intestinal disaccharidase deficiency (Acute) Medical History History of obstructive sleep apnea pt. reports resolved with wt. loss History of asthma Acute bronchospasm COPD (chronic obstructive pulmonary disease) Acute exacerbation of chronic obstructive airways disease Pulmonary hypertension Pt. states she had this worked up and no longer is an issue Severe obesity Surgical History History of x2 Status post operation on nasal sinus ~2003, pt. reports two procedures S/P tubal ligation 03/25/1988 S/P cholecystectomy 09/23/2015 S/P laparoscopic sleeve gastrectomy 12/04/2016 Family History Mother Heart disease Hypertension Sister Heart disease age 61 Hypertension Father Emphysema, unspecified Social History Smoking/Tobacco Use Status: Former Tobacco Use Quit Date: 08/29/19 Pack-years: 40 Second Hand Exposure: Yes Smoking risk assessment performed?: Yes Alcohol Intake: current Alcohol Intake frequency: a few times a month Alcohol type: wine Details: 1 wine weekly Drug use: Never Substance use type: does not use Details: alcohol: t-2, glass of wine Housing: house Current gender identity: female Do you feel safe at home: Yes Do you feel safe in your relationship?: Yes Time Spent with Patient Time Spent with Patient: <45 minutes Time was spent: referring, communicating with other health healthcare interpreter, counseling the patient and care coordination
[2023-07-15] MEDS: cefTRIAXone 2 GM/50 ML BAG IVPB (16:08)
== END 2023-07-15 17:36 | disposition home health service (06) | DRG 464 ==
LOC: PDS 14:40 → MS 16:56
PROVIDERS: Admitting Provider Student in an Organized Health Care Education/Training Program; Visit Provider Student in an Organized Health Care Education/Training Program
PROC: 0SPD0JZ Removal of Synthetic Substitute from Left Knee Joint, Open Approach (ICD-10-PCS; CPT 27488; principal; 2023-07-12 13:30)
DX: T84.54XA Infection and inflammatory reaction due to internal left knee prosthesis, initial encounter (principal); D62 Acute posthemorrhagic anemia; M87.852 Other osteonecrosis, left femur; T84.84XA Pain due to internal orthopedic prosthetic devices, implants and grafts, initial encounter; Z87.891 Personal history of nicotine dependence; J44.9 Chronic obstructive pulmonary disease, unspecified; G47.33 Obstructive sleep apnea (adult) (pediatric); F32.A Depression, unspecified; F41.1 Generalized anxiety disorder; E73.9 Lactose intolerance, unspecified; G43.009 Migraine without aura, not intractable, without status migrainosus; E66.9 Obesity, unspecified; Z98.84 Bariatric surgery status; Z68.32 Body mass index [BMI] 32.0-32.9, adult
CPT/HCPCS: 36573; 27488; 20702; 36410; 36415; 71045; 76942; 80048; 85027; 86850; 86900; 86901; 86920; 87040; 87077; 94640; 97162; 97530; 73560; 80202; 85014; 85018; 86140; 87070; 87075; 87186; 87205; 94664; 94668; 94760; C1776; J0665; J0690; J0696; J1170; J1885; J2001; J2250; J2371; J2405; J2704; J3370; J3372; P9016; Q9968

== ENCOUNTER 2023-08-29 14:53 | Outpatient (CLI) | payer MEDICAID, SELFPAY ==
[2023-08-29 11:48] LABS: HCT 34.7 % (36.0-46.0); HGB 10.1 g/dL (11.2-15.7); MCH 24.6 pg (27.0-33.0); MCHC 29.1 % (32.0-36.0); MCV 85 fL (80-95); MPV 8.6 fL (8.0-11.0); Platelet Count 363 10^3/uL (130-400); RDW 17.2 % (11.7-14.6); WBC 6.67 10^3/uL (4.4-10.8)
[2023-08-29 12:17] LABS: Anion Gap 8.2 mmol/L (3-11); BUN 10 mg/dL (7-18); CO2 27.8 mmol/L (21.0-32.0); CREATININE 0.8 mg/dL (0.55-1.02); Calcium 8.6 mg/dL (8.5-10.1); Chloride 105 mmol/L (98-107); Glucose 101 mg/dL (74-106); Potassium 4.3 mmol/L (3.5-5.1); Sodium 141 mmol/L (136-145)
[2023-08-29 12:18] LABS: Clarity Cloudy; Nucleated Cells 1046 uL (0)
[2023-08-29 12:24] LABS: Mononuclear Cells 66 %; Polynuclear Cells 34 %
== END 2023-08-29 14:54 | disposition home or self-care (01) ==
LOC: LBO 14:54
PROVIDERS: Visit Provider Student in an Organized Health Care Education/Training Program
DX: T84.54XS Infection and inflammatory reaction due to internal left knee prosthesis, sequela (principal); Z01.818 Encounter for other preprocedural examination; X58.XXXA Exposure to other specified factors, initial encounter
CPT/HCPCS: 36415; 80048; 85027; 87070; 87205; 89051

== ENCOUNTER 2023-09-17 08:16 | Observation (INO) | payer MEDICAID, SELFPAY ==
[2023-09-17] VITALS (36 sets, daily range): BP systolic 95–177; BP diastolic 40–87; PULSE 54–82; RESP 12–20; TEMP 36.2–37.1; O2SAT 78–99
--- NOTE | 2023-09-17 | DI.RAD_ITS ---
Exam(s) XR KNEE LT 1V EXAM: XR KNEE LT 1V INDICATION: s/p revision L TKA. COMPARISON: CR,XR XR KNEE LT 2V AP,LAT from 07/12/2023 TECHNIQUE: 2D digital imaging was performed. Two single AP portable view. FINDINGS: The previously noted left knee prosthesis has been revised. The components appear to be in satisfact ory position base on the single view. DATA REPOSITORY: RADIATION DOSE DELIVERED:
[2023-09-17] MEDS: Acetaminophen 500 MG TAB 1000 MG PO ×3 (09:14→20:49)
[2023-09-17] MEDS: Celecoxib 200 MG CAP 400 MG PO (09:15)
[2023-09-17] MEDS: Gabapentin 300 MG CAP PO ×2 (09:15→20:50)
[2023-09-17] MEDS: Lactated Ringers 1,000 ML 80 ML IV ×2 (09:33→14:58)
--- NOTE | 2023-09-17 09:53 | W.ANESPRE ---
General Info Date of Service Date Performed: 09/17/23 Height: 4 ft 11 in Weight: 67.5 kg Body Mass Index (BMI): 30.0 Surgical Procedure: Operation Date: 09/17/23 11:10 Proposed Procedure Side Surgeon p Knee Total Revision Left Aldair Marina MD Meds Allergies and Home Medications Allergies Allergy/AdvReac Type Severity Reaction Status Date / Time prednisone Allergy Severe Anaphylaxis Verified 09/17/23 09:30 levofloxacin [From Levaquin] Allergy Intermediate Skin Rash Verified 09/17/23 09:30 Sulfa (Sulfonamide AdvReac Intermediate Anaphylaxis Verified 09/17/23 09:30 Antibiotics) amoxicillin [From Augmentin] AdvReac Unknown hives Verified 09/17/23 09:30 clavulanic acid AdvReac Unknown hives Verified 09/17/23 09:30 [From Augmentin] Augmentin Allergy Itching Uncoded 09/17/23 09:30 Home Medication Medication Instructions Recorded cholecalciferol (vitamin D3) 50 2,000 unit PO DAILY 10/11/16 mcg (2,000 unit) tablet (Vitamin D3) multivitamin 1 ea PO DAILY 10/11/16 loratadine 5 mg/5 mL oral solution 10 mg PO DAILY PRN 10/17/17 magnesium 200 mg tablet 200 mg PO .COMPLEX 03/10/21 roflumilast 500 mcg tablet 500 mcg PO DAILY #90 tabs 01/02/23 omeprazole 40 mg capsule,delayed See Rx Instructions .Route 03/11/23 release .COMPLEX #90 caps levalbuterol HCl 1.25 mg/3 mL 1.25 mg (3 mL) inhalation Q4H PRN 07/01/23 solution for nebulization shortness of breath or wheezing #540 mL albuterol sulfate 90 mcg/actuation See Rx Instructions .Route 07/05/23 aerosol inhaler (Ventolin HFA) .COMPLEX #18 grams acetaminophen 500 mg tablet 1,000 mg (2 x 500 mg) PO Q8H PRN 07/15/23 pain #90 tabs celecoxib 200 mg capsule See Rx Instructions .Route 07/15/23 .COMPLEX #180 caps fluticasone fur. 200 mcg-umeclid 1 inh inhalation DAILY #60 ea 07/16/23 62.5 mcg-vilant 25 mcg inhalat.powder (Trelegy Ellipta) fluconazole 150 mg tablet 150 mg PO Q3D 2 doses #2 tabs 07/25/23 aspirin 81 mg tablet,delayed 81 mg PO BID #60 tabs 08/17/23 release oxycodone 5 mg tablet 5 mg PO BID PRN pain #18 tabs 09/09/23 lorazepam 1 mg tablet (Ativan) 1 mg PO ONCE 09/17/23 Current Visit Medications: Current Medications Generic Name Dose Route Start Last Admin Trade Name Freq PRN Reason Stop Dose Admin Acetaminophen 1,000 mg 09/17/23 14:00 Acetaminophen 500 Mg Tab PO TID JACKELYN Aspirin 81 mg 09/17/23 08:30 Aspirin E.C. 81 Mg Tabec PO BID JACKELYN Celecoxib 400 mg 09/17/23 08:00 09/17/23 09:15 Celecoxib 200 Mg Cap PO 400 mg PREOP JACKELYN Administration Celecoxib 200 mg 09/17/23 08:30 Celecoxib 200 Mg Cap PO BID JACKELYN Docusate Sodium 100 mg 09/17/23 07:28 Docusate Sodium 100 Mg Cap PO BID PRN PRN Constipation Gabapentin 300 mg 09/17/23 20:00 Gabapentin 300 Mg Cap PO HS JACKELYN Hydromorphone HCl 0.5 mg 09/17/23 07:28 Hydromorphone 2 Mg/Ml Syr IVP Q2H PRN PRN Ringer's Solution 1,000 mls @ 80 mls/hr 09/17/23 06:00 09/17/23 09:33 IV 09/17/23 23:59 80 mls/hr INFUSION JACKELYN Administration Tranexamic Acid/Sodium Chloride 1,000 mg in 100 mls @ 600 mls/hr 09/17/23 07:15 IVPB PREOP JACKELYN Cefazolin Sodium/Dextrose 2 gm in 50 mls @ 100 mls/hr 09/17/23 07:15 Ancef Duplex IVPB PREOP JACKELYN IV Miscellaneous Supplies 1 each 09/17/23 06:00 Iv Access IV 09/17/23 23:59 DIRECTED JACKELYN Oxycodone HCl 0 mg 09/17/23 07:28 Oxycodone 5 Mg Tab PO Q3H PRN PRN Pain Pantoprazole Sodium 40 mg 09/17/23 07:30 Pantoprazole 40 Mg Tabcr PO DAILY@0730 JACKELYN Polyethylene Glycol 17 gm 09/17/23 07:28 Polyethylene Glycol 3350 17 Gm Packet PO BID PRN PRN Constipation Sodium Chloride 0 ml 09/17/23 06:00 Normal Saline Flush 10 Ml Syr IV 09/17/23 23:59 PRN PRN Sodium Chloride 0 ml 09/17/23 06:00 Normal Saline 10 Ml Vial IJ 09/17/23 23:59 DIRECTED PRN Sterile Water 0 ml 09/17/23 06:00 Water,Injection,Sterile 10 Ml Vial IJ 09/17/23 23:59 DIRECTED PRN PFSH Active Problems Active Problems: Problem Status Onset Code Infection of prosthetic left knee joint T84.54XA Former cigarette smoker Z87.891 Cough R05.9 History of total left knee replacement 03/14/21 Z96.652 COPD (chronic obstructive pulmonary disease) J44.9 Menopause present Z78.0 Polyp of cervix N84.1 Localized edema R60.0 Cholelithiasis without obstruction K80.20 Allergic rhinitis J30.9 Migraine without aura G43.009 Obstructive sleep apnea syndrome in adult G47.33 Depressive disorder F32.9 Generalized anxiety disorder F41.1 Anemia D64.9 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 reports resolved with wt. loss History of asthma Acute bronchospasm COPD (chronic obstructive pulmonary disease) Acute exacerbation of chronic obstructive airways disease Pulmonary hypertension Pt. states she had this worked up and no longer is an issue Severe obesity Medical History Comments:: Pt. states during her sinus surgery she didn't wake up well from that surgery I went into a mini-coma and ended up in the ICU Surgical History Surgical History History of x2 Status post operation on nasal sinus ~2003, pt. reports two procedures S/P tubal ligation 03/25/1988 S/P cholecystectomy 09/23/2015 S/P laparoscopic sleeve gastrectomy 12/04/2016 Tobacco Smoking/Tobacco Use Status: Former Tobacco Use Second hand exposure: Yes Alcohol Alcohol Intake: current Alcohol intake frequency: a few times a month Alcohol type: wine Details: 1 wine weekly Substance Use Substance use: Never Substance use type: does not use Details: alcohol: t-2, glass of wine Vital Signs and Lab Results Vital Signs Most Recent Vital Signs in EMR: Most Recent Vital Signs Temp Pulse Resp BP Pulse Ox 36.4 C L 54 L 16 177/63 H 97 09/17/23 08:56 09/17/23 08:56 09/17/23 08:56 09/17/23 08:56 09/17/23 08:56 Lab Results Blood Type / Crossmatch: No Data to Display Complete Blood Count: White Blood Count 6.67 10^3/uL (4.4-10.8) 08/29/23 11:40 Red Blood Count 4.10 10^6/uL (3.93-5.22) 08/29/23 11:40 Hemoglobin 10.1 g/dL (11.2-15.7) L 08/29/23 11:40 Hematocrit 34.7 % (36.0-46.0) L 08/29/23 11:40 Platelet Count 363 10^3/uL (130-400) 08/29/23 11:40 Complete Metabolic Panel: Sodium 141 mmol/L (136-145) 08/29/23 11:40 Potassium 4.3 mmol/L (3.5-5.1) 08/29/23 11:40 Chloride 105 mmol/L (98-107) 08/29/23 11:40 Carbon Dioxide 27.8 mmol/L (21.0-32.0) 08/29/23 11:40 BUN 10 mg/dL (7-18) 08/29/23 11:40 Creatinine 0.8 mg/dL (0.55-1.02) 08/29/23 11:40 Est GFR (CKD-EPI 2020) 84.30 (mL/min/1.73m2) 08/29/23 11:40 Calcium 8.6 mg/dL (8.5-10.1) 08/29/23 11:40 Glucose 101 mg/dL (74-106) 08/29/23 11:40 Liver Function Panel: No Data to Display Coagulation Panel: No Data to Display Cardiac Panel: No Data to Display Arterial Blood Gas: No Data to Display Venous Blood Gas: No Data to Display Pancreas Panel: No Data to Display Thyroid Panel: No Data to Display Infectious Disease: No Data to Display Blood Cultures: No Data to Display Toxicology Panel: No Data to Display Anesthesia Assessment and Plan Anesthesia History Personal History: Delayed Emergence Family History: No Family History of Anesthesia Complications Exercise Tolerance Exercise Tolerance: Metabolic Equivalents>4 Pertinent Negatives Pertinent Negatives: No Major Cardiovascular Symptoms or Complaints and No Major Pulmonary Symptoms or Complaints (chronic cough) Cardiac & Pulmonary Exam Cardiac Exam: Normal S1/S2 Heart Sounds Pulmonary Exam: Clear Bilateral Breath Sounds Cardiac and Pulmonary Comment:: Long COVID, respiratory status much improved per pt., lungs clear Implantable Cardiac Device Does patient have a Pacemaker or an ICD?: No Airway Exam Known Difficult Airway: Yes Mallampati Class: 3 Mouth Opening: Normal (> 3cm) Thyromental Distance: Greater than 3 cm Neck Range of Motion: Full ROM Neck Circumference: Thick Teeth Condition: Normal Dentition ASA Classification ASA Score: ASA 3 Emergency Case?: No NPO Status NPO Status: NPO Clears >2 hours, Solids >8 hours Anesthesia Plan Resuscitation Status: Full Code Anesthesia Technique: Spinal Anesthesia Airway Planned: Natural Airway Pain Management: Surgeon and patient request nerve block Monitors Used: Standard Monitors Preoperative Comments:: Previous Anes: - TKA hardware removal, spinal 2.5 ml 0.5% Bupiv and adductor - TKA, spinal 2 mL chloro, minimal sedation. Adductor, 2 mg, 15 mL 0.25%. - knee scope, sevo, LMA 4.
[2023-09-17] MEDS: ceFAZolin 2 GM/50 ML BAG IVPB (10:37)
[2023-09-17] MEDS: TRANEXAMIC ACID/SOD. CHL. 1,000 MG/100 ML BAG 600 MG IVPB (10:55)
--- NOTE | 2023-09-17 11:35 | W.ANESNERVE ---
Nerve Block Single Injection Procedure Date and Time Date Performed: 09/17/23 Procedure Start: 10:25 Location Where Procedure Performed Procedure Location: Day Surgery Unit Reason Performed: Postoperative Analgesia Requesting Provider: Aldair Marina Timeout Performed Timeout Performed: Yes Monitoring Used ECG, Blood Pressure, SpO2 and See EMR for corresponding vital signs Sterility Sterility: Hand Hygiene, Surgical Cap, Surgical Mask, Sterile Gloves, Sterile Drape/Sheet and Chlorhexidine Sedation Given During Procedure Sedation Given (Indicate Dose Given): Versed IV Dose:: 2 mg Patient Mental Status Patient Mental Status: Awake Nerve Block 1st Nerve Block: Laterality: Left Block Type: Adductor Canal Ultrasound Image Saved?: Yes Needle / Catheter Used: 100mm SonoPlex II Local Anesthetic Bolus (Indicate Dose Given): Lidocaine used for local infiltration of skin, Injected in 3-5ml increments after negative blood aspiration and Bupivacaine 0.25% Dose:: 15 ml Additives (Indicate Dose Given): None Ultrasound: Sterile probe cover and gel used Nerve Stimulator: Supplement to Ultrasound use and No twitch or parasthesia noted < 0.5 mA Paresthesia: None Procedure Tolerated: No Complications and Patient tolerated well Procedure Outcome: Successful Performed By: Lia Moffett
--- NOTE | 2023-09-17 13:50 | W.PM.OP ---
Date of service: 09/17/23 Time of Service: 11:05 Operative Note Operative Note DATE OF PROCEDURE: 09/17/23 PRE-OP DIAGNOSIS: Infected Left Total Knee with Spacer POST-OP DIAGNOSIS: same PROCEDURE: Conversion Arthroplasty of Left Knee - Removal of Spacer and placement of Revision Femoral/Tibial Components SURGEON: Aldair Marina MORTAR CARRIER: Haily Garvey ANESTHESIA TYPE: Spinal Refer to Anesthesia Record ESTIMATED BLOOD LOSS: 600 PATHOLOGY: none sent COMPLICATIONS: None Patient was transported to: PACU Patient's condition: stable Implants: FEMUR: - Depuy Attune Revision Femoral Component, Size 5 - Depuy Attune Posterior Augments, Medial and Lateral, 4mm - Depuy Attune Distal Augments, Medial and Lateral, 4mm - Depuy Attune Cementless Stem, [id number] - Depuy Attune Cementless Sleeve, 30mm TIBIA: - Attune Revision Rotating Platform Tray, Size 3 - Attune Cementless Stem, [id number] - Attune Partially Coated Cementless Sleeve, 29mm Indications: I have seen Gabbi for an infected left total knee arthroplasty. She underwent explantation of the arthroplasty with placement of antibiotic spacer. She completed 6 weeks of antibiotics. She had reaspiration after 2-week antibiotic holiday with no growth and with normalization of lab values. Therefore, I offered conversion arthroplasty, removing the antibiotic spacer in place and revision components for her knee. I explained the risks of the procedure to include, but not limited to, bleeding, infection, pain, stiffness, fracture, damage to nerves and vessels, damage to muscles and tendons, loosening, need for repeat procedure, blood clot and cardiopulmonary demise. Despite these risks, Gabbi elected to proceed. Findings: There is excellent tissue quality throughout. No signs of infection. The spacer was able to be removed with minimal bone loss and minimal damage to the surrounding tissues. However, there was still significant remnant bone loss, primarily of the femur, which was filled with cement. A revision arthroplasty was placed. There is a small crack in a medial cortical piece of the femur but was stable. Procedure Description: Gabbi was greeted in the preoperative holding area where the correct side was identified and marked. The consent was reviewed with the patient and signed. The history and physical was updated. All questions were answered. Preoperative mediacations were administered: Acetaminophen 1000mg, Celebrex 400mg, and Gabapentin 300mg. An adductor canal block was then administered by the anesthesia team in the D[facility]. Gabbi was taken back to the operating room. A spinal anesthestic was then administered. The patient was placed into the supine position on the operating room table. A nonsterile tourniquet was placed high onto the leg but only used for cementing. Posts were placed for positioning during the procedure. All bony prominences were well padded. Prophylactic antibiotics in the form of Cefazolin were administered. 1g of Tranxemic Acid was given intravenously within 30 minutes of incision. The right leg was then prepped with Chloraprep and draped in a standard fashion with impervious stockinette. A second prep with Chloraprep was performed prior to application of Iodine impregnated skin protection. A timeout to confirm correct identity, side and site, procedure, allergies, anesthesia, and medical concerns was performed. With the knee in some flexion, a midline incision was made overlying the knee utilizing the previous incision. Full thickness skin flaps were raised once the extensor mechanism was encountered. These were raised medially and laterally. Any bleeding was controlled with electrocautery. Once the extensor mechanism was fully exposed, a medial parapatellar arthrotomy was performed in a flexed position. The previous arthrotomy site was marked by the sutures and this was used to orient the location of the arthrotomy. All bleeding from the arthrotomy and the geniculate arteries was coagulated. Remnant suture material was removed. An aggressive synovectomy was performed anteriorly, superiorly, medially and laterally. A medial subperiosteal peel was performed with electrocautery to the midcoronal plane. The interface between the bone and cement was identified. This area was freed up with a flexible osteotome. The femoral component was removed with minimal difficulty using a bone tamp and a mallet for multiple positions. There is no notable bone loss with the removal. There was bone loss which was previously noted at the time of the initial debridement. Attention was then turned to the tibia. The tibial component was elevated out with an osteotome without difficulty. Cement was removed from the tibial surface. The intramedullary rods were also removed. An aggressive debridement was performed of the bone surfaces utilizing a curette, rongeur, and pulse lavage. Any remnant soft tissue and fibrous material was removed from the bone surface. Placement of the revision components then began with the tibia. I utilized the reamer on hand going up to size 14 mm reamer. Once this was in position I then broached for the sleeve. The first sleeve size, 29 mm, provided adequate rotational and axial control. This was placed a few millimeters below the edge of the bone. With this in place I used as a cutting surface to resect the top 1 to 2 mm of tibia. This was removed and trial component was placed. The tibial tray was rotated to fit the tibia, with some external rotation to the medial aspect of the tibial tubercle. This was locked into position. The femur was then reamed up to size 14 mm reamer by hand. Once again, a sleeve was utilized. A 30 mm sleeve provided axial and rotational control planning with a 4 mm offset. With this in position I then freshen the very distal cut of the femur. There was a rim of bone but there was very little metaphyseal bone in this region with large defects from the infection. Extension gap was then checked and was stable at 12 mm. In flexion, rotation was set utilizing 12 mm spacer block which showed adequate collateral ligament stability. The femoral cut guide was pinned into position. This showed no significant bone at the 0 mm position. There was some bone at 4 mm and therefore the posterior femur was cut for 4 mm augments medially and laterally. Posterior and anterior chamfer cuts were performed. The notch cut was also performed. Trial components were placed. The knee was taken through range of motion showed excellent stability in extension, mid flexion and flexion. The trial components were removed. The final components, except for the polyethylene were opened on the back table. The periosteal and capsular tissues, especially posteriorly, around the knee were then systematically injected with a periarticular cocktail consisting of 246mg of Ropivacaine, 0.5mg of Epinephrine, 0.08mg of Clonidine, and 30mg of Ketorolac, diluted to 100cc.. On the back table, the components were assembled. Utilizing the trials as a guide for rotational positioning of the sleeves, these were assembled and torqued appropriately. The knee was thoroughly irrigated with a pulse lavage and dried. 2 batches of medium viscosity cement were prepared with vacuum assistance. After the cement was ready a small amount was placed on to the back side of the tibial component. Cement was placed onto the posterior aspect of the femur, into the box and up to the base of the sleeve but not involving any cementless portions. Cement was manual pressurized and impregnated into the cut surface of the tibia. The tibial component was then inserted aligning the sleeve to its appropriate orientation and utilizing a christy on the tibia, performed during the trialing process, with the christy of the center of the tibia. Excess cement was removed and the component was reimpacted. Again, excess cement was removed and our attention was then turned to the femur. The femoral cut surface was once again dried and cement was manually impacted into the cut surface, which was minimal, and into the defects of the distal femur. The femoral component was aligned appropriately and then impacted. Excess cement was removed. It was ensured to be down against the cut surface. The trial polyethylene was then inserted and the leg was brought out into full extension for the duration of the cement curing process, approximately 18min. During this process attention was turned to the gutters of the knee and for all interfaces for any excess cement. While the cement was hardening, the knee was irrigated with Surgiphor chlorhexadine solution. This was allowed to sit in the knee for 3 minutes and then it was thoroughly irrigated with saline. After the cement had finally cured, approximately 18min, the clamp was removed from the patella and the knee was taken through range of motion. A size 12mm polyethylene component provided the best range of motion and stability with less than 2mm gapping with medial and lateral stress and full extension without significant hyperextension. The patella was tracking with a no-thumbs technique. The trial poly was removed and once again the knee was checked for any loose, excess, or errant cement. The poly component was then inserted after cleaning and drying the tibial tray. The capsule was then reapproximated with a #2 FiberWire at multiple locations. The capsule was finally closed with a No. 2 Stratafix, barbed suture. The tourniquet was then released and the arthrotomy appeared watertight without significant bleeding. Deep tissues were then reapproximated with 0 Vicryl and 2-0 Monocryl. The skin was closed with a running 3-0 Monocryl in a subcuticular fashion. This was reinforced with skin glue. A Mepilex silver dressing was applied along with a [id number] ASHLEY wrap. A CryoCuff was applied. Gabbi was transferred to the hospital bed without difficulty an suffering no apparent complication. Gabbi has a good prognosis. Physical therapy will start today and without restrictions, weight-bearing as tolerated. Aspirin 81mg BID will be used for DVT prophylaxis.
--- NOTE | 2023-09-17 15:10 | W.ANESPOSTOP ---
Postoperative Evaluation Date, Time and Location Date Performed: 09/17/23 Time Performed: 14:42 Patient Location: PACU Vital Signs Most Recent Imported Vital Signs: Most Recent Vital Signs Temp Pulse Resp BP Pulse Ox 36.6 C 82 18 97/74 L 95 09/17/23 15:00 09/17/23 15:00 09/17/23 15:00 09/17/23 15:00 09/17/23 15:00 Pain Score Most Recent Pain Score: Most Recent Pain Score Pain Level 8 09/17/23 15:00 Assessment Mental Status: Awake (Alert & Oriented to Patient Baseline) Airway and Respiratory Function: Patent airway with normal (patient baseline) respiratory exam Cardiovascular Function: Hemodynamically Stable Hydration Status: Adequately Hydrated Nausea & Vomiting: No Nausea or Vomiting Pain: Pain is Moderate or Severe Postoperative Pain Management: Pain being addressed with medication Peripheral Nerve Block: Regional nerve block not resolved at time of post operative discharge
--- NOTE | 2023-09-17 15:22 | IN_ITS ---
PT Notes Visit Reasons: Infected left TKA Inpatient Physical Therapy Initial Evaluation Date: 09/17/2023 Referring Doctor: DAVID Gunter PT Orders: PT CONSULT: S/p Ortho Surgery Precautions: Per Dr. Marina: WBAT on the L LE with AD. Patient Profile/Admitting Diagnosis: Gabbi is a 62-year-old female with infected L TKA and is S/P conversion arthroplasty of the L knee on postoperative day 0. PMHX: All Active Problems (Updated 08/31/23 @ 07:29 by Aldair Marina MD) Infection of prosthetic left knee joint (Acute) Former cigarette smoker (Acute) Cough (Acute) History of total left knee replacement (Chronic 03/14/21) DOS 03/14/21 COPD (chronic obstructive pulmonary disease) (Chronic) Menopause present (Acute) Polyp of cervix (Acute) Localized edema (Acute) Cholelithiasis without obstruction (Acute) Allergic rhinitis (Acute) Migraine without aura (Acute) Obstructive sleep apnea syndrome in adult (Acute) Depressive disorder (Chronic) Generalized anxiety disorder (Acute) Anemia (Chronic) pt denies history of anemia Intestinal disaccharidase deficiency (Acute) Medical History History of obstructive sleep apnea pt. reports resolved with wt. loss History of asthma Acute bronchospasm COPD (chronic obstructive pulmonary disease) Acute exacerbation of chronic obstructive airways disease Pulmonary hypertension Pt. states she had this worked up and no longer is an issue Severe obesity Surgical History History of x2 Status post operation on nasal sinus ~2003, pt. reports two procedures S/P tubal ligation 03/25/1988 S/P cholecystectomy 09/23/2015 S/P laparoscopic sleeve gastrectomy 12/04/2016 Social History/Home Situation: Lives in a 1-story private home with her boyfriend, has 2 steps to enter. Equipment Owned/DME: [facility] Bedside commode DEVON Subjective: Complained of 10/10 pain but was still willing to move with PT slowly. Reported some more increase in pain which after walking activity. Nurse Mariah veliz and managing. Does not prefer using cryocuff as she does not have a good reaction to cold. Objective: General Observation: IV access in L UE. TEDS on L leg. Mental Status: Alert and oriented x 4 Pain: As above Vital Signs: Closely monitored by nursing staff ROM: Right Lower Extremity: Hip flexion WFL. Hip abduction WFL. Knee flexion WFL. Ankle dorsiflexion WFL. Ankle plantarflexion WFL. Left Lower Extremity: Hip flexion WFL. Hip abduction WFL. Knee flexion 10 degrees to 90 degrees actively. Knee extension -10 degrees actively. Ankle dorsiflexion WFL. Ankle plantarflexion WFL. Strength: Right Lower Extremity: Hip flexors 5/5. Hip abductors 5/5. Knee flexors 5/5. Knee extensors 5/5. Ankle dorsiflexors 5/5. Ankle plantarflexors 5/5. Left Lower Extremity:Hip flexors 4/5. Hip abductors 4/5. Knee flexors 3-/5. Knee extensors 3-/5. Ankle dorsiflexors 5/5. Ankle plantarflexors 5/5. Bed Mobility/Transfers: Minimal cueing provided for use of B hands as needed for support, movement sequence, AD management, and posture to reduce fall risk and minimize pain report Supine-sit: stand by assist Sit-stand: contact guard assist with FWW Stand-Sit: contact guard assist with FWW Bed-bedside recliner: contact guard assist with FWW Gait: Facilitated safe and correct performance of level surface ambulation covering a distance of 80 feet using front wheeled walker with step to gait pattern with report of increased hip pain at 11/10 after activity. Nurse Mariah was informed of patient request to have pain pill. Denied headache, chest pain, and lightheadedness throughout session. Stairs: Deferred for this session Balance: Static Sitting: Normal Dynamic Sitting: Normal Static Standing: Fair Dynamic Standing: Fair Special Tests: Mobility Limitations Standardized Measure [facility] AM-PAC 6 clicks Basic Mobility Inpatient Short Form: Raw Score: 20 CMS Score: 47% Informed Consent/Education: Patient instructed in purpose of PT consult and plan of care. THERA ACT: Reviewed with patient with correct performance of exercises below to maximize motor control, joint flexibility, soft tissue extensibility of the L knee musculature: Access Code: [email or web address] URL: [email or web address] Date: 09/17/2023 Prepared by: Susie Nunez Exercises - Supine Quad Set - 1 x daily - 7 x weekly - 1 sets - 10 reps - 5 hold - Supine Heel Slide - 1 x daily - 7 x weekly - 1 sets - 10 reps - 5 hold - Supine Ankle Pumps - 1 x daily - 7 x weekly - 1 sets - 10 reps - 5 hold - Small Range Straight Leg Raise - 1 x daily - 7 x weekly - 1 sets - 10 reps - 5 hold - Seated March - 1 x daily - 7 x weekly - 1 sets - 10 reps - 5 hold Assessment: Gabbi is a 62-year-old female with infected L TKA and is S/P conversion arthroplasty of the L knee on postoperative day 0. Patient requires the use of a front-wheeled walker for all mobility ADL performance in order to maximize independence and reduce fall risk. Patient presents with clinical signs and symptoms consistent with current/admitting diagnoses that have resulted to mobility limitations, gait instability, generalized weakness, and impairment of motor control as demonstrated by the following impairment level findings: 1. Decreased strength to left knee major muscle groups 2. Impaired standing balance 3. Limitation of joint range of motion in left knee 4. Altered gait and balance Impairments are contributing to the following functional limitations: 1. Inability to safely ambulate without assistive device 2. Increase completion time for mobility ADL performance 3. Increased fall risk Patient is assessed as a 20756 moderate complexity based on the following: History: 62-year-old female with impairment level findings, functional limitations, and past medical history as indicated above Examination: Demonstrable impairment in strength, balance, and mobility level with underlying impairments and functional limitations as documented above Presentation: Evolving Decision Makin moderate complexity Goals: Goals X1 week 1. Supine-Sit Independent 2. Sit-Supine Independent 3. Sit-Stand Independent with FWW 4. Stand-Sit Independent 5. Bed-Chair Independent with FWW 6. Chair-Bed Independent with FWW 7. Gait WBAT FWW 300 ft or greater 8. Stairs up/down 2-3 steps with use of railing 9. Independent with home exercise program Plan of Care/Treatment Plan: 1-2x/day, 7 days/week x 1 week. Plan of care has been reviewed with the WORKFORCE MANAGEMENT CONSULTANT providing the service under Physical Therapy direction. Initiate Physical Therapy intervention for strengthening, bed mobility, transfers, gait, stairs, balance training, use of assistive device. Pre-medicate for pain for tomorrow's session. Provide copy of TKA exercises. DISCHARGE RECOMMENDATIONS: Home when medically cleared by orthopedic surgeon. Recommend outpatient PT services in order to optimize functional mobility outcomes and facilitate return to independent community ambulation without an assistive device. TREATMENT CODE/TIME: 9716 2 x 20 minutes for 1 unit, 9753 0 x 10 minutes for 1 unit space (15: 22?15: 52). Thank you for this referral. Please do not hesitate to contact me with any questions or concerns regarding this patient's plan of care. Please sign and return this page within 14 days if you agree with the above POC. Thank you! Referring Physician's Signature Date Susie Nunez PT, DPT, CLT [facility] [place], [place] [facility]
[2023-09-17] MEDS: oxyCODONE 5 MG TAB PO ×2 (15:55→21:46)
[2023-09-17] MEDS: ceFAZolin 1 GM/50 ML BAG IVPB (17:44)
[2023-09-17] MEDS: Tranexamic Acid 650 MG TAB 1300 MG PO (20:49)
[2023-09-17] MEDS: Aspirin E.C. 81 MG TABEC PO (20:51)
[2023-09-17] MEDS: Celecoxib 200 MG CAP PO (20:52)
[2023-09-17 22:08] LABS: HCT 27.5 % (36.0-46.0); HGB 8.1 g/dL (11.2-15.7)
[2023-09-18] VITALS (10 sets, daily range): BP systolic 110–128; BP diastolic 43–61; PULSE 56–74; RESP 17–18; TEMP 36.5–37.3; O2SAT 93–97
[2023-09-18] MEDS: oxyCODONE 5 MG TAB PO ×4 (01:27→14:11)
[2023-09-18] MEDS: ceFAZolin 1 GM/50 ML BAG IVPB ×2 (01:28→08:48)
[2023-09-18 06:40] LABS: HCT 24.2 % (36.0-46.0); MCH 25.3 pg (27.0-33.0); MCHC 29.3 % (32.0-36.0); MCV 86 fL (80-95); MPV 9.5 fL (8.0-11.0); Platelet Count 244 10^3/uL (130-400); RBC 2.81 10^6/uL (3.93-5.22); WBC 10.03 10^3/uL (4.4-10.8)
[2023-09-18 06:51] LABS: Anion Gap 7.7 mmol/L (3-11); BUN 18 mg/dL (7-18); CO2 25.3 mmol/L (21.0-32.0); CREATININE 1.1 mg/dL (0.55-1.02); Calcium 8.2 mg/dL (8.5-10.1); Chloride 106 mmol/L (98-107); Estimated GFR 57.52 (mL/min/1.73m2); Glucose 105 mg/dL (74-106); Sodium 139 mmol/L (136-145)
[2023-09-18 06:59] LABS: HGB 7.1 g/dL (11.2-15.7)
--- NOTE | 2023-09-18 07:45 | W.PM.PROGNOT ---
Date of Service Date of service: 09/18/23 Time of Service: 07:15 Assessment and Plan Assessment and plan (1) Infection of prosthetic left knee joint: Status: Acute Assessment and plan: Completed course of antibiotics with antibiotic spacer placement. She is now status post revision, conversion, arthroplasty about the left knee. Weightbearing as tolerated with assistive devices. No formal restrictions. I will continue provide antibiotic and for 1 week. Qualifiers: Encounter type: sequela Qualified Code(s): T84.54XS - Infection and inflammatory reaction due to internal left knee prosthesis, sequela (2) History of total left knee replacement: Status: Chronic (3) Anemia: Status: Chronic Assessment and plan: Hemoglobin dropped from 8.1-7.1. Given this precipitous drop and the known blood loss and her history of anemia, I will give her 1 unit of blood. Subjective Subjective Interval history since last seen: Gabbi did well overnight although with some pain. Vitals have been stable. She was able to ambulate yesterday. She feels that the knee is better than what it was from before surgery. Exam Narrative Exam Narrative: Sitting up in the bed. No acute distress. Alert and x 3. Dressing is dry and intact about the left leg. Straight leg raise intact. Active extension and flexion from 5 to 90 degrees. Active ankle dorsiflexion, plantarflexion, great toe extension, flexion. Sensation intact to light touch over the deep and superficial peroneal nerve and tibial nerve. Objective Last Vital Signs Temp 36.6 C 09/18/23 04:36 Pulse 74 09/18/23 04:36 Resp 18 09/18/23 04:36 BP 110/54 L 09/18/23 04:36 Pulse Ox 96 09/18/23 04:36 Laboratory Results - last 24 hr 09/17/23 09/17/23 09/18/23 09:11 22:00 06:30 WBC 10.03 RBC 2.81 L Hgb 8.1 L 7.1 L Hct 27.5 L 24.2 L MCV 86 MCH 25.3 L MCHC 29.3 L RDW 17.0 H Plt Count 244 MPV 9.5 Sodium 139 Potassium 5.0 Chloride 106 Carbon Dioxide 25.3 Anion Gap 7.7 BUN 18 Creatinine 1.1 H Est GFR (CKD-EPI 2020) 57.52 Glucose 105 Calcium 8.2 L ABO/Rh O Positive Antibody Screen NEGATIVE Time Spent with Patient Time Spent with Patient: 25-34 minutes Time was spent: preparing to see the patient(eg.review tests), obtaining and/or reviewing separately otained hiistory, indepentently interpreting results and counseling the patient
[2023-09-18] MEDS: Acetaminophen 500 MG TAB 1000 MG PO ×2 (08:46→14:11)
[2023-09-18] MEDS: Aspirin E.C. 81 MG TABEC PO (08:47)
[2023-09-18] MEDS: Celecoxib 200 MG CAP PO (08:47)
[2023-09-18] MEDS: Pantoprazole 40 MG TABCR PO (08:47)
[2023-09-18] MEDS: diphenhydrAMINE 25 MG CAP PO (08:47)
--- NOTE | 2023-09-18 08:59 | PDOC.CMIN ---
Date of service: 09/18/23 Time of Service: 08:59 Care Management Initial Assmt Initial Assessment Reason for Hospitalization: Anticipate Nathalie will return home once medically cleared. She has expressed interest in rehab for alcohol use post discharge; this is a self referral. CM provided resources on previous admission; will review. She will transport via private vehicle by a friend. She will follow up with her PCP and discharge plan of care. CM will continue to follow. Functional Status/Living Situation Town of Residence: [place], [place] Significant Other/Family: [facility] Advance Directives Advance Directives: Do you have an Advance Directive: N 10/08/16 08:17 AD On File at [facility]: N 09/10/16 09:16 Date Asked 09/17/23 09/13/23 12:49 AD Date Reviewed COLST On File at [facility] COLST Date Scanned Code Status Resuscitation Status Full Code Insurance Coverage/Financial Issues Insurance: Medicaid ACO Member: No Care Team Visit Care Team Role Provider Type None None Primary Care Provider NON-[facility] STAFF PHYSICIAN InPatient Tim Sherman Other Providers OTHER Aldair Marina MD Admit Provider [facility] STAFF PHYSICIAN Attending Provider Discharge Potential Discharge Needs: Surgical F/U Appt Anticipated Barriers to Discharge: None Identified Patient/Family Education Needs: Review discharge instructions, discuss Ask Me Three Transportation: Private vehicle Plan: Anticipate Gabbi will be discharged home when medically cleared by provider. She will follow up with her surgeon and plan of care and transport with family. CM will follow. 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 reports resolved with wt. loss History of asthma Acute bronchospasm COPD (chronic obstructive pulmonary disease) Acute exacerbation of chronic obstructive airways disease Pulmonary hypertension Pt. states she had this worked up and no longer is an issue Severe obesity Surgical History History of x2 Status post operation on nasal sinus ~2003, pt. reports two procedures S/P tubal ligation 03/25/1988 S/P cholecystectomy 09/23/2015 S/P laparoscopic sleeve gastrectomy 12/04/2016 Family History Mother Heart disease Hypertension Sister Heart disease age 61 Hypertension Father Emphysema, unspecified Social History Smoking/Tobacco Use Status: Former Tobacco Use Quit Date: 08/28/01 Pack-years: 40 Second Hand Exposure: Yes Smoking risk assessment performed?: Yes Alcohol Intake: current Alcohol Intake frequency: a few times a month Alcohol type: wine Details: 1 wine weekly Drug use: Never Substance use type: does not use Details: alcohol: t-2, glass of wine Housing: house Current gender identity: female Do you feel safe at home: Yes Do you feel safe in your relationship?: Yes SDOH(Care Management) Screening Will the Patient Participate in the Screening?: Declined to provide Do you worry about having a steady place to live?: choose not to answer In the past 12 months, have you had to go without electric, gas, oil or water in your home?: choose not to answer Have you or anyone in your house had to go without enough food to eat?: choose not to answer Has lack of transportation kept you from medical appointments or from doing things needed for daily living?: choose not to answer Has anyone in your support network made you feel unsafe for any reason?: choose not to answer
[2023-09-18] MEDS: Normal Saline Flush 10 ML SYR IVP (09:38)
--- NOTE | 2023-09-18 11:59 | PTTR_ITS ---
PT Notes Visit Reasons: Infected left TKA Inpatient Physical Therapy Treatment Note Date: 09/18/2023 Precautions: Per Dr. Marina: WBAT on the L LE with AD. Subjective: Has been independent inside room. Knows her exercises but willing to review with PT for this session. Objective: General Observation: IV access in L UE. TEDS on R leg. Mental Status: Alert and oriented x 4 Pain: As above Vital Signs: Closely monitored by nursing staff Bed Mobility/Transfers: Minimal cueing provided for use of B hands as needed for support, movement sequence, AD management, and posture to reduce fall risk and minimize pain report Supine-sit: independent Sit-stand: independent with FWW Stand-Sit: independent with FWW Bed-bedside recliner: independent with FWW Gait: Able to cover in-room ambulation using FWW without any difficulty. Tolerates up to 150 feet of level surface ambulation with just supervision assist. Stairs: Deferred for this session Balance: Static Sitting: Normal Dynamic Sitting: Normal Static Standing: Fair Dynamic Standing: Fair THERA EX: Reviewed with patient with correct performance of exercises below to maximize motor control, joint flexibility, soft tissue extensibility of the L knee musculature: Access Code: [email or web address] URL: [email or web address] Date: 09/17/2023 Prepared by: Susie Nunez Exercises - Supine Quad Set - 1 x daily - 7 x weekly - 1 sets - 10 reps - 5 hold - Supine Heel Slide - 1 x daily - 7 x weekly - 1 sets - 10 reps - 5 hold - Supine Ankle Pumps - 1 x daily - 7 x weekly - 1 sets - 10 reps - 5 hold - Small Range Straight Leg Raise - 1 x daily - 7 x weekly - 1 sets - 10 reps - 5 hold - Seated March - 1 x daily - 7 x weekly - 1 sets - 10 reps - 5 hold Assessment: Gabbi is a 62-year-old female with infected L TKA and is S/P conversion arthroplasty of the L knee on postoperative day 0. Patient requires the use of a front-wheeled walker for all mobility ADL performance in order to maximize independence and reduce fall risk. Patient presents with clinical signs and symptoms consistent with current/admitting diagnoses that have resulted to mobility limitations, gait instability, generalized weakness, and impairment of motor control as demonstrated by the following impairment level findings: 1. Decreased strength to left knee major muscle groups 2. Impaired standing balance 3. Limitation of joint range of motion in left knee 4. Altered gait and balance Impairments are contributing to the following functional limitations: 1. Inability to safely ambulate without assistive device 2. Increase completion time for mobility ADL performance 3. Increased fall risk DISCHARGE RECOMMENDATIONS: Home when medically cleared by orthopedic surgeon. Recommend outpatient PT services in order to optimize functional mobility outcomes and facilitate return to independent community ambulation without an assistive device. TREATMENT CODE/TIME: 32481 x 16 minutes for 1 unit (11:51?12:07).
--- NOTE | 2023-09-18 12:31 | PHA.REVIEW2 ---
Pharmacy Admission Review Admission Clinical Review Admission Pharmacy Review: prednisone Allergy (Severe, Verified 09/17/23 09:30) Anaphylaxis levofloxacin [From Levaquin] Allergy (Intermediate, Verified 09/17/23 09:30) Skin Rash Sulfa (Sulfonamide Antibiotics) Adverse Reaction (Intermediate, Verified 09/17/23 09:30) Anaphylaxis amoxicillin [From Augmentin] Adverse Reaction (Unknown, Verified 09/17/23 09:30) hives clavulanic acid [From Augmentin] Adverse Reaction (Unknown, Verified 09/17/23 09:30) hives Augmentin Allergy (Uncoded 09/17/23 09:30) Itching Resuscitation Status Full Code Height 4 ft 11 in Weight 67.5 kg Pharmacy Admission Review Renal Dosing Renal Dosing: BUN 18 mg/dL (7-18) 09/18/23 06:30 Creatinine 1.1 mg/dL (0.55-1.02) H 09/18/23 06:30 Medications needing adjustments: Reviewed (CrCl 57.8 mL/min) List of meds needing interventions: Current medications are okay Anticoagulation Anticoagulation: Hgb 7.1 g/dL (11.2-15.7) L 09/18/23 06:30 Hct 24.2 % (36.0-46.0) L 09/18/23 06:30 Plt Count 244 10^3/uL (130-400) 09/18/23 06:30 Creatinine 1.1 mg/dL (0.55-1.02) H 09/18/23 06:30 DVT Prophylaxis: Reviewed (SCDs/TEDs) Opiate Usage Evaluate Pain Scale/Pains Meds: Reviewed (PRN hydromorphone and oxycodone ) Scheduled Bowel Reg ordered if on Opiates?: No (PRN docusate and Miralax) Relevant Labs Relevant Labs: Sodium 139 mmol/L (136-145) 09/18/23 06:30 Potassium 5.0 mmol/L (3.5-5.1) 09/18/23 06:30 Chloride 106 mmol/L (98-107) 09/18/23 06:30 Electrolytes, C-Reactive P, ESR: Reviewed (Hgb decreased from 8.1 to 7.1) Cardiac Review Cardiac Review: Blood Pressure 122/43 1149 Blood Pressure 127/52 1116 Blood Pressure 127/52 1112 Blood Pressure 124/50 1042 Blood Pressure 128/58 1027 Blood Pressure 115/61 0955 Blood Pressure 116/60 0940 Blood Pressure 119/58 0804 Blood Pressure 110/54 0436 BP, HR, EF%: Reviewed (BP 122/43 and HR 56) QTc Review QTc: Reviewed (No EKG on file) IV to PO Switch IV Medications: Reviewed (cefazolin and hydromorphone) Home Meds Home Med List reviewed: Reviewed Relevent Home Meds Not ordered & why?: albuterol, vitamin D3, Trelegy, levelalbuterol, loratadine, lorazepam, magnesium, multivitamin, omeprazole (has order for pantoprazole) and roflumilast Will reach out to provider if patient is not discharged today Current Meds Current Medication Order Review: Intervened Comments: Discontinued preop orders from yesterdays procedure Added IV admission order set Pharmacy Antibiotic Review Comments: Cefazolin post op
--- NOTE | 2023-09-18 12:46 | W.PM.DS.N ---
Date of service: 09/18/23 Time of Service: 12:46 Discharge Plan Disposition Patient Disposition: Home W/Home Health Services Condition: Good Discharge Details Reason For Visit: Infected left TKA Admit Date/Time: 09/17/23 08:16 Admit Provider: Aldair Marina Attending Provider: Aldair Marina Primary Care Provider: None,None Hospital Course Hospital Course: Patient was admitted to the medical/surgical floor following the procedure. The surgery was tolerated well without any notable medical, surgical, or anesthetic complications. Mobilization began postoperatively. She was voiding spontaneously. Vitals were stable. Physical therapy worked with the patient and was cleared for discharge home. No acute medical issues. Pain was controlled on oral regimen. Home Meds and New Rx's Prescriptions: New gabapentin 300 mg capsule 300 mg PO QHS Qty: 14 0RF oxycodone 10 mg tablet 10 mg PO Q4H PRNQty: 30 0RF cefadroxil 500 mg capsule 500 mg PO BID Qty: 14 0RF Continued magnesium 200 mg tablet 200 mg PO .COMPLEX Rx Instructions: 200 mg PO 1-2 times weekly; roflumilast 500 mcg tablet 500 mcg PO DAILY Qty: 90 12RF Rx Instructions: Start taking daily after 28 days of 250mcg dose levalbuterol HCl 1.25 mg/3 mL solution for nebulization 1.25 mg inhalation Q4H PRN (Reason: shortness of breath or wheezing) Qty: 540 12RF fluconazole 150 mg tablet 150 mg PO Q3D Qty: 2 0RF Rx Instructions: TAKE 1 TABLET BY MOUTH ON DAY 1, THEN TAKE THE SECOND TABLET ON DAY 3 loratadine 5 MG/5 ML solution 10 mg PO DAILY PRN omeprazole 40 mg capsule,delayed release(DR/EC) See Rx Instructions .ROUTE .COMPLEX Qty: 90 3RF Dose Instruction: TAKE ONE CAPSULE BY MOUTH EVERY DAY Rx Instructions: TAKE ONE CAPSULE BY MOUTH EVERY DAY albuterol sulfate [Ventolin HFA] 90 mcg/actuation HFA aerosol inhaler See Rx Instructions .ROUTE .COMPLEX Qty: 18 12RF Dose Instruction: INHALE TWO PUFFS BY MOUTH EVERY 4 HOURS NEEDED FOR SHORTNESS OF BREATH OR WHEEZING Rx Instructions: INHALE TWO PUFFS BY MOUTH EVERY 4 HOURS NEEDED FOR SHORTNESS OF BREATH OR WHEEZING Trelegy Ellipta 200-62.5-25 mcg blister with device 1 inh inhalation DAILY Qty: 60 12RF multivitamin 1 EACH capsule 1 ea PO DAILY cholecalciferol (vitamin D3) [Vitamin D3] 2,000 UNIT tablet 2,000 unit PO DAILY lorazepam [Ativan] 1 mg tablet 1 mg PO ONCE aspirin 81 mg tablet,delayed release (DR/EC) 81 mg PO BID Qty: 60 0RF acetaminophen 500 mg tablet 1,000 mg PO Q8H PRN Qty: 90 0RF Rx Instructions: Take two tablets up to every 8 hours as needed for pain Changed celecoxib 200 mg capsule 200 mg PO BID Qty: 180 0RF Dose Instruction: TAKE ONE CAPSULE BY MOUTH TWICE DAILY Rx Instructions: TAKE ONE CAPSULE BY MOUTH TWICE DAILY Discontinued oxycodone 5 mg tablet 5 mg PO BID MDD 2 tabs PRN (Reason: pain) Qty: 18 0RF Discharge Instructions Additional Instructions: Knee Discharge Instructions Activity: The most important activity is to walk and to work on gentle motion (both flexion and extension). You should try to take short walks a few times a day. It is important that when resting you work on keeping the knee straight. Avoid putting a pillow behind the knee as this will encourage flexion. Work on range of motion exercises as provided by Physical Therapy. - You should wear the DEDRA hose on both legs for 2 weeks. You may remove these at night. You may also use any compression sock in place of the DEDRA hose. - Utilize [employer] to review exercises, see videos on exercises and obtain basic information pertaining to your surgery and your recovery. Dressing: Keep the surgical dressing in place for at least one week. After the first week it may be removed and replaced with light gauze and tape or nothing. The wound and dressing may get wet after 3 days but avoid soaking the dressing or otherwise it will need to be changed. Many people prefer covering the dressing with cling wrap (saran wrap) to minimize it from getting soaked. If it gets wet, just pat dry. If it starts to peel off then it will need to be changed. Medications: - You should take Tylenol and anti-inflammatory Celebrex as your primary pain control medications. If the Celebrex is too expensive or not covered, please call the office for another alternative (Advil/Ibuprofen or Naproxen/Aleve) - You have been prescribed a stronger pain medication Oxycodone for breakthrough pain, take as needed as prescribed. - You will continue your stomach acid reduction agent Omeprazole to help reduce stomach acid and reflux. - You have been prescribed Gabapentin to take at night for restlessness and nerve pain. - You will be taking Aspirin 81mg twice a day for DVT prevention unless instructed otherwise. - If you have constipation you should take Colace or Miralax (both [id number]). It takes most people 3-4 days to have a bowel movement. Follow-up: 2 weeks If you have any acute concerns or questions, please do not hesitate to contact the office at [phone]. You may contact Dr. Marina with any questions after hours through the hospital at [phone] or on his cell phone at [phone]. 1. Encounter Date and Reason I certify that Gabbi Back was seen by Aldair Marina MD on 09/18/23 and that I had a [id number] encounter with this patient that meets the physician face to face encounter requirements. 2. Clinical Findings Supporting Skilled Need and Homebound Status I certify that home health services are medically necessary, include either intermittent senior living and/or physical/speech therapy, and that this patient is homebound in that absences from the home require considerable and taxing effort and are infrequent or of short duration, or are attributable to the need to receive medical care. [X] (a) Attached documentation from encounter provides clinical findings supporting skilled need and homebound status (including what assistance patient requires to leave the home). The encounter with the patient was in whole, or in part, for the following medical condition, which is the primary reason for home health care: Infected left TKA Residential: Physical Therapy: Gabbi will benefit from home health physical therapy due to notable restrictions and gait, strength, and range of motion. She is status post revision knee arthroplasty on the left side. She is weightbearing as tolerated with assistive devices. Physical therapy should focus initially on some gentle range of motion, strengthening, and gait training. Speech Therapy: Homebound: Patient is unable to leave her home unassisted due to weakness, pain, gait alterations. 3. Certification and Authentication I certify that I composed the above information based on my clinical judgement relating to this patient's medical condition and, if applicable, clinical findings communicated to me by the NPP or inpatient physician who performed the Home Health Referral. All further orders will be obtained through Dr. Marina. Referrals: Aldair Marina MD [ [facility] STAFF PHYSICIAN] - Activity:: Activity as Tolerated Equipment/Supplies:: Walker Diet:: As Tolerated Discharge Orders Discharge Orders: Discharge Order (Routine); Ordered 09/18/23 Ordered By: Aldair Marina DS: Summary Time Spent with Patient providing and/or coordinating discharge services: Less than 30 minutes Status at Discharge Functional status at discharge: uses cane/walker Overall status at discharge: patient is progressing back to baseline Mental Status: mental status grossly normal Speech and Movement: speech and movement normal Mood: congruent mood Affect: normal affect Quality:SDOH Health Related Social Needs: No Data to Display Exam Psych Mental Status: mental status grossly normal Speech and Movement: speech and movement normal Mood: congruent mood Affect: normal affect DS: Data Vitals/I&O Vitals and I&O: Vital Signs Temperature 97.7 F 09/17/23 13:43 Temperature Source Temporal Artery Scan 09/17/23 10:25 Pulse 68 09/17/23 14:16 Pulse Rhythm Regular 09/17/23 08:56 Pulse 71 09/17/23 14:16 Respiratory Rate 16 09/17/23 14:16 Respiratory Depth Normal 09/17/23 08:56 Blood Pressure 108/73 09/17/23 14:16 Blood Pressure Mean 83 09/17/23 14:16 Blood Pressure Position Supine 09/17/23 10:25 Pulse Oximetry 99 09/17/23 14:16 Respiratory End-tidal CO2 33 09/17/23 14:16 Oxygen Delivery Method Room Air 09/17/23 14:14 Oxygen Flow Rate 0 09/17/23 13:43 Pain Level 0 09/17/23 14:14 Comment Patient received 2mg of versed at start of procedure. Continued to be conversant throughout nerve block procedure. Delroy Moffett CRNA assisted by VICTORINO Maldonado. At conclusion of procedure, Pepper Tang RN came to room to transport patient to OR. 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) Former cigarette smoker (Acute) Cough (Acute) 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 reports resolved with wt. loss History of asthma Acute bronchospasm COPD (chronic obstructive pulmonary disease) Acute exacerbation of chronic obstructive airways disease Pulmonary hypertension Pt. states she had this worked up and no longer is an issue Severe obesity Surgical History History of x2 Status post operation on nasal sinus ~2003, pt. reports two procedures S/P tubal ligation 03/25/1988 S/P cholecystectomy 09/23/2015 S/P laparoscopic sleeve gastrectomy 12/04/2016 Family History Mother Heart disease Hypertension Sister Heart disease age 61 Hypertension Father Emphysema, unspecified Social History Smoking/Tobacco Use Status: Former Tobacco Use Quit Date: 08/28/01 Pack-years: 40 Second Hand Exposure: Yes Smoking risk assessment performed?: Yes Alcohol Intake: current Alcohol Intake frequency: a few times a month Alcohol type: wine Details: 1 wine weekly Drug use: Never Substance use type: does not use Details: alcohol: t-2, glass of wine Housing: house Current gender identity: female Do you feel safe at home: Yes Do you feel safe in your relationship?: Yes Time Spent with Patient Time Spent with Patient: <45 minutes Time was spent: obtaining and/or reviewing separately otained hiistory, ordering medications,tests, procedures, referring, communicating with other health direct support professional caregiver, indepentently interpreting results and counseling the patient
[2023-09-18 13:33] LABS: HGB 8.5 g/dL (11.2-15.7)
--- NOTE | 2023-09-18 13:40 | CHAPLAIN ---
Gabbi was sitting up in bed when I visited. She told me about her initial knee surgery, then the infection, and her surgery yesterday. Gabbi has a strong apoorva in God and Virgilio and said God has chosen to give her healing boyer. She shared some examples with me of when she was involved with healing others. She is sure that her knee will be healed. She has a strong prayer life and connection to both God and [place]. Gabbi said her knee is already feeling better than before the surgery. Is sounds like she is well supported by family.
--- NOTE | 2023-09-18 18:10 | PDOC.CMPRO ---
Date of service: 09/18/23 Time of Service: 18:10 Care Management Progress Note Progress Note Text Progress Note Text: Gabbi was admitted on 09/17/23 for a second surgery on her infected left TKA (first surgery for infection in .) Gabbi did well surgically although she did lose some blood and her HGB dropped. She received a unit of blood and was able to be discharged home today. No new services were needed. Discharge Potential Discharge Needs: Surgical F/U Appt Anticipated Barriers to Discharge: None Identified Patient/Family Education Needs: Review discharge instructions, discuss Ask Me Three Transportation: Private vehicle Plan: Gabbi will be discharged home with no new services. She will follow up with her orthopedic surgeon and plan of care and transport with family. SDOH(Care Management) Screening Will the Patient Participate in the Screening?: Declined to provide Do you worry about having a steady place to live?: choose not to answer In the past 12 months, have you had to go without electric, gas, oil or water in your home?: choose not to answer Have you or anyone in your house had to go without enough food to eat?: choose not to answer Has lack of transportation kept you from medical appointments or from doing things needed for daily living?: choose not to answer Has anyone in your support network made you feel unsafe for any reason?: choose not to answer
== END 2023-09-18 14:29 | disposition home health service (06) ==
LOC: PDS 14:37 → MS 14:37
PROVIDERS: Admitting Provider Student in an Organized Health Care Education/Training Program; Visit Provider Student in an Organized Health Care Education/Training Program
PROC: (CPT 27487; principal; 2023-09-17 11:00)
DX: T84.54XA Infection and inflammatory reaction due to internal left knee prosthesis, initial encounter (principal); Z96.652 Presence of left artificial knee joint; Z87.891 Personal history of nicotine dependence; R71.0 Precipitous drop in hematocrit; J44.9 Chronic obstructive pulmonary disease, unspecified; G43.009 Migraine without aura, not intractable, without status migrainosus; E73.9 Lactose intolerance, unspecified; F41.1 Generalized anxiety disorder; F32.A Depression, unspecified; G47.33 Obstructive sleep apnea (adult) (pediatric); E66.01 Morbid (severe) obesity due to excess calories; Z68.30 Body mass index [BMI] 30.0-30.9, adult
CPT/HCPCS: 27487; 20705; 36415; 76942; 80048; 85027; 86850; 86900; 86901; 86920; 96365; 96366; 97110; 97162; 97530; 73560; 85014; 85018; C1776; G0378; J0461; J0665; J0690; J1100; J1596; J2250; J2371; J2405; J2704; P9016

== ENCOUNTER 2023-10-07 12:31 | Outpatient (CLI) | payer MEDICAID, SELFPAY ==
--- NOTE | 2023-10-07 09:30 | DI.RAD_ITS ---
Exam(s) XR KNEE LT 2V AP,LAT EXAM: XR KNEE LT 2V AP,LAT CLINICAL HISTORY: Revision L TKA. TECHNIQUE: 2D digital imaging was performed. COMPARISON: CR XR KNEE LT 1V from 09/17/2023 FINDINGS: Two views. The revised prosthesis components remain in satisfactory position alignment. No fractures nor loosen ing evident. No evidence of osteomyelitis IMPRESSION: Stable satisfactory appearance DATA REPOSITORY: RADIATION DOSE DELIVERED:
--- NOTE | 2023-10-07 10:00 | DI.RAD_ITS ---
Exam(s) XR FEMUR LT EXAM: XR FEMUR LT INDICATION: eval L femur s/p revision tka. COMPARISON: CR XR STANDING ALIGNMENT from 03/27/2021 CR XR KNEE LT 3V AP,LAT,MATY from 07/11/2023 CR,XR XR KNEE LT 2V AP,LAT from 07/12/2023 CR XR KNEE LT 1V from 09/17/2023 CR XR KNEE LT 2V AP,LAT from 10/07/2023 TECHNIQUE: 2D digital imaging was performed. Two views. FINDINGS: A revised knee prosthesis is noted appeared unchanged from the prior exam. The hip joint space is ma intained. On the lateral view of the distal femur and knee, there is a lucency seen in the anterior cortex at the level of the tip of the femoral component of the knee prosthesis. This may be postoper ative. Not visible in field of view on the prior exam. DATA REPOSITORY: RADIATION DOSE DELIVERED:
== END 2023-10-07 12:32 | disposition home or self-care (01) ==
LOC: DIORS 12:32
PROVIDERS: Visit Provider Student in an Organized Health Care Education/Training Program
DX: Z96.652 Presence of left artificial knee joint (principal)
CPT/HCPCS: 73552; 73560

== ENCOUNTER 2023-10-28 10:20 | Outpatient (CLI) | payer MEDICAID, SELFPAY ==
--- NOTE | 2023-10-28 10:00 | DI.RAD_ITS ---
Exam(s) XR FEMUR LT EXAM: XR FEMUR LT CLINICAL HISTORY: F/U FRACTURE. TECHNIQUE: 2D digital imaging was performed. AP and lateral views. COMPARISON: None. FINDINGS: Revised left knee prosthesis appears unchanged. The tibial component is not fully included on the im ages. No abnormal bony lucencies. IMPRESSION: Stable postsurgical appearance. DATA REPOSITORY: RADIATION DOSE DELIVERED:
== END 2023-10-28 10:21 | disposition home or self-care (01) ==
LOC: DIORS 10:21
PROVIDERS: Visit Provider Student in an Organized Health Care Education/Training Program
DX: M97.8XXA Periprosthetic fracture around other internal prosthetic joint, initial encounter (principal); Z96.652 Presence of left artificial knee joint
CPT/HCPCS: 73552

== ENCOUNTER 2023-11-18 14:22 | Outpatient (CLI) | payer MEDICAID, SELFPAY ==
--- NOTE | 2023-11-18 13:15 | DI.RAD_ITS ---
Exam(s) XR FEMUR LT EXAM: XR FEMUR LT CLINICAL HISTORY: pain. TECHNIQUE: 2D digital imaging was performed. Three views. COMPARISON: None. FINDINGS: BONES: No acute fracture is present. Previously noted fracture above the stem of the femoral compone nt of the knee prosthesis has healed. No residual deformity. No bony destructive lesion is seen. JOINTS: Stable appearance of revised total knee prosthesis. The left hip joint space is maintained. SOFT TISSUE: Mild vascular calcifications. IMPRESSION: Stable appearance of revised knee prosthesis. Healing of previously noted fracture of the distal fem ur, above the level of the prosthesis. DATA REPOSITORY: RADIATION DOSE DELIVERED:
--- NOTE | 2023-11-18 13:15 | DI.RAD_ITS ---
Exam(s) XR KNEE LT 2V AP,LAT EXAM: XR KNEE LT 2V AP,LAT INDICATION: pain. COMPARISON: CR XR KNEE LT 2V AP,LAT from 10/07/2023 TECHNIQUE: 2D digital imaging was performed. Two views. FINDINGS: Revised total knee prosthesis which is unchanged. No abnormal bony lucencies. DATA REPOSITORY: RADIATION DOSE DELIVERED:
== END 2023-11-18 14:23 | disposition home or self-care (01) ==
LOC: DIORS 14:22
PROVIDERS: Visit Provider Physician Assistant
DX: M97.8XXA Periprosthetic fracture around other internal prosthetic joint, initial encounter (principal); Z96.652 Presence of left artificial knee joint
CPT/HCPCS: 73552; 73560

== ENCOUNTER 2023-12-30 15:26 | Outpatient (CLI) | payer MEDICAID, SELFPAY ==
--- NOTE | 2023-12-30 13:45 | DI.RAD_ITS ---
Exam(s) XR KNEE LT 2V AP,LAT EXAM: XR KNEE LT 2V AP,LAT INDICATION: F/U L KNEE. COMPARISON: CR XR KNEE LT 2V AP,LAT from 11/18/2023 TECHNIQUE: 2D digital imaging was performed. Two views. FINDINGS: Stable alignment revised knee prosthesis. No abnormal surrounding bony lucencies. Small joint effus ion. DATA REPOSITORY: RADIATION DOSE DELIVERED:
== END 2023-12-30 15:27 | disposition home or self-care (01) ==
LOC: DIORS 16:12
PROVIDERS: Visit Provider Student in an Organized Health Care Education/Training Program
DX: M97.8XXD Periprosthetic fracture around other internal prosthetic joint, subsequent encounter (principal); Z96.642 Presence of left artificial hip joint; Z98.890 Other specified postprocedural states
CPT/HCPCS: 73560

== ENCOUNTER 2024-04-09 15:35 | Outpatient (CLI) | payer MEDICAID, SELFPAY ==
--- NOTE | 2024-04-09 10:42 | DI.RAD_ITS ---
Exam(s) XR FEMUR LT EXAM: XR FEMUR LT CLINICAL HISTORY: R KNEE PAIN. TECHNIQUE: 2D digital imaging was performed. Three views. COMPARISON: None. FINDINGS: BONES: No acute fracture is present. Slight lucency now seen around the tip of the femoral component of the prosthesis which could indicate loosening. JOINTS: No dislocation present. Revised total knee prosthesis is unchanged in position. SOFT TISSUE: Normal. IMPRESSION: Slight lucency now seen around the tip of the femoral component of the revised prosthesis which could indicate loosening. DATA REPOSITORY: RADIATION DOSE DELIVERED:
== END 2024-04-09 15:36 | disposition home or self-care (01) ==
LOC: DIORS 15:36
PROVIDERS: Visit Provider Student in an Organized Health Care Education/Training Program
DX: Z98.890 Other specified postprocedural states (principal); M25.561 Pain in right knee
CPT/HCPCS: 73552

== ENCOUNTER 2024-06-05 02:15 | Outpatient (CLI) | payer MEDICAID, SELFPAY ==
[2024-06-05] MEDS: Levalbuterol HFA 15 GM INH 4 PUFF IH (14:09)
[2024-06-05] MEDS: Inhaler, Assist Device 1 EACH MC (14:09)
--- NOTE | 2024-06-07 16:22 | W.PFT ---
Date of service: 06/05/24 Time of Service: 12:49 Pulmonary Function Test Result Indications: COPD Interpretation Spirometry: There is moderate airflow limitation. No significant bronchodilator response. Lung Volumes: There is hyperinflation and air trapping Diffusion Capacity: Decreased diffusion Airway Pressure: Normal airways resistance Impression Moderate airflow obstruction with air trapping and a decreased diffusion. Clinical Correlation therefore is recommended.
== END 2024-06-05 02:16 | disposition home or self-care (01) ==
LOC: RT 02:15
PROVIDERS: Visit Provider Student in an Organized Health Care Education/Training Program
DX: J44.9 Chronic obstructive pulmonary disease, unspecified (principal)
CPT/HCPCS: 94060; 94726; 94729

== ENCOUNTER 2024-07-02 14:53 | Outpatient (CLI) | payer MEDICAID, SELFPAY ==
--- NOTE | 2024-07-02 14:01 | DI.RAD_ITS ---
Exam(s) XR KNEE LT 3V AP,LAT,MATY XR FEMUR LT EXAM: XR FEMUR LT and XR knee LT 3 V CLINICAL HISTORY: F/U LEFT KNEE. TECHNIQUE: 2D digital imaging was performed of the left knee and femur. Seven images were obtained. AP and lateral views were obtained. COMPARISON: CR XR KNEE LT 2V AP,LAT from 11/18/2023 CR XR KNEE LT 2V AP,LAT from 12/30/2023 CR XR FEMUR LT from 04/09/2024 FINDINGS: BONES: No acute fracture is present. No bony destructive lesion is seen. There is again seen a left t otal knee arthroplasty. The lucency seen around the proximal aspect of the femoral component of the arthroplasty is unchanged compared to the prior examination from 04/09/2024. There is also now lucency seen at the interface at the medial aspect of the tibial component. There is also new lucency about the distal aspect of the tibial component best appreciated on the lateral view. SOFT TISSUE: Atherosclerotic calcification is present. IMPRESSION: 1. New lucency seen around the tibial component of the arthroplasty suspicious for loosening. Infect ion cannot be excluded. Please correlate clinically. 2. Stable lucency seen around the proximal aspect of the femoral component of the arthroplasty since 04/09/2024. DATA REPOSITORY: RADIATION DOSE DELIVERED:
== END 2024-07-02 14:54 | disposition home or self-care (01) ==
LOC: DIORS 14:53
PROVIDERS: Visit Provider Student in an Organized Health Care Education/Training Program
DX: M97.8XXA Periprosthetic fracture around other internal prosthetic joint, initial encounter (principal); Z96.642 Presence of left artificial hip joint; Z96.652 Presence of left artificial knee joint
CPT/HCPCS: 73552; 73562

== ENCOUNTER 2024-07-02 18:22 | Outpatient (REF) | payer MEDICAID, SELFPAY ==
[2024-07-02 16:44] LABS: HCT 37.1 % (36.0-46.0); HGB 10.8 g/dL (11.2-15.7); MCH 24.4 pg (27.0-33.0); MCHC 29.1 % (32.0-36.0); MCV 84 fL (80-95); MPV 10.5 fL (8.0-11.0); Platelet Count 309 10^3/uL (130-400); RBC 4.42 10^6/uL (3.93-5.22); RDW 17.5 % (11.7-14.6); RDW-SD 54.1 fL; WBC 7.29 10^3/uL (4.4-10.8)
[2024-07-02 16:45] LABS: ESR 30 mm/hr (0-30)
[2024-07-02 16:53] LABS: C-Reactive Protein < 0.50 mg/dL (<or=0.5)
[2024-07-02 17:14] LABS: Clarity Cloudy; Nucleated Cells 720 uL (0)
[2024-07-02 17:15] LABS: Mononuclear Cells 82 %; Polynuclear Cells 18 %
== END 2024-07-02 18:23 | disposition home or self-care (01) ==
LOC: LBN 18:22
PROVIDERS: Visit Provider Student in an Organized Health Care Education/Training Program
DX: M97.8XXA Periprosthetic fracture around other internal prosthetic joint, initial encounter (principal); Z96.652 Presence of left artificial knee joint
CPT/HCPCS: 85027; 85652; 86140; 87070; 87205; 89051

== ENCOUNTER 2024-08-06 15:16 | Outpatient (REF) | payer MEDICAID, SELFPAY ==
[2024-08-06 14:19] LABS: Clarity Cloudy
[2024-08-06 14:20] LABS: Nucleated Cells 1102 uL (0)
[2024-08-06 14:29] LABS: Mononuclear Cells 46 %; Polynuclear Cells 54 %
== END 2024-08-06 15:17 | disposition home or self-care (01) ==
LOC: LBN 15:16
PROVIDERS: PCP Student in an Organized Health Care Education/Training Program; Visit Provider Student in an Organized Health Care Education/Training Program
DX: Z96.652 Presence of left artificial knee joint (principal); T84.54XS Infection and inflammatory reaction due to internal left knee prosthesis, sequela
CPT/HCPCS: 87070; 87205; 89051